=== PATIENT | male | born 1955 | race Caucasian/White ===

== ENCOUNTER → 2022-05-11 11:25 | Outpatient (CLI) | payer MEDICARE, SELFPAY | PROVIDERS: PCP Nurse Practitioner Family; Visit Provider Nurse Practitioner Family | DX: M54.9 Dorsalgia, unspecified (principal) | CPT/HCPCS: 87086 ==

== ENCOUNTER → 2022-06-27 14:23 | Outpatient (CLI) | payer MEDICARE, SELFPAY ==
[2022-06-27 14:19] LABS: Basophils # 0.1 K/mm3 (0-0.2); Basophils % 0.8 % (0.1-2.0); Eosinophils # 0.2 K/mm3 (0.0-0.4); Eosinophils % 2.1 % (0.1-12.0); Hemoglobin 16.2 g/dL (14.1-18.0); Lymphocytes # 1.5 K/mm3 (0.7-4.5); Lymphocytes % 21.2 % (10-50); Mean Corpuscular HGB Conc 33.1 g/dL (31.8-35.4); Mean Corpuscular Hemoglobin 32.7 pg (27.0-31.2); Mean Corpuscular Volume 98.9 fl (80-94); Mean Platelet Volume 8.5 fl (7.4-10.4); Monocytes # 0.7 K/mm3 (0.1-1.0); Monocytes % 9.1 % (1.7-9.3); Neutrophils # 4.8 K/mm3 (1.8-7.8); Neutrophils % 66.8 % (37.0-80.0); Platelet Count 262 K/mm3 (142-424); Red Blood Count 4.96 M/mm3 (4.60-6.20); Red Cell Distribution Width 13.8 % (11.5-17.5); White Blood Count 7.2 K/mm3 (4.8-10.8)
[2022-06-27 15:17] LABS: Alanine Aminotransferase 59 U/L (12-78); Albumin Level 4.6 g/dl (3.5-5.0); Albumin/Globulin Ratio 1.6 (1.1-1.8); Alkaline Phosphatase 55 U/L (38-126); Anion Gap 12.8 mEq/L (5-15); Aspartate Amino Transferase 46 U/L (17-59); Blood Urea Nitrogen 14 mg/dl (9-20); Calcium 9.4 mg/dl (8.4-10.2); Carbon Dioxide 30 mmol/L (22.0-30.0); Chloride 100 mmol/L (98-107); Chol/HDL Ratio 4.1 (1-3.5); Cholesterol 155 mg/dl (140-200); Estimated Glomerular Filt Rate 84 ml/min (>60); GFR (African American) 102 ML/MIN (>60); Globulin 2.8 g/dL (1.3-3.2); Glucose 112 mg/dl (74-100); HDL Cholesterol 38 mg/dl (40-60); Potassium 4.8 mmoL/L (3.5-5.1); Sodium 138 mmol/L (136-145); Total Protein,Serum 7.4 g/dl (6.3-8.2); Triglycerides 196 mg/dl (30-150); VLDL Cholesterol 39 mg/dL (0-40)
[2022-06-27 15:35] LABS: Direct LDL Cholesterol 88.46 mg/dL (100-129)
[2022-06-27 15:54] LABS: Hemoglobin A1C 6.5 % (4.0-6.0)
== END ==
PROVIDERS: PCP Family Medicine; Visit Provider Family Medicine
DX: E11.9 Type 2 diabetes mellitus without complications (principal); R07.89 Other chest pain
CPT/HCPCS: 80053; 80061; 83036; 85025

== ENCOUNTER → 2023-01-02 08:12 | Outpatient (CLI) | payer MEDICARE, SELFPAY ==
[2023-01-02 21:15] LABS: Alanine Aminotransferase 49 U/L (12-78); Albumin Level 4.6 g/dl (3.5-5.0); Albumin/Globulin Ratio 1.6 (1.1-1.8); Alkaline Phosphatase 66 U/L (38-126); Anion Gap 13.3 mEq/L (5-15); Aspartate Amino Transferase 57 U/L (17-59); Bilirubin,Total 1.1 mg/dl (0.2-1.3); Blood Urea Nitrogen 20 mg/dl (9-20); Calcium 9.8 mg/dl (8.4-10.2); Carbon Dioxide 26 mmol/L (22.0-30.0); Chloride 103 mmol/L (98-107); Chol/HDL Ratio 4.5 (1-3.5); Cholesterol 184 mg/dl (140-200); Estimated Glomerular Filt Rate 84 ml/min (>60); GFR (African American) 102 ML/MIN (>60); Globulin 2.9 g/dL (1.3-3.2); Glucose 119 mg/dl (74-100); HDL Cholesterol 41 mg/dl (40-60); Potassium 4.3 mmoL/L (3.5-5.1); Sodium 138 mmol/L (136-145); Total Protein,Serum 7.5 g/dl (6.3-8.2); Triglycerides 272 mg/dl (30-150); VLDL Cholesterol 54 mg/dL (0-40)
[2023-01-02 21:26] LABS: Direct LDL Cholesterol 102.59 mg/dL (100-129)
[2023-01-02 21:38] LABS: Basophils # 0.1 K/mm3 (0-0.2); Basophils % 0.6 % (0.1-2.0); Eosinophils # 0.3 K/mm3 (0.0-0.4); Eosinophils % 4.1 % (0.1-12.0); Hematocrit 47.5 % (42.0-52.0); Hemoglobin 16.6 g/dL (14.1-18.0); Lymphocytes # 1.3 K/mm3 (0.7-4.5); Lymphocytes % 18.3 % (10-50); Mean Corpuscular HGB Conc 34.9 g/dL (31.8-35.4); Mean Corpuscular Hemoglobin 34.9 pg (27.0-31.2); Mean Corpuscular Volume 99.8 fl (80-94); Mean Platelet Volume 8.6 fl (7.4-10.4); Monocytes # 0.5 K/mm3 (0.1-1.0); Monocytes % 7.4 % (1.7-9.3); Neutrophils % 69.6 % (37.0-80.0); Platelet Count 219 K/mm3 (142-424); Red Blood Count 4.76 M/mm3 (4.60-6.20); White Blood Count 7.2 K/mm3 (4.8-10.8)
[2023-01-02 21:44] LABS: Prostate Specific Ag Screen 0.9 ng/ml (0.0-4.0)
[2023-01-02 22:06] LABS: Hemoglobin A1C 6.2 % (4.0-6.0)
== END ==
PROVIDERS: PCP Family Medicine; Visit Provider Family Medicine
DX: Z00.00 Encounter for general adult medical examination without abnormal findings (principal); Z12.5 Encounter for screening for malignant neoplasm of prostate; E11.9 Type 2 diabetes mellitus without complications; R07.89 Other chest pain; Z79.899 Other long term (current) drug therapy
CPT/HCPCS: 80053; 80061; 83036; 85025; G0103

== ENCOUNTER 2023-12-29 09:20 | Outpatient (CLI) | payer MEDICARE, SELFPAY | END 2023-12-29 23:59 | disposition home or self-care (01) | LOC: LAB.DROPOF 01-01 09:20 | PROVIDERS: PCP Nurse Practitioner Family; Visit Provider Nurse Practitioner Family | DX: R31.9 Hematuria, unspecified (principal) | CPT/HCPCS: 87086 ==

== ENCOUNTER 2024-10-14 16:30 | Outpatient (CLI) | payer MEDICARE, SELFPAY ==
--- OUTSIDE RECORDS SUMMARY | 2024-09-12 10:15 | XMS_ITS | Encounter Summary ---
Author Organization 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 Name Role Phone Jorge Hagen MD Primary Care Provider [phone] Reason for Referral * Echo (Routine) - Authorized Specialty Diagnoses / Procedures Referred By Contac t Referred To Contact Radiology Diagnoses Hx of CABG Ischemic cardiomyopathy Procedures EC ECHOCARDIOGRAM COMPLETE W DOPPLER AND COLOR FLOW MAPPING Anand Victor MD [address] [place] [address] Phone: tel: fax: Referral ID Status Reason Start Date Expiration Date V isits Requested Visits Authorized [id number] Authorized 09/12/2024 09/12/2026 1 1 Reason for Visit * Reason Comments Follow-up 6 mo ck Encounter Details Date Type Department Care Team (Latest Contact Info) Description 09/12/2024 10:15 AM EDT Office Visit SEP H&V NPTFTT [address] [place] [phone] Anand Victor MD [address] [place] [address] Coronary artery disease involving [place] coronary artery of [place] heart without angina pectoris (Primary Dx); Hx of CABG; Ischemic cardiomyopathy; Essential hypertension; Paroxysmal atrial fibrillation (HCC); Pure hypercholesterolemia Social History Tobacco Use Types Packs/Day Years Used Date Smoking Tobacco: Former Cigarettes 3 27.8 0 03/06/1970 - 12/29/1997 Smokeless Tobacco: Former Quit: 12/29/1997 Tobacco Cessation:Counseling Given: Not Answered Alcohol Use Standard Drinks/Week Comments Yes 4 (1 standard drink = 0.6 oz pur e alcohol) 4-6 /day. BEER Hunger Vital Sign Answer Date Recorded Within the past 12 months, y ou worried that your food would run out before you got the money to buy more. Never true 03/29/19 23 Within the past 12 months, t he food you bought just didn't last and you didn't have money to get more. Never true 03/29/2022 PRAPARE - Transportation Answer Date Re corded In the past 12 months, has l ack of transportation kept you from medical appointments or from getting medications? No 03/07 In the past 12 months, has l ack of transportation kept you from meetings, work, or from getting things needed for daily living? No 03/29/2022 Sex and Gender Information Value Date Recorded Sex Assigned at Not on file Legal Sex Male 7:07 PM EDT Gender Identity Not on file Sexual Orientation Not on file documented as of this encounter Last Filed Vital Signs Vital Sign Reading Time Taken Comments Blood Pressure 124/60 09/12/2024 10:12 AM EDT Pulse 64 09/12/2024 10:12 AM EDT Temperature - - Respiratory Rate - - Oxygen Saturation 98% 09/12/2024 10: 12 AM EDT Inhaled Oxygen Concentration - - Weight 107.7 kg (237 lb 6.4 oz) 025 10:12 AM EDT Height 182.9 cm (6') 09/12/2024 10:12 AM EDT Body Mass Index 32.2 09/12/2024 10:12 AM EDT documented in this encounter Ordered Prescriptions Prescription Sig Dispense Quantity Refills Last Filled Start Date End Date apixaban (ELIQUIS) 5 mg Oral Tablet Take 1 Tablet by mouth 2 times daily. 60 Tablet 5 09/12/2024 09/12/2024 documented in this encounter Progress Notes * Anand Victor MD - 09/12/2024 10:15 AM EDT Cardiology Follow Up Visit Name: Brayan Garciasmitt : 1955 Referring Physician Jorge Hagen MD Reason for Follow-up CAD, ICM, A.Fib HPI 68 y.o. male is seen for follow up regarding CAD, ICM and persistent atrial fibrillation. He feels fairly well. Remains very active without anginal symptoms. There is some confusion regarding his medications. Apparently he is not taking Eliquis but remains on asa and Plavix. ROS Positive: arthritic pain Denies: Change in vision, headache, fever, chills, nausea, vomiting, anorexia, diarrhea, change in bowel or bladder habits, weight loss or gain. No palpitations, lightheadedness, dizziness, syncope, or near syncope. No extreme fatigue, daytime solomence or change in energy level. No significant depression or anhedonia. Current Outpatient Medications Medication Sig Dispense Refill albuterol (PROVENTIL HFA;VENTOLIN HFA) 90 mcg/actuation Inhl HFA Aerosol Inhaler Inhale 2 Puffs into the lungs every 6 hours as needed for Shortness of Breath. apixaban (ELIQUIS) 5 mg Oral Tablet Take 1 Tablet by mouth 2 times daily. 60 Tablet 5 aspirin 81 mg Oral Tablet, Chewable Take 1 Tablet by mouth daily. 30 Tablet 11 calcium carbonate (TUMS) 200 mg calcium (500 mg) chewable tablet Take 1 Tab by mouth as needed for Heartburn. clopidogreL (PLAVIX) 75 mg Oral Tablet Take 75 mg by mouth once. fluconazole (DIFLUCAN) 200 mg Oral Tablet Take 200 mg by mouth once a week. fUROsemide (LASIX) 80 mg Oral Tablet Take 1 Tab by mouth 2 times daily. isosorbide mononitrate (IMDUR) 30 mg Oral Tablet Sustained Release 24 hr Take 30 mg by mouth every morning. losartan (COZAAR) 25 mg tablet Take 25 mg by mouth daily. metoprolol succinate ER (TOPROL-XL) 100 mg Oral Tablet Sustained Release 24 hr Take 1 Tablet by mouth daily. 30 Tablet 11 nitroGLYCERIN (NITROSTAT) 0.[address] 1 Tab under the tongue every 5 minutes as needed. 25 Tab 4 potassium chloride (K-DUR) 10 mEq Oral Tablet Sustained Release Take 1 Tab by mouth 2 times daily. rosuvastatin (CRESTOR) 40 mg Oral Tablet Take 40 mg by mouth daily. traMADoL (ULTRAM) 50 mg Oral Tablet Take 50 mg by mouth 3 times daily as needed for Pain. triamcinolone (KENALOG) 0.1 % Top Cream Apply topically daily as needed. vitamin E 400 unit Oral Capsule Take 800 Units by mouth daily. No current facility-administered medications for this visit. Allergies Allergen Reactions Atropine Hives, Other (See Comments) and Rash Red Dye Rash and Other (See Comments) Amlodipine Rash Objective Vitals: 09/12/24 1012 BP: 124/60 Pulse: 64 SpO2: 98% Exam: GENERAL APPEARANCE: In no acute distress HEENT: Normocephalic, Atraumatic, Sclera anicteric, Pupils equal, round, and reactive. NECK: No JVD, No Bruit. Carotid upstrokes are full. RESPIRATORY: diminished at bases. No rales or wheezing HEART: IIR No Murmur VASCULAR: Normal pulses, equal bilaterally. ABDOMEN: Soft, nontender, no organomegaly, no distension. EXTREMITIES: No edema No cyanosis. Good capillary refill. No results found for this visit on 09/12/24. Labs Lab Results Component Value Date CHOLESTEROL 161 08/17/2018 CHOLESTEROL 257 (H) 04/06/2016 HDL 32 (L) 08/17/2018 HDL 35 (L) 04/06/2016 HDL 39 07/19/2014 LDLCALC 92 08/17/2018 LDLCALC 182 (H) 04/06/2016 LDLCALC 99 07/19/2014 TRIG 187 (H) 08/17/2018 TRIG 199 (H) 04/06/2016 Lab Results Component Value Date INR 1.22 (H) 03/31/2022 INR 1.29 (H) 03/28/2022 INR 1.22 (H) 04/06/2016 Lab Results Component Value Date WBC 6.7 03/29/2022 WBC 7.4 03/28/2022 WBC 6.4 03/17/2022 HGB 17.3 03/29/2022 HGB 17.1 03/28/2022 HGB 17.6 (H) 03/17/2022 HCT 48.5 03/29/2022 HCT 48.6 03/28/2022 HCT 49.0 03/17/2022 MCV 94.2 03/29/2022 MCV 94.7 03/28/2022 MCV 94.6 03/17/2022 PLT 167 03/29/2022 PLT 157 03/28/2022 PLT 178 03/17/2022 No results found for: HGBA1C Lab Results Component Value Date NA 133 (L) 03/29/2022 NA 136 03/28/2022 NA 132 (L) 03/17/2022 K 4.3 03/31/2022 K 4.4 03/29/2022 K 4.0 03/28/2022 BUN 13 03/29/2022 BUN 12 03/28/2022 BUN 22 03/17/2022 CALCIUM 9.9 03/29/2022 CALCIUM 9.6 03/28/2022 CALCIUM 10.1 03/17/2022 CL 98 03/29/2022 CL 99 03/28/2022 CL 95 (L) 03/17/2022 CO2 25 03/29/2022 CO2 25 03/28/2022 CO2 25 03/17/2022 CREATININE 0.98 03/29/2022 CREATININE 0.97 03/28/2022 CREATININE 1.08 03/17/2022 GLU 93 03/29/2022 GLU 95 03/28/2022 GLU 102 (H) 03/17/2022 Lab Results Component Value Date ALT 53 (H) 03/28/2022 ALT 42 (H) 03/17/2022 ALT 68 (H) 04/23/2019 AST 43 (H) 03/28/2022 AST 36 03/17/2022 AST 47 (H) 04/23/2019 ALKPHOS 54 03/28/2022 ALKPHOS 67 03/17/2022 ALKPHOS 55 04/23/2019 Cardiac Testing: Echo 03/19: EF 40%, bas-septal and inf AK, mild MR Charanjit-SPECT 03/19: small apical lateral rev defect (refuses any further eval) Cardiac Cath 04/22: graft dependent dz with patent: SVG to PDA, SVG to OM2, LOCKHART to LAD. EF 50-55% GXT - Myoview 08/22: 5.4 METs. Normal ekgf and nuclear perfusion. EF 50% Echo 09/24: EF 40-45%. Mild global HK. Severe HK of basilar inferior. Mild RVD. Echo 04/29: EF 40%. The basal inferoseptal is akinetic. The apical inferior wall, mid inferior wall,basal anterior wall, mid anterior wall, mid inferoseptal, basal anterolateral wall, mid anterolateral wall, basal anteroseptal, mid anteroseptal, basal inferolateral wall, and mid inferolateral wall are hypokinetic.Ascending aorta 4.5 cm. 48 Hour Holter 04/29: Underlying atrial fibrillation with average heart rate of 84 bpm and range of 61-137. Occasional PVC Assessment: Persistent Atrial Flutter / Fibrillation - rate controlled - previously taken off coumadin due to noncompliance - he declined EP eval - he is not on Eliquis as previously reported CAD h/o CABG 2007 - no anginal complaints - recently PCI in setting of AK in [place] - incomplete database SOLARES - improved with weight loss Chronic chest pain - improved Ischemic Cardiomyopathy -prior inferior AK - EF in 40-45% range Chronic Diastolic HF - compensated Hypertension - controlled Hyperlipidemia - on statin Obstructive Sleep Apnea - has declined work up in past H/o Noncompliance - now compliant with insurance coverage H/o Elevated LFT's Reported CVA 07/27 - reports CVA at time of AK 07/27 - no residual effects Plan: Will start Eliquis 5 bid and stop Plavix If cost prohibitive continue DAPT Continue Metoprolol, Losartan, Crestor Labs today Echo Consider SGLT2i on f/u RTC 5 months P. Arie Victor MD documented in this encounter Plan of Treatment Upcoming Encounters Date Type Department Care Team (Late st Contact Info) Description 10/31/2024 9:45 AM EDT Appointment FTT ECHO [address] [place] [phone] Anand Victor MD [address] [place] [address] 03/19/2025 9:30 AM EST Office Visit SEP H&V NPTFTT [address] [place] [phone] Batsheva Quiroz APRN [address] [place] [address] Scheduled Orders Name Type Priority Associated Diagnoses Orde r Schedule EC ECHOCARDIOGRAM COMPLETE W DOPPLER AND COLOR FLOW MAPPING Imaging Cardiology Routine Hx of CABG Ischemic cardiomyopathy 1 Occurrences starting 09/12/2024 until 09/12/2026 documented as of this encounter Results * TSH REFLEX TO FT4 (09/12/2024 11:10 AM EDT) TSH Reflex 1.630 0.270 - 4.200 mcIU/mL 09/12/2024 3:55 PM EDT [facility] Blood VENOUS BLOOD / Unknown Venipuncture / Unknown 09/12/2024 11:10 AM EDT 09/12/2024 11:10 AM EDT Narrative PREFERRED [employer] [facility] - 09/12/2024 3:55 PM EDT Ingestion of crista doses of biotin (>5 mg/day) taken within 8 hours of drawing blood sample can interfere with this immunoassay test. Anand Victor MD CHEMISTRY ORDERABLES Fi nal Result PREFERRED [facility] [address] [facility] , [place] [address] * (ABNORMAL) LIPID SCREEN (09/12/2024 11:10 AM EDT) Cholesterol 138 <200 mg/dL 09/12/2024 3:55 PM EDT [employer] Comment: < 200 Desirable 200 - 239 Borderline High >= 240 High Triglyceride 228(H) <150 mg/dL 09/12/2024 3:55 PM EDT [employer] Comment: < 150 Normal 150 - 199 Borderline High 200 - 499 High >= 500 Very High HDL 27(L) >=40 mg/dL 09/12/2024 3:55 PM EDT [employer] Comment: > 60 Optimal 40 - 60 Acceptable < 40 Low LDL Calculated 73 <100 mg/dL 09/12/2024 3:55 PM EDT [employer] Comment: < 100 Optimal 100 - 129 Near or above optimal 130 - 159 Borderline High 160 - 189 High >= 190 Very High The National Institutes of Health (NIH) equation is used for all lipid panels that report calculated LDL (LDL-C). Non-HDL-C Calculated 111 <=129 mg/dL 09/12/2024 3:55 PM EDT [employer] Comment: <130 Desirable 130-159 Above Desirable 160-189 Borderline High 190-219 High >= 220 Very High Fasting Specimen? Yes None 025 3:55 PM EDT [facility] Blood VENOUS BLOOD / Unknown Venipuncture / Unknown 09/12/2024 11:10 AM EDT 09/12/2024 11:10 AM EDT Anand Victor MD CHEMISTRY ORDERABLES Fi nal Result [facility] [address] [facility] , [place] [address] * (ABNORMAL) CBC WITH DIFF (09/12/2024 11:10 AM EDT) WBC 4.8 3.7 - 10.3 x10(3)/mcL 09/12/2024 3:49 PM EDT [facility] RBC 4.67 4.60 - 6.10 x10(6)/mcL 09/12/2024 3:49 PM EDT [facility] Hgb 14.9 13.7 - 17.5 g/dL 09/12/2024 3:49 PM EDT [facility] Hct 42.8 40.0 - 51.0 % 09/12/2024 3:49 PM EDT [facility] MCV 91.6 80.0 - 100.0 fL 09/12/2024 3:49 PM EDT [facility] MCH 31.9 26.0 - 34.0 pg 09/12/2024 3:49 PM EDT [facility] MCHC 34.8 30.7 - 35.5 g/dL 09/12/2024 3:49 PM EDT [facility] RDW 13.2 <=14.9 % 09/12/2024 3:49 PM EDT [facility] Platelet 169 155 - 369 x10(3)/mcL 09/12/2024 3:49 PM EDT [facility] MPV 10.0 8.8 - 12.5 fL 09/12/2024 3:49 PM EDT [facility] Neut Percent 63.2 % 09/12/2024 3:49 PM EDT [facility], [facility] Comment:Neutrophils equals s egs plus bands Imm Gran% 0.8 % 09/12/2024 3:49 PM EDT [facility] Comment:Automated count of m etamyelocytes, myelocytes and promyelocytes. Lymph Percent 21.0 % 09/12/2024 3:49 PM EDT [facility] Delta Percent 11.7 % 09/12/2024 3:49 PM EDT [facility] Eos Percent 2.5 % 09/12/2024 3:49 PM EDT [facility] Baso Percent 0.8 % 09/12/2024 3:49 PM EDT [facility] Neut # 3.0 1.6 - 6.1 x10(3)/mcL 09/12/2024 3:49 PM EDT [facility], [facility] Comment:Neutrophils equals s egs plus bands IMMGRAN# 0.0 0.0 - 0.1 x10(3)/mcL 09/12/2024 3:49 PM EDT [facility] Comment:Automated count of m etamyelocytes, myelocytes and promyelocytes. An absolute IG <0.1 is reported as 0.0. Lymph # 1.0(L) 1.2 - 3.9 x10(3)/mcL 09/12/2024 3:49 PM EDT [facility] Delta # 0.6 0.3 - 0.9 x10(3)/mcL 09/12/2024 3:49 PM EDT [facility] Eos# 0.1 0.0 - 0.5 x10(3)/mcL 09/12/2024 3:49 PM EDT [facility], [facility] Baso # 0.0 0.0 - 0.1 x10(3)/[facility] 09/12/2024 3:49 PM EDT [facility] [employer], [facility] Blood VENOUS BLOOD / Unknown Venipuncture / Unknown 09/12/2024 11:10 AM EDT 09/12/2024 11:10 AM EDT Anand Victor MD HEMATOLOGY ORDERABLES F inal Result [facility] [address] [facility] , [address] [place] [id number] * (ABNORMAL) COMPREHENSIVE METABOLIC PANEL (09/12/2024 11:10 AM EDT) Sodium 133(L) 136 - 145 mmol/L 09/12/2024 3:55 PM EDT [facility] Potassium 4.2 3.5 - 5.0 mmol/L 09/12/2024 3:55 PM EDT [facility] Chloride 96(L) 98 - 107 mmol/L 09/12/2024 3:55 PM EDT [facility] Total CO2 26 22 - 29 mmol/L 09/12/2024 3:55 PM EDT [facility] Anion Gap 11 7 - 16 mmol/L 09/12/2024 3:55 PM EDT [facility] Calcium 9.3 8.8 - 10.4 mg/dL 09/12/2024 3:55 PM EDT [facility] Glucose Lvl 335(H) 70 - 99 mg/dL 09/12/2024 3:55 PM EDT [facility] BUN 10 8 - 23 mg/dL 09/12/2024 3:55 PM EDT [facility] Creatinine 0.86 0.67 - 1.30 mg/dL 09/12/2024 3:55 PM EDT [facility] Albumin 4.4 3.2 - 4.6 gm/dL 09/12/2024 3:55 PM EDT [facility] Total Protein 7.2 6.4 - 8.3 gm/dL 09/12/2024 3:55 PM EDT [facility] Bili Total 1.0 0.2 - 1.4 mg/dL 09/12/2024 3:55 PM EDT [facility] ALT 29 <=41 U/L 09/12/2024 3:55 PM EDT [facility] AST 30 <=40 U/L 09/12/2024 3:55 PM EDT [facility] Alk Phos 86 40 - 129 U/L 09/12/2024 3:55 PM EDT [facility] eGFR (CKD-EPIcr 2020) 94 >=60 mL/min/1.7 3 m2 09/12/2024 3:55 PM EDT [employer] Comment:Estimated GFR was ca lculated using the CKD-EPIcr (2020) equation refit without race. The equation is recommended by the National Kidney [employer] - [place] [employer] of Nephrology Task Force. Blood VENOUS BLOOD / Unknown Venipuncture / Unknown 09/12/2024 11:10 AM EDT 09/12/2024 11:10 AM EDT us Anand Victor MD CHEMISTRY ORDERABLES Fi nal Result [employer] [address] [facility] , [place] [address] documented in this encounter Visit Diagnoses Diagnosis Coronary artery disease involving [place] coronary artery of [place] heart without angina pectoris- Primary Hx of CABG Postsurgical aortocoronary bypass status Ischemic cardiomyopathy Other specified forms of chronic ischemic heart disease Essential hypertension Unspecified essential hypertension Paroxysmal atrial fibrillation (HCC) Atrial fibrillation Pure hypercholesterolemia documented in this encounter 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
--- OUTSIDE RECORDS SUMMARY | 2024-09-12 11:05 | XMS_ITS | Encounter Summary ---
Author Organization [place] [address] Care Team Providers Care Property Field Adjuster Name Role Phone Jorge Hagen MD Primary Care Provider [phone] Encounter Details Date Type Department Care Team (Latest Contact Info) Description 09/12/2024 11:05 AM EDT - 09/12/2024 11:59 PM EDT Hospital Encounter [facility] SITE [address] [place] [address] Coronary artery disease involving yankton coronary artery of yankton heart without angina pectoris; Paroxysmal atrial fibrillation (HCC); Pure hypercholesterolemia Discharge Disposition: Home or Self Care Social History Tobacco Use Types Packs/Day Years Used Date Smoking Tobacco: Former Cigarettes 3 27.8 0 03/06/1970 - 12/29/1997 Smokeless Tobacco: Former Quit: 12/29/1997 Alcohol Use Standard Drinks/Week Comments Yes 4 [...] on file documented as of this encounter Medications at Time of Discharge albuterol (PROVENTIL HFA;VENTOLIN HFA) 90 mcg/actuation Inhl HFA Aerosol Inhaler Inhale 2 Puffs into the lungs every 6 hours as needed for Shortness of Breath. apixaban (ELIQUIS) 5 mg Oral TabletIndications: Paroxysmal atrial fibrillation (HCC) Take 1 Tablet by mouth 2 times daily. 60 Tablet 5 03/17/2022 aspirin 81 mg Oral Tablet, Chewable Take 1 Tablet by mouth daily. 30 Tablet 11 04/01/2022 calcium carbonate (TUMS) 200 mg calcium (500 mg) chewable tablet Take 1 Tab by mouth as needed for Heartburn. fluconazole (DIFLUCAN) 200 mg Oral Tablet Take 200 mg by mouth once a week. fUROsemide (LASIX) 80 mg Oral Tablet Take 1 Tab by mouth 2 times daily. 09/12/2018 isosorbide mononitrate (IMDUR) 30 mg Oral Tablet Sustained Release 24 hr Take 30 mg by mouth every morning. losartan (COZAAR) 25 mg tablet Take 25 mg by mouth daily. metoprolol succinate ER (TOPROL-XL) 100 mg Oral Tablet Sustained Release 24 hr Take 1 Tablet by mouth daily. 30 Tablet 11 04/01/2022 nitroGLYCERIN (NITROSTAT) 0.4 mg SL Tablet, SublingualIndicati ons:Medication refill Place 1 Tablet under the tongue every 5 minutes as needed. 25 Tablet 4 09/12/2024 potassium chloride (K-DUR) 10 mEq Oral Tablet Sustained Release Take 1 Tab by mouth 2 times daily. 09/12/2018 rosuvastatin (CRESTOR) 40 mg Oral Tablet Take 40 mg by mouth daily. traMADoL (ULTRAM) 50 mg Oral Tablet Take 50 mg by mouth 3 times daily as needed for Pain. triamcinolone (KENALOG) 0.1 % Top Cream Apply topically daily as needed. 06/17/2020 vitamin E 400 unit Oral Capsule Take 800 Units by mouth daily. documented as of this encounter Discharge Disposition Disposition Code Departure Means Destination Home or Self Care documented in this encounter Plan of Treatment Upcoming Encounters Date Type Department Care Team (Late st Contact Info) Description 10/31/2024 9:45 AM EDT Appointment [facility] E[facility] [address] [place] [address] Anand Victor MD [address] [facility] [place] [address] 03/19/2025 9:30 AM EST Office Visit [facility] [address] [place] [address] Batsheva Quiroz, PLUMBER APPRENTICE [address] [place] [address] documented as of this encounter Procedures Procedure Name Priority Date/Time Associated Diagnosis Comments TSH REFLEX TO FT4 Routine 09/12/2024 11:10 AM EDT Coronary artery disease involving y[place] coronary artery of [place] heart without angina pectoris Paroxysmal atrial fibrillation (HCC) Pure hypercholesterolemia CBC WITH DIFF Routine 09/12/2024 11:10 AM EDT Coronary artery disease involving [place] coronary artery of yankton heart without angina pectoris Paroxysmal atrial fibrillation (HCC) Pure hypercholesterolemia LIPID SCREEN Routine 09/12/2024 11:10 AM EDT Coronary artery disease involving y[place] coronary artery of yankton heart without angina pectoris Paroxysmal atrial fibrillation (HCC) Pure hypercholesterolemia COMPREHENSIVE METABOLIC PANEL Routine 09/12/2024 11:10 AM EDT Coronary artery disease involving yankton coronary artery of yankton heart without angina pectoris Paroxysmal atrial fibrillation (HCC) Pure hypercholesterolemia documented in this encounter Results * TSH REFLEX TO FT4 (09/12/2024 11:10 AM EDT) TSH Reflex 1.630 0.270 - 4.200 mcIU/mL 09/12/2024 3:55 PM EDT [employer] [facility] Blood VENOUS BLOOD / Unknown Venipuncture / Unknown 09/12/2024 11:10 AM EDT 09/12/2024 11:10 AM EDT Narrative PREF[facility] [employer] [facility] - 09/12/2024 3:55 PM EDT Ingestion of crista doses of biotin (>5 mg/day) taken within 8 hours of drawing blood sample can interfere with this immunoassay test. Anand Victor MD CHEMISTRY ORDERABLES Fi nal Result Performing Organization Address City/[facility]/ZIP Co de Phone Number PREFERRED [employer] [address] , [address] [place] [address] * (ABNORMAL) LIPID SCREEN (09/12/2024 11:10 AM EDT) [facility] Cholesterol 138 <200 mg/dL 09/12/2024 3:55 PM EDT [facility] [employer] Comment: < 200 Desirable 200 - 239 Borderline High >= 240 High Triglyceride 228(H) <150 mg/dL 09/12/2024 3:55 PM EDT [facility] [employer] Comment: < 150 Normal 150 - 199 Borderline High 200 - 499 High >= 500 Very High HDL 27(L) >=40 mg/dL 09/12/2024 3:55 PM EDT [employer] Comment: > 60 Optimal 40 - 60 Acceptable < 40 Low LDL Calculated 73 <100 mg/dL 09/12/2024 3:55 PM EDT [facility] Comment: < 100 Optimal 100 - 129 Near or above optimal 130 - 159 Borderline High 160 - 189 High >= 190 Very High The National Institutes of Health (NIH) equation is used for all lipid panels that report calculated LDL (LDL-C). Non-HDL-C Calculated 111 <=129 mg/dL 09/12/2024 3:55 PM EDT [employer] Comment: <130 Desirable 130-159 Above Desirable 160-189 Borderline High 190-219 High >= 220 Very High Fasting Specimen? Yes None 025 3:55 PM EDT [facility] [employer] Blood VENOUS BLOOD / Unknown Venipuncture / Unknown 09/12/2024 11:10 AM EDT 09/12/2024 11:10 AM EDT Anand Victor MD CHEMISTRY ORDERABLES Fi nal Result Performing Organization Address City/[facility]/ZIP Co de Phone Number [facility] [employer] [employer] [address] , [place] [place] [address] * (ABNORMAL) CBC WITH DIFF (09/12/2024 11:10 AM EDT) [facility] WBC 4.8 3.7 - 10.3 x10(3)/mcL 09/12/2024 [...] 3:49 PM EDT [facility] Comment:Neutrophils equals s egs plus bands Imm Gran% 0.8 % 09/12/2024 3:49 PM EDT [facility] Comment:Automated count of m etamyelocytes, myelocytes and promyelocytes. Lymph Percent 21.0 % 09/12/2024 3:49 PM EDT [facility] Prairie Percent 11.7 % 09/12/2024 3:49 PM EDT [facility] Eos Percent 2.5 % 09/12/2024 3:49 PM EDT [facility] Baso Percent 0.8 % 09/12/2024 3:49 PM EDT [facility] Neut # 3.0 1.6 - 6.1 x10(3)/[facility] 09/12/2024 3:49 PM EDT [facility] Comment:Neutrophils equals s egs plus bands IMMGRAN# 0.0 0.0 - 0.1 x10(3)/mcL 09/12/2024 3:49 PM EDT [facility] Comment:Automated count of m etamyelocytes, myelocytes and promyelocytes. An absolute IG <0.1 is reported as 0.0. Lymph # 1.0(L) 1.2 - 3.9 x10(3)/[facility] 09/12/2024 3:49 PM EDT [facility] [place] # 0.6 0.3 - 0.9 x10(3)/[facility] 09/12/2024 3:49 PM EDT [facility] Eos# 0.1 0.0 - 0.5 x10(3)/[facility] 09/12/2024 3:49 PM EDT [facility] Baso # 0.0 0.0 - 0.1 x10(3)/[facility] 09/12/2024 3:49 PM EDT [facility] Blood VENOUS BLOOD / Unknown Venipuncture / Unknown 09/12/2024 11:10 AM EDT 09/12/2024 11:10 AM EDT Anand Victor MD HEMATOLOGY ORDERABLES F inal Result [facility] [address] , [address] [place] [id number] * (ABNORMAL) COMPREHENSIVE METABOLIC PANEL (09/12/2024 11:10 AM EDT) Sodium 133(L) 136 - 145 mmol/L 09/12/2024 3:55 PM EDT [facility] Potassium 4.2 3.5 - 5.0 mmol/L 09/12/2024 3:55 PM EDT [facility] Chloride 96(L) 98 - 107 mmol/L 09/12/2024 3:55 PM EDT [facility] Total CO2 26 22 - 29 mmol/L 09/12/2024 3:55 PM EDT [facility] Anion Gap 11 7 - 16 mmol/L 09/12/2024 3:55 PM EDT [facility] Calcium 9.3 8.8 - 10.4 mg/dL 09/12/2024 3:55 PM EDT [facility] Glucose Lvl 335(H) 70 - 99 mg/dL 09/12/2024 3:55 PM EDT [facility] BUN 10 8 - 23 mg/dL 09/12/2024 3:55 PM EDT [facility] Creatinine 0.86 0.67 - 1.30 mg/dL 09/12/2024 3:55 PM EDT [facility] Albumin 4.4 3.2 - 4.6 gm/dL 09/12/2024 3:55 PM EDT [facility] Total Protein 7.2 6.4 - 8.3 gm/dL 09/12/2024 3:55 PM EDT [facility] Bili Total 1.0 0.2 - 1.4 mg/dL 09/12/2024 3:55 PM EDT [facility] ALT 29 <=41 U/L 09/12/2024 3:55 PM EDT [facility] AST 30 <=40 U/L 09/12/2024 3:55 PM EDT [facility] Alk Phos 86 40 - 129 U/L 09/12/2024 3:55 PM EDT [facility] eGFR (CKD-EPIcr 2020) 94 >=60 mL/min/1.7 3 m2 09/12/2024 3:55 PM EDT [facility] Comment:Estimated GFR was ca lculated using the CKD-EPIcr (2020) equation refit without race. The equation is recommended by the National Kidney Foundation - [place] Society of Nephrology Task Force. Blood VENOUS BLOOD / Unknown Venipuncture / Unknown 09/12/2024 11:10 AM EDT 09/12/2024 11:10 AM EDT Anand Victor MD CHEMISTRY ORDERABLES Fi nal Result [facility] [employer] [address] , [place] [address] documented in this encounter Visit Diagnoses Diagnosis Coronary artery disease involving yankton coronary artery of yankton heart without angina pectoris Paroxysmal atrial fibrillation (HCC) Atrial fibrillation Pure hypercholesterolemia documented in this encounter Care Teams Property Field Adjuster Relationship Specialty Start Date End Date Jorge Hagen MD PCP - General Family Medicine 04/22/12 documented as of this encounter
[2024-10-14 19:33] LABS: Hematocrit 44.6 % (42.0-52.0); Hemoglobin 15.7 g/dL (14.1-18.0); Immature Granulocytes % 0.4 %; Mean Corpuscular HGB Conc 35.2 g/dL (31.8-35.4); Mean Corpuscular Hemoglobin 31.5 pg (27.0-31.2); Mean Corpuscular Volume 89.4 fl (80-94); Nucleated Red Blood Cells % 0 %; Platelet Count 215 K/mm3 (142-424); Red Blood Count 4.99 M/mm3 (4.60-6.20); Red Cell Distribution Width-SD 40.8 fL; White Blood Count 7.2 K/mm3 (4.8-10.8)
[2024-10-14 20:22] LABS: Alanine Aminotransferase 46 U/L (12-78); Albumin Level 4.6 g/dl (3.5-5.0); Albumin/Globulin Ratio 1.8 (1.1-1.8); Alkaline Phosphatase 156 U/L (38-126); Anion Gap 15.4 mEq/L (5-15); Aspartate Amino Transferase 41 U/L (17-59); Bilirubin,Total 1.0 mg/dl (0.2-1.3); Blood Urea Nitrogen 11 mg/dl (9-20); Calcium 10.0 mg/dl (8.4-10.2); Carbon Dioxide 24 mmol/L (22.0-30.0); Chloride 97 mmol/L (98-107); Cholesterol 160 mg/dl (140-200); Creatinine,Serum 0.70 mg/dl (0.66-1.25); Estimated Glomerular Filt Rate 112 ml/min (>60); GFR (African American) 136 ML/MIN (>60); Globulin 2.6 g/dL (1.3-3.2); Glucose 388 mg/dl (74-100); HDL Cholesterol 35 mg/dl (40-60); Potassium 4.4 mmoL/L (3.5-5.1); Sodium 132 mmol/L (136-145); Total Protein,Serum 7.2 g/dl (6.3-8.2); Triglycerides 393 mg/dl (30-150)
[2024-10-14 21:12] LABS: Hepatitis C Ab Qual. W/ RFX NEGATIVE (Negative)
--- OUTSIDE RECORDS SUMMARY | 2024-10-15 11:25 | XMS_ITS | Encounter Summary ---
Author Organization [place] [address] Care Team Providers Care Dental Hygiene Professor Name Role Phone Jorge Hagen MD Primary Care Provider [phone] Encounter Details Date Type Department Care Team (Late Contact Info) Description 08/07/2019 Lab Requisition [facility] [place] [address] Amaya Ball, [facility] [address] [address] Allergic contact dermatitis, unspecified cause Social History Tobacco Use Types Packs/Day Years Used Date Smoking Tobacco: Former Cigarettes 3 27.8 0 03/06/1970 - 12/29/1997 Smokeless Tobacco: Former Quit: 12/29/1997 Alcohol Use Standard Drinks/Week Comments Yes 4 (1 standard drink = 0.6 oz pur e alcohol) 4-6 /day. BEER Sex and Gender Information Value Date Recorded Sex Assigned at Not on file Legal Sex Male 7:07 PM EDT Gender Identity Not on file Sexual Orientation Not on file documented as of this encounter Plan of Treatment Upcoming Encounters Date Type Department Care Team (Late st Contact Info) Description 10/31/2024 9:45 AM EDT Appointment [facility] ECHO [address] [place] [address] Anand Victor MD [address] [place] [address] 03/19/2025 9:30 AM EST Office Visit [facility] [address] [place] [address] Batsheva QuirozFREDDIE 1 [place], [place] [id number] documented as of this encounter Procedures Procedure Name Priority Date/Time Associated Diagnosis Comments WOUND CULTURE (STAIN INCLUDED) Routine 08/07/2019 12:00 PM EDT Allergic contact dermatitis, unspecified cause documented in this encounter Results * (ABNORMAL) WOUND CULTURE (STAIN INCLUDED) (08/07/2019 12:00 PM EDT) Culture Positive Growth(A) 08/10/2019 2:40 PM EDT [facility] [employer] Culture Very sparse growth of Mixed Skin china 08/10/2019 2:40 PM EDT [facility] Comment:No further workup. Stain Few RBCs 08/10/2019 2:40 PM EDT [facility] [employer] Stain Few WBCs 08/10/2019 2:40 PM EDT [facility] [employer] Stain No organisms seen 08/10/2019 2:40 PM EDT [facility] Swab OTHER SPECIMEN TYPE / Unknown 08/07/2019 12:00 PM EDT 08/07/2019 1:35 PM EDT Amaya LAIRD MICROBIOLOGY - GENERA L ORDERABLES Final Result [facility] [employer] [address] [place] [address] documented in this encounter Visit Diagnoses Diagnosis Allergic contact dermatitis, unspecified cause documented in this encounter Care Teams Dental Hygiene Professor Relationship Specialty Start Date End Date Jorge Hagen MD PCP - General Family Medicine 04/22/12 documented as of this encounter
--- OUTSIDE RECORDS SUMMARY | 2024-10-15 11:25 | XMS_ITS | Encounter Summary ---
Author Organization [place] [address] Care Team Providers Care Spud Grader Name Role Phone Jorge Hagen MD Primary Care Provider [phone] Reason for Visit * Reason Onset Date Comments Medication Question 09/12/2024 Pt is ruddy cam taking clopidigrel from Dr Hagen, received prescriptions for eliquis, asking if patient is to be taking both? Encounter Details Date Type Department Care Team (Late Contact Info) Description 09/12/2024 Telephone [facility] [place] [address] [place] [address] Anand Victor MD [address] [place] [address] Medication Question (Pt is currently taking clopidigrel from Dr Hagen, received prescriptions for eliquis, asking if patient is to be taking both?) Social History Tobacco Use Types Packs/Day Years [...] on file documented as of this encounter Ordered Prescriptions Prescription Sig Dispense Quantity Refills Last Filled Start Date End Date nitroGLYCERIN (NITROSTAT) 0.4 mg SL Tablet, SublingualIndicati ons:Medication refill Place 1 Tablet under the tongue every 5 minutes as needed. 25 Tablet 4 09/12/2024 documented in this encounter Miscellaneous Notes * Telephone Encounter - Radha Lu RMA - 09/12/2024 12:27 PM EDT Spoke with pharmacist pt is to stop plavix and start on eliquis 5 mg bid * Telephone Encounter - Jeanette Chowdary - 09/12/2024 11:30 AM EDT Pt is currently taking clopidigrel from Dr Hagen primary care, and they received prescription for eliquis, asking if patient is to be taking both medications documented in this encounter Plan of Treatment Upcoming Encounters Date Type Department Care Team (Late st Contact Info) Description 10/31/2024 9:45 AM EDT Appointment [facility] E[facility] [address] [place] [address] Anand Victor MD [address] [facility] [place] [address] 03/19/2025 9:30 AM EST Office Visit [facility] [address] [place] [address] Batsheva Quiroz APRN [address] [place] [address] documented as of this encounter Visit Diagnoses Diagnosis Medication refill Issue of repeat prescriptions documented in this encounter Discontinued Medications Medication Sig Discontinue Reason Start Date End Da te apixaban (ELIQUIS) 5 mg Oral Tablet Take 1 Tablet by mouth 2 times daily. DELETE-Duplicate 09/12/2024 09/12/2024 clopidogreL (PLAVIX) 75 mg Oral Tablet Take 75 mg by mouth once. Alternate therapy 07/26/2023 09/12/2024 nitroGLYCERIN (NITROSTAT) 0.4 mg SL tabletIndications:Medica tion refill Place 1 Tab under the tongue every 5 minutes as needed. Reorder 02/07/2012 09/12/2024 documented as of this encounter Care Teams Spud Grader Relationship Specialty Start Date End Date Jorge Hagen MD PCP - General Family Medicine 04/22/12 documented as of this encounter
--- OUTSIDE RECORDS SUMMARY | 2024-10-15 11:25 | XMS_ITS | Encounter Summary ---
Author Organization [place] [address] Care Team Providers Care Wedding Coordinator Name Role Phone Jorge Hagen MD Primary Care Provider Reason for Visit * Reason Comments Medication Refill Encounter Details Date Type Department Care Team (Late st Contact Info) Description 09/14/2024 Refill [facility] [address] [place] [address] Anand Victor MD [address] [place], [place] [id number] Medication Refill Social History Tobacco Use Types Packs/Day Years [...] Refills Last Filled Start Date End Date metoprolol succinate (TOPROL-XL) 200 mg Oral Tablet Sustained Release 24 hr TAKE 1 TABLET BY MOUTH EVERY DAY DIRECTED FOR 90 DAYS. 90 Tablet 09/16/2024 documented in this encounter Miscellaneous Notes * Telephone Encounter - Pari Stokes CPhT - 09/16/2024 12:57 PM EDT Metoprolol 200 Refill request deferred to the office: Medication refill request directions do not match medication directions in medical record. Please review and correct, if needed, to ensure pt is taking medication correctly. The patient is requesting the 200 mg and the 100 mg is listed as active. documented in this encounter Plan of Treatment Upcoming Encounters Date Type Department Care Team (Late st Contact Info) Description 10/31/2024 9:45 AM EDT Appointment [facility] ECHO [address] [facility] [place] [address] Anand Victor MD [address] [place] [address] 03/19/2025 9:30 AM EST Office Visit [facility] [address] [place] [address] Batsheva Quiroz APRN [address] [place] [address] documented as of this encounter Visit Diagnoses Not on filedocumented in this encounter Care Teams Wedding Coordinator Relationship Specialty Start Date End Date Jorge Hagen MD PCP - General Family Medicine 04/22/12 documented as of this encounter
--- OUTSIDE RECORDS SUMMARY | 2024-10-15 11:25 | XMS_ITS | Encounter Summary ---
Author Organization [place] [address] Care Team Providers Care Director Of Accounts Receivable Name Role Phone Jorge Hagen MD Primary Care Provider Encounter Details Date Type Department Care Team (Latest Contact Info) Description 09/12/2024 Results Follow-Up [facility] [address] [place] [address] Batsheva Quiroz APRN [address] [place] [phone] COMPREHENSIVE METABOLIC PANEL, CBC WITH DIFF, LIPID SCREEN, TSH REFLEX TO FT4 Social History Tobacco Use Types Packs/Day Years [...] Appointment [facility] E[facility] [address] [place] [address] Anand Victor MD [address] [place] [address] 03/19/2025 9:30 AM EST Office Visit [facility] [address] [place] [address] Batsheva Quiroz APRN [address] [place] [address] documented as of this encounter Visit Diagnoses Not on filedocumented in this encounter Care Teams Director Of Accounts Receivable Relationship Specialty Start Date End Date Jorge Hagen MD PCP - General Family Medicine 04/22/12 documented as of this encounter
--- OUTSIDE RECORDS SUMMARY | 2024-10-15 11:25 | XMS_ITS | Continuity of Care Document ---
Author Organization [facility] [address] Address [address] [place] [address] Care Team Providers Care Sternman Name Role Phone Jorge Hagen MD Primary Care Provider [phone] Encounters Date Type Department Care Team Description 09/14/2024 Refill [facility] [address] [place] [address] Anand Victor MD Medication Refill 09/12/2024 Results Follow-Up [facility] [address] [place] [address] Batsheva Quiroz APRN COMPREHENSIVE METABOLIC PANEL, CBC WITH DIFF, LIPID SCREEN, TSH REFLEX TO FT4 09/12/2024 Telephone [facility] [address] [address] Anand Victor MD Medication Question (Pt is currently taking clopidigrel from Dr Hagen, received prescriptions for eliquis, asking if patient is to be taking both?) 09/12/2024 11:05 AM EDT - 09/12/2024 11:59 PM EDT Hospital Encounter FTT MOB DRAW SITE [address] [place] [address] Coronary artery disease involving poarch coronary artery of poarch heart without angina pectoris; Paroxysmal atrial fibrillation (HCC); Pure hypercholesterolemia Discharge Disposition: Home or Self Care 09/12/2024 10:15 AM EDT Office Visit [facility] [address] [place] [address] Anand Victor MD Coronary artery disease involving poarch coronary artery of poarch heart without angina pectoris (Primary Dx); Hx of CABG; Ischemic cardiomyopathy; Essential hypertension; Paroxysmal atrial fibrillation (HCC); Pure hypercholesterolemia 02/23/2024 Telephone [facility] [address] [address] Anand Victor MD Medication Question 02/22/2024 11:00 AM EST Office Visit [facility] [address] [address] Judy Charlton APRN Coronary artery disease involving poarch coronary artery of poarch heart without angina pectoris (Primary Dx); Hx of CABG; Heart failure with mildly reduced ejection fraction (HFmrEF) (HCC); Ischemic cardiomyopathy; Essential hypertension; Dyslipidemia 10/05/2023 2:15 PM EDT Office Visit [facility] H&V [address] [address] Anand Victor MD Paroxysmal atrial fibrillation (HCC) (Primary Dx); Ischemic cardiomyopathy; Essential hypertension; Hx of CABG 04/07/2023 8:26 AM EST - 04/07/2023 11:59 PM EST Hospital Encounter FTT HOLTER MONITOR [address] [place] [address] Anand Victor MD Hx of CABG; Paroxysmal atrial fibrillation (HCC); SOB (shortness of breath) Discharge Disposition: Home or Self Care 04/07/2023 8:26 AM EST - 04/07/2023 11:59 PM EST Hospital Encounter FTT ECHO [address] [place] [address] Anand Victor MD Hx of CABG; Paroxysmal atrial fibrillation (HCC); SOB (shortness of breath) Discharge Disposition: Home or Self Care 03/16/2023 3:00 PM EST Ancillary Procedure [address] [address] Brittney Saleem PA Acute left ankle pain 03/16/2023 2:30 PM EST Ancillary Procedure [address] [address] Brittney Saleem PA Acute left ankle pain 03/16/2023 2:45 PM EST Office Visit [facility] [address] [phone] Brittney Saleem PA Acute left ankle pain (Primary Dx); Localized osteoarthritis of left ankle 03/09/2023 2:00 PM EST Office Visit [facility] [address] [place] [address] Anand Vcitor MD Essential hypertension (Primary Dx); Hx of CABG; Paroxysmal atrial fibrillation (HCC); Ischemic cardiomyopathy; SOB (shortness of breath); Impaired fasting blood sugar; Acute left ankle pain 09/22/2022 2:15 PM EDT Office Visit [facility] [address] [place] [address] Anand Victor MD Paroxysmal atrial fibrillation (HCC) (Primary Dx); Hyperchylomicronemia; Essential hypertension; Hx of CABG 06/15/2022 Telephone [facility] [address] [place] [address] [place] [address] Jens Sagastume MD Other 05/23/2022 Telephone [facility] [address] [place] [address] [place] [address] Jens Sagastume MD Other (/) 05/12/2022 Telephone [facility] [address] [place] [address] Anand Victor MD Appointment Needed (Pt stating would like to get off Eliquis due to bloody stool. Please call) 04/12/2022 Telephone [facility] [place] [address] [place] [id number] Anand Victor MD Reschedule 03/28/2022 2:36 PM EST - 03/31/2022 12:43 PM EST Hospital Encounter EDG 2A ADMISSION UNIT ONE [facility] [place] [address] Yaron Chaidez MD Curi, Kristo, MD Atrial fibrillation with RVR (HCC) (Primary Dx); Chest pain, unspecified type Discharge Disposition: Home or Self Care 03/28/2022 Travel 03/17/2022 Travel 03/17/2022 11:23 AM EST - 03/17/2022 11:59 PM EST Hospital Encounter FTT MOB DRAW SITE [address] [place] [address] Essential hypertension; Paroxysmal atrial fibrillation (HCC) Discharge Disposition: Home or Self Care 03/17/2022 10:00 AM EST Office Visit [facility] [address] [place] [address] Anand Victor MD Paroxysmal atrial fibrillation (HCC) (Primary Dx); Essential hypertension; Hyperchylomicronemia; Hx of CABG 2007; Coronary artery disease involving poarch coronary artery of poarch heart without angina pectoris 09/17/2021 Telephone [facility] [place] [address] [facility] [address] [place] [address] Anand Victor MD Results (Pt returning a call for echo results call [phone]) 09/16/2021 Travel 09/16/2021 9:58 AM EDT - 09/16/2021 11:59 PM EDT Hospital Encounter [facility] ECHO [address] [facility] [address] [place] [address] Anand Victor MD Ischemic chest pain; SOB (shortness of breath) Discharge Disposition: Home or Self Care 07/16/2021 9:00 AM EDT Office Visit [facility] [place] [address] [place] [address] Anand Victor MD Ischemic chest pain (Primary Dx); Coronary artery disease involving poarch coronary artery of poarch heart without angina pectoris; Hyperchylomicronemia; Paroxysmal atrial fibrillation (HCC); SOB (shortness of breath) 12/08/2020 Travel 12/08/2020 2:00 PM EDT Office Visit [facility] [address] [place] [address] Georgie Ramires APRN Coronary artery disease involving poarch coronary artery of poarch heart without angina pectoris (Primary Dx); Ischemic chest pain; Hyperchylomicronemia; Essential hypertension 07/06/2020 Travel 07/06/2020 2:00 PM EDT Office Visit [facility] [place] [address] [place] [address] Anand Victor MD Ischemic chest pain (Primary Dx); Hx of CABG 2007; Essential hypertension 01/20/2020 Travel 01/20/2020 [facility] [address] [place] [address] Anand Victor MD Appointment Needed 11/13/2019 Travel 11/13/2019 10:30 AM EDT [facility] [address] [place] [address] Anand Victor MD Coronary artery disease involving poarch coronary artery of poarch heart without angina pectoris (Primary Dx); Essential hypertension; Paroxysmal atrial fibrillation (HCC); Ischemic chest pain; Pure hypercholesterolemia 08/07/2019 Lab Requisition [facility] LABORATORY [facility] [place] [address] Amaya Ball ARNP Allergic contact dermatitis, unspecified cause 08/03/2019 Travel 08/03/2019 3:32 PM EDT - 08/03/2019 5:46 PM EDT Emergency [facility] [facility] [place] [address] Khadar Strauss MD Brunner, Daniel G, MD Folliculitis (Primary Dx) Discharge Disposition: Home or Self Care 05/23/2019 Telephone [facility] [address] [place] [address] Georgie Thomason APRN Advice Only 05/03/2019 Travel 05/03/2019 10:30 AM EST [facility] [address] [place] [address] Georgie Thomason APRN Paroxysmal atrial fibrillation (HCC) (Primary Dx); Ischemic chest pain; Coronary artery disease involving poarch coronary artery of poarch heart without angina pectoris 04/24/2019 Telephone [facility] [address] [place] [address] Georgie Thomason APRN Other 04/23/2019 5:29 PM EST - 04/23/2019 9:09 PM EST Emergency [facility] [facility] [place] [address] Yu Pan MD Chest pain, unspecified type (Primary Dx) Discharge Disposition: Home or Self Care 03/07/2019 Telephone [facility] [address] [address] Anand Victor MD Reschedule 09/12/2018 9:00 AM EDT [address] [facility] [address] Georgie Thomason APRN Paroxysmal atrial fibrillation (HCC) (Primary Dx); Essential hypertension; Hyperchylomicronemia; Coronary artery disease involving poarch coronary artery of poarch heart without angina pectoris 08/20/2018 [place] [address] Georgie Thomason APRN Hospital Follow Up 08/16/2018 6:09 PM EDT - 08/17/2018 6:24 PM EDT Hospital Encounter EDG 6D TCU [facility] [address] [place], [facility] Khadar Lui MD Watson, James Brandon, Chest pain in adult (Primary Dx) Discharge Disposition: Home or Self Care 08/16/2018 Travel 05/17/2018 2:00 PM EDT Office Visit [facility] H&[address] [address] Anand Victor MD Chest pain due to myocardial ischemia, unspecified ischemic chest pain type (Primary Dx); Paroxysmal atrial fibrillation (HCC); Hx of CABG 2007; Essential hypertension; Dyspnea, unspecified type; Noncompliance; Pure hypercholesterolemia; Acute diastolic heart failure (HCC); Ischemic cardiomyopathy 10/06/2016 Telephone [facility] [address] [address] Anand Victor MD Other 10/04/2016 2:33 PM EDT - 10/05/2016 9:19 AM EDT Hospital Encounter EDG CLIN DEC UNIT [facility] [address] 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 [place] [address] Mandeep Beltran MD LEFT VENTRICULOGRAM 02/20/2015 11:00 AM EST Office Visit [facility] [place] [address] [place] [address] Anand Victor MD Cardiomyopathy (HCC) (Primary Dx); Chronic chest pain; Essential hypertension; Hyperlipidemia; Hx of CABG 2007; Obstructive sleep apnea 08/27/2014 Abstract [facility] [address] [place] [address] Anand Victor MD 08/26/2014 11:00 AM EDT Office Visit [facility] [place] [address] [place] [address] Leah Juan APRN Chronic chest pain (Primary Dx); Cardiomyopathy (HCC); Essential hypertension; Hyperlipidemia; ASHD (arteriosclerotic heart disease) 04/15/2014 Refill [facility] [address] [address] [place] [address] Anand Victor MD Medication Refill 01/10/2014 10:45 AM EST Office Visit [facility] H[facility] [phone] Anand Victor MD Hx of CABG 2008 (Primary Dx); Atherosclerotic heart disease; Dyspnea; Cardiomyopathy (HCC); Hypertension; Hyperlipidemia; Chronic chest pain; Obstructive sleep apnea 09/05/[address] [address] Leah Juan APRN Visit Follow Up 08/28/2013 2:30 PM EDT Office Visit [address] [address] Leah Juan APRN Chronic chest pain (Primary Dx); Dyspnea; Atherosclerotic heart disease; Cardiomyopathy (HCC); Hypertension; Hyperlipidemia 04/19/2013 2:00 PM EST Office Visit [address] [address] Leah Juan APRN Atherosclerotic heart disease (Primary Dx); Hypertension; Dyspnea; Hyperlipidemia 04/05/2013 11:26 AM EST - 04/05/2013 11:59 PM EST Hospital Encounter [facility] STRESS [address] [place] [address] Kofi Azevedo MD Atherosclerotic heart disease; Hypertension; Dyspnea Discharge Disposition: Home or Self Care 04/05/2013 11:26 AM EST - 04/05/2013 11:59 PM EST Hospital Encounter [facility] N[facility] [address] [place] [address] Kofi Azevedo MD Atherosclerotic heart disease; Hypertension; Dyspnea Discharge Disposition: Home or Self Care 04/01/[address] [facility]&[address] [address] Kofi Azevedo MD Appointment Needed 04/01/2013 Orders Only [address] [address] Kofi Azevedo MD Atherosclerotic heart disease (Primary Dx); Hypertension; Dyspnea 03/29/2013 3:40 PM EST - 03/30/2013 4:40 PM EST Hospital Encounter EDG 6D TCU [facility] [place] [address] Christian Franco MD Courtade, Daniel J, MD SOB (shortness of breath) (Primary Dx); CHF (congestive heart failure) (HCC); Atherosclerotic heart disease; Dyspnea; Hyperlipidemia; Hypertension; Obstructive sleep apnea; Congestive heart failure, unspecified (HCC); Shortness of breath Discharge Disposition: Home or Self Care 04/25/2012 Abstract [facility] [address] [address] Anand Victor MD 04/24/[address] [facility]V [address] [address] Anand Victor MD Anticoagulation 04/24/2012 Telephone [facility] [address] [address] Anand Victor MD Anticoagulation 04/24/2012 7:41 AM EST - 04/24/2012 11:59 PM EST Hospital Encounter Madeleine EKG [facility] [place] [address] Anand Victor MD Chest pain, unspecified Discharge Disposition: Home or Self Care 04/23/2012 7:25 AM EST - 04/23/2012 8:25 AM EST Surgery Anand Victor MD CANCELED PROCEDURE 04/22/2012 9:02 PM EST - 04/23/2012 1:57 PM EST Hospital Encounter EDG 6D TCU [facility] [place] [address] Darrell Boss MD Houlihan, Paul Gregory, MD Chest pain (Primary Dx); Medication refill; CAD (coronary artery disease); Dyslipidemia; Atrial fibrillation (HCC); HTN (hypertension); Obesity Discharge Disposition: Home or Self Care 02/07/2012 Orders Only [facility] [address] [address] Sophie Mcneil MA Medication refill (Primary Dx) 02/07/2012 1:40 PM EST Office Visit [address] [address] Anand Victor MD Atherosclerotic heart disease; Hypertension; Hyperlipidemia; Obstructive sleep apnea; SOB (shortness of breath) 10/07/2011 Orders Only [address] [address] Sophie Mcneil MA Medication refill (Primary Dx) 10/07/[address] [address] Anand Victor MD Medication Refill 08/19/2011 8:45 AM EDT Office Visit [address] [address] Anand Victor MD Atherosclerotic heart disease; Hypertension; Hyperlipidemia; Obstructive sleep apnea 06/13/[address] [address] Anand Victor MD Medication Reaction 04/15/2011 10:30 AM EST Office Visit [address] [address] Anand Victor MD Atherosclerotic heart disease; Hypertension; Hyperlipidemia; Dyspnea; Hx of CABG 04/12/[address] [address] Sophie Mcneil MA Atherosclerotic heart disease; Hypertension; Hyperlipidemia 09/25/2007 10:54 AM EDT - 09/25/2007 11:59 PM EDT Hospital Encounter [facility] RADIOLOGY EDG Anand Victor MD 08/15/2007 12:53 AM EDT - 08/20/2007 12:14 PM EDT Hospital Encounter HST 5D Lee Bustos MD 08/05/2007 10:15 PM EDT - 08/09/2007 8:14 PM EDT Hospital Encounter HST 5D Anand Victor MD Courtade, Daniel J, MD 12/04/2001 1:40 AM EDT - 12/05/2001 7:45 PM EDT Hospital Encounter HST TCB Kofi Azevedo MD Allergies Active Allergy Reactions Criticality Noted Date Comments Amlodipine Rash Low 08/28/2013 Red Dye Rash,Other (See Comments) High 08/03/2019 Atropine Hives,Other (See Comments),Rash High 04/06 Medications losartan (COZAAR) 25 mg tablet Take 25 mg by mouth daily. Active calcium carbonate (TUMS) 200 mg calcium (500 mg) chewable tablet Take 1 Tab by mouth as needed for Heartburn. Active vitamin E 400 unit Oral Capsule Take 800 Units by mouth daily. Active rosuvastatin (CRESTOR) 40 mg Oral Tablet Take 40 mg by mouth daily. Active isosorbide mononitrate (IMDUR) 30 mg Oral Tablet Sustained Release 24 hr Take 30 mg by mouth every morning. Active fUROsemide (LASIX) 80 mg Oral Tablet Take 1 Tab by mouth 2 times daily. 9 Active potassium chloride (K-DUR) 10 mEq Oral Tablet Sustained Release Take 1 Tab by mouth 2 times daily. 9 Active fluconazole (DIFLUCAN) 200 mg Oral Tablet Take 200 mg by mouth once a week. Active triamcinolone (KENALOG) 0.1 % Top Cream Apply topically daily as needed. 1 Active apixaban (ELIQUIS) 5 mg Oral TabletIndications :Paroxysmal atrial fibrillation (HCC) Take 1 Tablet by mouth 2 times daily. 60 Tablet 5 3 Active traMADoL (ULTRAM) 50 mg Oral Tablet Take 50 mg by mouth 3 times daily as needed for Pain. Active aspirin 81 mg Oral Tablet, Chewable Take 1 Tablet by mouth daily. 30 Tablet 3 Active metoprolol succinate ER (TOPROL-XL) 100 mg Oral Tablet Sustained Release 24 hr Take 1 Tablet by mouth daily. 30 Tablet 11 3 Active albuterol (PROVENTIL HFA;VENTOLIN HFA) 90 mcg/actuation Inhl HFA Aerosol Inhaler Inhale 2 Puffs into the lungs every 6 hours as needed for Shortness of Breath. Active nitroGLYCERIN (NITROSTAT) 0.4 mg SL Tablet, SublingualIndicat ions:Medication refill Place 1 Tablet under the tongue every 5 minutes as needed. 25 Tablet 4 5 Active metoprolol succinate (TOPROL-XL) 200 mg Oral Tablet Sustained Release 24 hr TAKE 1 TABLET BY MOUTH EVERY DAY DIRECTED FOR 90 DAYS. 90 Tablet 5 Active Active Problems Problem Noted Date Diagnosed Date Acute left ankle pain 03/16/2023 Localized osteoarthritis of left ankle 4 Atrial fibrillation with RVR 03/30/2022 Atrial flutter with rapid ventricular response 0 03/28/2022 Chronic chest pain 08/16/2018 Acute chest pain 10/05/2016 Noncompliance 10/05/2016 Ischemic chest pain 04/06/2016 Paroxysmal atrial fibrillation 04/06/2016 Dyspnea 03/30/2013 Obstructive sleep apnea 08/17/2011 Overview (08/17/2011): He has not been tolerant of CPAP Coronary artery disease invo lving poarch coronary artery of poarch heart without angina pectoris 04/12/2011 Overview (04/15/2011): Status post bypass surgery in 2007. He has had preserved LV systolic function on a 2-D Echo. LOCKHART to LAD, SVG to SVG to OM/Dx. Essential hypertension 04/12/2011 Overview (04/12/2011): Well controlled Hyperlipidemia 04/12/2011 Hx of CABG 2007 Overview (01/10/2014): CABG 2007 (x4): LOCKHART to LAD, SVG to OM, SVG to Dg Immunizations Immunization Administration Dates Next Due Influenza Patient Reported 04/04/2016,01/04/2013 Family History Medical History Relation Name Comments Heart Attack Father High Blood Pressure Father High Cholesterol Father Heart Attack Maternal Grandfather Heart Attack Maternal Grandmother Heart Attack Mother Heart Attack Paternal Grandmother Relation Name Status Comments Father Maternal Grandfather Maternal Grandmother Mother Paternal Grandmother Social History Smoking Status as of 10/15/2024 Tobacco Use Types Packs/Day Years Used Date Smoking Tobacco: Never Assessed Hunger Vital Sign Answer Date Recorded Within [...] on file Sexual Orientation Not on file Last Filed Vital Signs Vital Sign Reading Time Taken Comments Blood Pressure 124/60 09/12/2024 10:12 AM EDT Pulse 64 09/12/2024 10:12 AM EDT Temperature 37.2 C (99 F) 03/31/2022 9:00 AM EST Respiratory Rate 20 03/31/2022 9:00 AM EST Oxygen Saturation 98% 09/12/2024 10: 12 AM EDT Inhaled Oxygen Concentration - - Weight 107.7 kg (237 lb 6.4 oz) 025 10:12 AM EDT Height 182.9 cm (6') 09/12/2024 10:12 AM EDT Body Mass Index 32.2 09/12/2024 10:12 AM EDT Plan of Treatment Upcoming Encounters Date Type Department Care Team (Late st Contact Info) Description 10/31/2024 9:45 AM EDT Appointment [facility]TT ECHO [address] [place] [address] Anand Victor MD [address] [place] [address] 03/19/2025 9:30 AM EST Office Visit [facility] NPTFTT [address] [place] [address] Batsheva Quiroz APRN [address] [place] [address] Procedures Procedure Name Priority Date/Time Associated Diagnosis Comments TSH REFLEX TO FT4 Routine 09/12/2024 11:10 AM EDT Coronary artery disease involving poarch coronary artery of poarch heart without angina pectoris Paroxysmal atrial fibrillation (HCC) Pure hypercholesterolemia LIPID SCREEN Routine 09/12/2024 11:10 AM EDT Coronary artery disease involving poarch coronary artery of poarch heart without angina pectoris Paroxysmal atrial fibrillation (HCC) Pure hypercholesterolemia CBC WITH DIFF Routine 09/12/2024 11:10 AM EDT Coronary artery disease involving poarch coronary artery of poarch heart without angina pectoris Paroxysmal atrial fibrillation (HCC) Pure hypercholesterolemia COMPREHENSIVE METABOLIC PANEL Routine 09/12/2024 11:10 AM EDT Coronary artery disease involving poarch coronary artery of poarch heart without angina pectoris Paroxysmal atrial fibrillation (HCC) Pure hypercholesterolemia HM HOLTER MONITOR RECORDING AND ANALYSIS Routine 04/07/2023 9:23 AM EST Hx of CABG Paroxysmal atrial fibrillation (HCC) SOB (shortness of breath) EC ECHOCARDIOGRAM COMPLETE W DOPPLER AND COLOR FLOW MAPPING Routine 04/07/2023 9:15 AM EST Hx of CABG Paroxysmal atrial fibrillation (HCC) SOB (shortness of breath) OH ARTHROCENTESIS ASPIR&/INJ INTERM JT/BURS W/O US Routine 03/16/2023 2:45 PM EST Localized osteoarthritis of left ankle XR FOOT LEFT AP AND LATERAL STANDING Routine 03/16/2023 2:40 PM EST Acute left ankle pain XR ANKLE LEFT AP LATERAL AND OBLIQUE INCLUDING STANDING Routine 03/16/2023 2:40 PM EST Acute left ankle pain POCT EKG Routine 09/22/2022 2:55 PM EDT Paroxysmal atrial fibrillation (HCC) Hyperchylomicronemia SCANNED EKG 04/01/2022 12:05 PM EST ECG AND WAVEFORMS - TELEMETRY Routine 03/31/2022 7:00 AM EST PT / INR Routine 03/31/2022 5:54 AM EST POTASSIUM LEVEL Routine 03/31/2022 5:54 AM EST MAGNESIUM LEVEL Routine 03/31/2022 5:54 AM EST DIGOXIN LEVEL Routine 03/31/2022 5:54 AM EST ECG AND WAVEFORMS - TELEMETRY Routine 03/30/2022 7:02 PM EST ECG AND WAVEFORMS - TELEMETRY Routine 03/30/2022 9:30 AM EST ADMIT Routine 03/30/2022 8:31 AM EST ECG AND WAVEFORMS - TELEMETRY Routine 03/30/2022 6:50 AM EST CBC WITH DIFF Routine 03/29/2022 12:46 PM EST BASIC METABOLIC PANEL Routine 03/29/2022 12:46 PM EST PHOSPHORUS LEVEL Routine 03/29/2022 12:46 PM EST MAGNESIUM LEVEL Routine 03/29/2022 12:46 PM EST THYROID STIMULATING HORMONE Routine 03/29/2022 12:46 PM EST IP CONSULT TO CARDIOLOGY Routine 03/29/2022 12:34 PM EST Procedure Note - Fred Garza MD - 03/30/2022 9:21 AM ESTThis note is in progress. Images from the original note were not included. PATIENT: Alice John, :1955, , CSN:[id number] PCP: Jorge Hagen MD Date:03/30/2022 at 10:37 PM I would like to thank Jose Francisco Christiansen MD for requesting me to see your Rosemarie John in consultation. Chief Complaint Patient presents with Atrial Fibrillation Pt states he has been in and out of afib for a week, recent medicationchange HPI: Patient is a 66 y.o. male with a history of coronary artery diseasestatus post CABG, paroxysmal atrial fibrillation/atrial flutter, COPD,chronic alcohol use, ischemic cardiomyopathy, hypertension, suspectedsleep apnea presents with complaints of irregular heart rate. Patient wasrecently in the office for routine follow-up. The patient was noted to bein atrial flutter. Heart rates were in the low 110s. Patient was startedon metoprolol and anticoagulated with Eliquis. The patient had previouslybeen on Coumadin but has been noncompliant with therapy. Patient reportsthat since that time he has had increasing palpitations shortness ofbreath and feeling like his head was going to explode. [facility] and was found to be in atrial flutter with rapid ventricularresponse. The patient was quickly rate controlled. It is not clear howsymptomatic the patient was before knowing his diagnosis. The patient cantell me his heart rate variability but not necessarily his symptomaticvariability. Patient states that he was not going to be able to wait foroffice follow-up. Social history:*Former smoker. Daily alcohol retired Family history: Both parents had heart disease* CARD.SURG: Prior CABG ROS Review of Systems Constitutional: Positive for activity change and fatigue. Negative forchills, diaphoresis and fever. HENT: Negative for dental problem, trouble swallowing and voice change. Eyes: Negative for visual disturbance. Respiratory: Positive for cough and shortness of breath. Negative forchest tightness and wheezing. Cardiovascular: Negative for chest pain, palpitations and leg swelling. Gastrointestinal: Negative for abdominal pain, blood in stool and nausea. Endocrine: Negative for polydipsia and polyuria. Genitourinary: Negative for difficulty urinating. Musculoskeletal: Negative for arthralgias and myalgias. Skin: Negative for color change and pallor. Neurological: Positive for weakness and headaches. Negative for dizziness,syncope, light-headedness and numbness. Hematological: Does not bruise/bleed easily. Psychiatric/Behavioral: Negative for behavioral problems and sleepdisturbance. The patient is not nervous/anxious. All other review of systems was negative or noncontributory Physical Exam Vital Blood Pressure: 133/92 Temp: 97.5 F (36.4 C) Signs Pulse: 65 Resp: (!) 24 Vitals: 03/30/22 0811 03/30/22 1243 03/30/22 1541 03/30/22 1930 BP: 148/78 107/79 119/81 133/92 BP Location: Right arm Right arm Right arm Left arm Patient Position: Semi Fowlers Semi Fowlers Semi Fowlers Semi Fowlers Pulse: 98 65 63 65 Resp: 16 16 16 (!) 24 Temp: 98.1 F (36.7 C) 98 F (36.7 C) 98.1 F (36.7 C) 97.5 F (36.4 C) TempSrc: Oral Oral Oral Oral SpO2: 93% 96% 95% 96% Weight: Height: Physical Exam Constitutional: General: He is not in acute distress. Appearance: Normal appearance. He is obese. He is not ill-appearing. HENT: Head: Normocephalic and atraumatic. Eyes: General: No scleral icterus. Extraocular Movements: Extraocular movements intact. Pupils: Pupils are equal, round, and reactive to light. Cardiovascular: Rate and Rhythm: Normal rate. Rhythm irregularly irregular. Pulses: Normal pulses. Radial pulses are 2+ on the right side. Heart sounds: Heart sounds are distant. No murmur heard. Pulmonary: Effort: Pulmonary effort is normal. Prolonged expiration present. Norespiratory distress. Breath sounds: No wheezing, rhonchi or rales. Abdominal: General: Abdomen is flat. There is no distension. Palpations: Abdomen is soft. Musculoskeletal: General: No swelling, deformity or signs of injury. Cervical back: Normal range of motion and neck supple. Right lower leg: No edema. Left lower leg: No edema. Skin: General: Skin is warm and dry. Coloration: Skin is not jaundiced. Nails: There is clubbing. Neurological: General: No focal deficit present. Mental Status: He is alert and oriented to person, place, and time. Psychiatric: Attention and Perception: Attention normal. Mood and Affect: Mood normal. Behavior: Behavior normal. Thought Content: Thought content normal. Judgment: Judgment normal. Vitals: Vitals: 03/30/22 0811 03/30/22 1243 03/30/22 1541 03/30/22 1930 BP: 148/78 107/79 119/81 133/92 BP Location: Right arm Right arm Right arm Left arm Patient Position: Semi Fowlers Semi Fowlers Semi Fowlers Semi Fowlers Pulse: 98 65 63 65 Resp: 16 16 16 (!) 24 Temp: 98.1 F (36.7 C) 98 F (36.7 C) 98.1 F (36.7 C) 97.5 F (36.4 C) TempSrc: Oral Oral Oral Oral SpO2: 93% 96% 95% 96% Weight: Height: 24HR INTAKE/OUTPUT: Intake/Output Summary (Last 24 hours) at 03/30/20222236 Last data filed at 03/30/20221945 Gross per 24 hour Intake 240 ml Output -- Net 240 ml Lab Results Component Value Date WBC 6.7 03/29/2022 HGB 17.3 03/29/2022 HCT 48.5 03/29/2022 MCV 94.2 03/29/2022 PLT 167 03/29/2022 Lab Results Component Value Date CREATININE 0.98 03/29/2022 BUN 13 03/29/2022 NA 133 (L) 03/29/2022 K 4.4 03/29/2022 CL 98 03/29/2022 CO2 25 03/29/2022 @LASTCHEM@ Lab Results Component Value Date CHOLESTEROL 161 08/17/2018 CHOLESTEROL 257 (H) 04/06/2016 Lab Results Component Value Date HDL 32 (L) 08/17/2018 HDL 35 (L) 04/06/2016 HDL 39 07/19/2014 Lab Results Component Value Date LDLCALC 92 08/17/2018 LDLCALC 182 (H) 04/06/2016 LDLCALC 99 07/19/2014 Lab Results Component Value Date TRIG 187 (H) 08/17/2018 TRIG 199 (H) 04/06/2016 No results found for: CHOLHDL Scheduled Meds: apixaban 5 mg Oral BID aspirin 162 mg Oral Daily multivitamin with folic acid 1 Tablet Oral Daily And folic acid 1 mg Oral Daily And thiamine 100 mg Oral Daily isosorbide mononitrate 30 mg Oral QAM [START ON 03/31/2022] losartan 25 mg Oral Daily metoprolol succinate 100 mg Oral Daily rosuvastatin 40 mg Oral Daily Continuous Infusions: Past Medical History: Diagnosis Date A-fib ([facility]) Angina pectoris ([facility]) Atherosclerotic heart disease 04/12/2011 NUC 03/2013- EF41% abnormal LV perfusion, mildly dil LV with moddiminished systolic function CAD (coronary artery disease) Cataracts, bilateral CHF (congestive heart failure) ([facility]) DDD (degenerative disc disease), lumbar Headache Hyperlipidemia 04/12/2011 Hypertension 04/12/2011 ECHO 03/2013- EF 40%, LV mild conc hypertrophy, RV mild dil, MV mildmitral annular calc, mild thick calc, mild mitral regurg, RVSP normal, PVmild regurg [place] (myocardial infarction) ([facility]) Obstructive sleep apnea 08/17/2011 Sleep apnea Past Surgical History: Procedure Laterality Date CARDIAC CATHETERIZATION 08/2007 severe calcific 3 vessel coronary artery disease, mildly impaired LVsystolic function with EF of 45% mild hypokinesis distal anterior wall andmoderate hypokinesis of the distal inferior wall CARDIAC SURGERY TONSILLECTOMY Family History Problem Relation Age of Onset Heart Attack Mother 54 Heart Attack Father 67 High Blood Pressure Father High Cholesterol Father Heart Attack Maternal Grandmother Heart Attack Maternal Grandfather Heart Attack Paternal Grandmother Social History Tobacco Use Smoking status: Former Packs/day: 3.00 Years: 27.00 Pack years: 81.00 Types: Cigarettes Start date: 03/06/1970 Quit date: 12/29/1997 Years since quittin.2 Smokeless tobacco: Former Quit date: 12/29/1997 Substance Use Topics Alcohol use: Yes Alcohol/week: 2.4 - 3.6 oz Types: 4 - 6 Cans of beer per week Comment: 4-6 /day. BEER No current facility-administered medications on file prior to encounter. Current Outpatient Medications on File Prior to Encounter Medication Sig Dispense Refill apixaban (ELIQUIS) 5 mg Oral Tablet Take 1 Tablet by mouth 2 timesdaily. 60 Tablet 5 aspirin 81 mg tablet Take 162 mg by mouth daily. calcium carbonate (TUMS) 200 mg calcium (500 mg) chewable tablet Take 1Tab by mouth as needed for Heartburn. fluconazole (DIFLUCAN) 200 mg Oral Tablet Take 200 mg by mouth once aweek. ibuprofen (ADVIL;MOTRIN) 200 mg Oral Tablet Take 600 mg by mouth every 6hours as needed for Pain. isosorbide mononitrate (IMDUR) 30 mg Oral Tablet Sustained Release 24 hrTake 30 mg by mouth every morning. losartan (COZAAR) 25 mg tablet Take 25 mg by mouth daily. metoprolol succinate (TOPROL-XL) 50 mg Oral Tablet Sustained Release 24hr Take 1 Tablet by mouth daily. 30 Tablet 11 nitroGLYCERIN (NITROSTAT) 0.[address] 1 Tab under the tongueevery 5 minutes as needed. 25 Tab 4 rosuvastatin (CRESTOR) 40 mg Oral Tablet Take 40 mg by mouth daily. traMADoL (ULTRAM) 50 mg Oral Tablet Take 50 mg by mouth 3 times daily asneeded for Pain. triamcinolone (KENALOG) 0.1 % Top Cream Apply topically daily asneeded. vitamin E 400 unit Oral Capsule Take 800 Units by mouth daily. fUROsemide (LASIX) 80 mg Oral Tablet Take 1 Tab by mouth 2 times daily.(Patient not taking: Reported on 03/29/2022) potassium chloride (K-DUR) 10 mEq Oral Tablet Sustained Release Take 1Tab by mouth 2 times daily. (Patient not taking: Reported on 03/29/2022) Current Facility-Administered Medications Medication Dose Route Frequency Provider Last Rate Last Admin acetaminophen (TYLENOL) tablet 650 mg 650 mg Oral Q4H PRN Jose Francisco Christiansen MD aluminum & magnesium hydroxide-simethicone 200-200-20 mg/5 mL [id number] mL 30 mL Oral Q2H PRN Marian Ramos NP apixaban (ELIQUIS) tablet 5 mg 5 mg Oral BID Marian Ramos NP 5mg at 03/30/222008 aspirin tablet 162 mg 162 mg Oral Daily Jose Francisco Christiansen MD 162 mg at03/30/22 1026 multivitamin with folic acid (THERAGRAN) 400 mcg tablet 1 Tablet 1Tablet Oral Daily Marian Ramos NP 1 Tablet at 03/30/22 1026 And folic acid (FOLVITE) tablet 1 mg 1 mg Oral Daily Marian Ramos NP1 mg at 03/30/22 1026 And thiamine tablet 100 mg 100 mg Oral Daily Marian Ramos NP 100 mgat 03/30/22 1026 hydrOXYzine (VISTARIL) capsule 25 mg 25 mg Oral Q6H PRN Ana Rosa Ramos NP isosorbide mononitrate (IMDUR) CR tablet 30 mg 30 mg Oral QAM Jose Francisco Christiansen MD 30 mg at 03/30/22 1027 LORazepam (ATIVAN) tablet 1 mg 1 mg Oral Q1H PRN Marian Ramos NP Or LORazepam (ATIVAN) 1 mg in sodium chloride 0.9% injection 1 mgIntravenous Q1H PRN Marian Ramos NP Or LORazepam (ATIVAN) injection 1 mg 1 mg Intramuscular Q1H PRN Marian Ramos NP LORazepam (ATIVAN) tablet 2 mg 2 mg Oral Q1H PRN Marian Ramos NP Or LORazepam (ATIVAN) 2 mg in sodium chloride 0.9% injection 2 mgIntravenous Q1H PRN Marian Ramos NP Or LORazepam (ATIVAN) injection 2 mg 2 mg Intramuscular Q1H PRN Marian Ramos NP LORazepam (ATIVAN) tablet 4 mg 4 mg Oral Q1H PRN Marian Ramos NP Or LORazepam (ATIVAN) 4 mg in sodium chloride 0.9% injection 4 mgIntravenous Q1H PRN Marian Ramos NP Or LORazepam (ATIVAN) injection 4 mg 4 mg Intramuscular Q1H PRN Marian Ramos NP [START ON 03/31/2022] losartan (COZAAR) tablet 25 mg 25 mg Oral DailyDoug Kenney APRN metoprolol succinate ER (TOPROL-XL) XL tablet 100 mg 100 mg Oral DailySaul Lee MD 100 mg at 03/30/22 1146 polyethylene glycol (GLYCOLAX, MIRALAX) packet 17 g 17 g Oral BID Jose Francisco Mccray MD rosuvastatin (CRESTOR) tablet 40 mg 40 mg Oral Daily Marian Ramos NP 40 mg at 03/30/22 1027 traMADoL (ULTRAM) tablet 50 mg 50 mg Oral TID PRN Jose Francisco Christiansen MD traZODone (DESYREL) tablet 50 mg 50 mg Oral Nightly PRN Ana Rosa Ramos NP Allergies Allergen Reactions Amlodipine Rash Red Dye Rash Assessment and Plan Paroxysmal atrial flutter with rapid ventricular response - Admitted to the hospital with symptomatic tachycardia heart rate stillvariable - CHADS2 score at least 3 for hypertension, vascular disease, age - On metoprolol 100 mg XL daily - Eliquis 5 mg twice daily for anticoagulation - Will attempt to perform BRI guided cardioversion tomorrow iflogistically possible otherwise may see how he does with rate control Coronary artery disease in poarch vessel without angina - Prior bypass - No anginal complaints - Continue Imdur and metoprolol for antianginals - Continue aspirin - Continue statin - Consider reducing aspirin down to 81 mg Alcohol abuse - Probably plays some role in his atrial arrhythmias Thank you for the cardiology consult and allowing me to participate withthe care of Alice John. Signed: Fred Garza MD 03/30/2022 10:37 PM This chart was completed using voice recognition technology and [employer] unintended errors Heart & Vascular Consult Note PATIENT: Alice John PCP: Jorge Hagen MD Primary Sewing Demonstrator: Dr. Victor Reason for consult: a-fib w RVR History provided by: pt, EMR History limited by: nothing HPI: 66 yo past smoker male hx: CAD s/p CABG 1997 Angio 2017 w Patent LOCKHART>LAD, SVG> PDA, SVG OM HTN HLD Recent a-fib- started Eliquis 03-17-22 ICM w EF 45% ROSANGELA ETOH- 3-4 beers / day No drugs Adm for palpit, fatigue, SOB. Was d/x's w a-fib on 03-17-22 and toprol and Eliquis started In ED found to have elev HR and dilt IV x1 w improvement. This AM w elev HR. Still symptomatic. Trop negx2 BNP 540 EKG a-flut w RVR CXR neg Past Medical History Past Medical History: Diagnosis Date A-fib ([facility]) Angina pectoris ([facility]) Atherosclerotic heart disease 04/12/2011 NUC 03/2013- EF41% abnormal LV perfusion, mildly dil LV with moddiminished systolic function CAD (coronary artery disease) Cataracts, bilateral CHF (congestive heart failure) ([facility]) DDD (degenerative disc disease), lumbar Headache Hyperlipidemia 04/12/2011 Hypertension 04/12/2011 ECHO 03/2013- EF 40%, LV mild conc hypertrophy, RV mild dil, MV mildmitral annular calc, mild thick calc, mild mitral regurg, RVSP normal, PVmild regurg [place] (myocardial infarction) ([facility]) Obstructive sleep apnea 08/17/2011 Sleep apnea Medication apixaban 5 mg Oral BID aspirin 162 mg Oral Daily multivitamin with folic acid 1 Tablet Oral Daily And folic acid 1 mg Oral Daily And thiamine 100 mg Oral Daily isosorbide mononitrate 30 mg Oral QAM [START ON 03/31/2022] losartan 25 mg Oral Daily [START ON 03/31/2022] metoprolol succinate 100 mg Oral Daily rosuvastatin 40 mg Oral Daily acetaminophen, aluminum & magnesium hydroxide-simethicone, hydrOXYzine,LORazepam OR LORazepam OR LORazepam, LORazepam OR LORazepamOR LORazepam, LORazepam OR LORazepam OR LORazepam,polyethylene glycol, sodium chloride 0.9%, sodium chloride 0.9%, traMADoL,traZODone Past Surgical History Past Surgical History: Procedure Laterality Date CARDIAC CATHETERIZATION 08/2007 severe calcific 3 vessel coronary artery disease, mildly impaired LVsystolic function with EF of 45% mild hypokinesis distal anterior wall andmoderate hypokinesis of the distal inferior wall CARDIAC SURGERY TONSILLECTOMY Allergy Allergies Allergen Reactions Amlodipine Rash Red Dye Rash Family History Family History Problem Relation Age of Onset Heart Attack Mother 54 Heart Attack Father 67 High Blood Pressure Father High Cholesterol Father Heart Attack Maternal Grandmother Heart Attack Maternal Grandfather Heart Attack Paternal Grandmother Social History Social History Tobacco Use Smoking status: Former Packs/day: 3.00 Years: 27.00 Pack years: 81.00 Types: Cigarettes Start date: 03/06/1970 Quit date: 12/29/1997 Years since quittin.2 Smokeless tobacco: Former Quit date: 12/29/1997 Substance Use Topics Alcohol use: Yes Alcohol/week: 2.4 - 3.6 oz Types: 4 - 6 Cans of beer per week Comment: 4-6 /day. BEER Review of Systems No headache, no LOC, no fever, no chills, no cough, no nausea, novomiting, no diarrhea, no burning micturation, no seizures, all othersymptoms negative and reviewed by me. Objective: Telemetry: a-flut 03/30/2022 Last BP: BP: 148/78 Last pulse: Pulse: 98 Last resp: Resp: 16 Last temp: Temp: 98.1 F (36.7 C) Last SpO2: SpO2: 93 % Exam: Pt in no distress. Lymph/Neck supple, no enlarged nodes or masses CVS - S1, S2 IrRRR, no edema RS - No rales, no rhonchi GI/Abd - soft, NT, +BS Neuro- Alert and oriented Psych- Mood and affect appropriate Skin warm, dry, no rashes Diagnostic tests Pertinent laboratory test have been reviewed The most recent cardiovascular imaging studies availabe in [facility] EMR werereviewed at time of consultation Assessment & Plan Active Hospital Problems Diagnosis *Atrial flutter with rapid ventricular response (HCC) Atrial fibrillation with RVR (HCC) Hx of CABG 2007 Obstructive sleep apnea Coronary artery disease involving poarch coronary artery of poarch heartwithout angina pectoris Essential hypertension Hyperlipidemia 1. A-flut w RVR -Dx'd 03-17-22 and toprol and Eliquis started -HR elev on arrival -CHADSVASC 3 2. CAD S/p CABG 2017 -ASA, BB, Imdur, ARB 3. ICM w EF 40% -BB, ARB 4. ETOH use -advised to stop 5. Hx ROSANGELA- not Tx -advised to get Tx 6. HTN -BB, ARB Plan: Increase BB for better Hr control Cont Eliquis. Was started on Eliquis 13 days ago. Avoid cardioversionfor at least another week recheck echo Further input from Dr. Damari Garza Thank you for the consult. We will follow with you. Doug Kenney APRN CHEMICAL DEP COUNSELOR CONSULT Routine 03/28/2022 7:54 PM EST TROPONIN-T HIGH SENSITIVITY 2HR Timed 03/28/2022 7:05 PM EST ADMIT STAT 03/28/2022 6:48 PM EST XR CHEST AP PORTABLE SAMSON 03/28/2022 3:16 PM EST NT PROBNP STAT 03/28/2022 3:11 PM EST PT / INR STAT 03/28/2022 3:11 PM EST TROPONIN-T HIGH SENSITIVITY BASELINE W/ REFLEX STAT 03/28/2022 3:11 PM EST COMPREHENSIVE METABOLIC PANEL STAT 03/28/2022 3:11 PM EST CBC WITH DIFF STAT 03/28/2022 3:11 PM EST SALINE LOCK IV STAT 03/28/2022 2:49 PM EST EK EKG 12 LEAD STAT 03/28/2022 2:05 PM EST MAGNESIUM LEVEL Routine 03/17/2022 11:23 AM EST Paroxysmal atrial fibrillation (HCC) TSH REFLEX TO FT4 Routine 03/17/2022 11:23 AM EST Essential hypertension CBC Routine 03/17/2022 11:23 AM EST Essential hypertension COMPREHENSIVE METABOLIC PANEL Routine 03/17/2022 11:23 AM EST Essential hypertension POCT EKG Routine 03/17/2022 10:15 AM EST Paroxysmal atrial fibrillation (HCC) EC ECHOCARDIOGRAM COMPLETE W DOPPLER AND COLOR FLOW MAPPING Routine 09/16/2021 1:05 PM EDT Ischemic chest pain SOB (shortness of breath) WOUND CULTURE (STAIN INCLUDED) Routine 08/07/2019 12:00 PM EDT Allergic contact dermatitis, unspecified cause SCANNED EKG 04/24/2019 3:33 PM EST TROPONIN-T HIGH SENSITIVITY BASELINE W/ REFLEX Timed 04/23/2019 7:53 PM EST NT PROBNP STAT 04/23/2019 5:49 PM EST HEPATIC FUNCTION PANEL STAT 04/23/2019 5:49 PM EST XR CHEST PA AND LATERAL SAMSON 04/23/2019 5:42 PM EST TROPONIN-T HIGH SENSITIVITY BASELINE W/ REFLEX STAT 04/23/2019 5:38 PM EST BASIC METABOLIC PANEL STAT 04/23/2019 5:38 PM EST CBC STAT 04/23/2019 5:38 PM EST EK EKG 12 LEAD STAT 04/23/2019 4:34 PM EST SALINE LOCK IV STAT 04/23/2019 4:34 PM EST SCANNED RADIOLOGY REPORT 08/21/2018 2:38 PM EDT SCANNED EKG 08/20/2018 10:06 PM EDT NM MYOCARDIAL PERFUSION SPECT STRESS AND REST SAMSON 08/17/2018 11:[address] STRESS TEST EXERCISE Routine 08/17/2018 10:21 AM EDT ECG AND WAVEFORMS - TELEMETRY Routine 08/17/2018 7:28 AM EDT LIPID SCREEN Routine 08/17/2018 6:12 AM EDT CBC WITH DIFF Routine 08/17/2018 6:12 AM EDT BASIC METABOLIC PANEL Routine 08/17/2018 6:12 AM EDT TROPONIN-T HIGH SENSITIVITY BASELINE W/ REFLEX Timed 08/17/2018 12:32 AM EDT EK EKG 12 LEAD Routine 08/17/2018 12:05 AM EDT ECG AND WAVEFORMS - TELEMETRY Routine 08/16/2018 10:28 PM EDT IP CONSULT TO CARDIOLOGY Routine 08/16/2018 9:21 PM EDT Procedure Note - Mandeep Beltran MD - 08/17/2018 8:08 AM EDTThis note is in progress. Cardiology Consultation Admission: 08/17/2018 Patient: Alice John [id number] PCP:Jorge Hagen MD Sewing Demonstrator: Ananth Victor MD Presents with Chest pain PMH includes CAD, PAF, ICM, HTN, HLD Reports yesterday while shaving began having severe left sided chest painbelow left breast area. States pain was not similar to previous angina orchronic chest pain. Pain lasted for one hour, radiating into left arm,took 2 NTG, tylenol and tried to lay down with minimal relief of pain.States chronic SOB slightly worse. No presyncope, syncope, diaphoresis orpalpitations. Cardiac cath '17: Severe poarch 3 vessel disease with patent 3/3 grafts Past Medical History Past Medical History: Diagnosis Date A-fib ([facility]) Angina pectoris ([facility]) Atherosclerotic heart disease 04/12/2011 NUC 03/2013- EF41% abnormal LV perfusion, mildly dil LV with moddiminished systolic function CAD (coronary artery disease) Cataracts, bilateral CHF (congestive heart failure) ([facility]) DDD (degenerative disc disease), lumbar Headache Hyperlipidemia 04/12/2011 Hypertension 04/12/2011 ECHO 03/2013- EF 40%, LV mild conc hypertrophy, RV mild dil, MV mildmitral annular calc, mild thick calc, mild mitral regurg, RVSP normal, PVmild regurg [place] (myocardial infarction) ([facility]) Obstructive sleep apnea 08/17/2011 Sleep apnea Medication No current facility-administered medications on file prior to encounter. Current Outpatient Medications on File Prior to Encounter Medication Sig Dispense Refill acetaminophen (TYLENOL) 500 mg tablet Take 500 mg by mouth every 4 hoursas needed for Pain. aspirin 81 mg tablet Take 81 mg by mouth daily. calcium carbonate (TUMS) 200 mg calcium (500 mg) chewable tablet Take 1Tab by mouth as needed for Heartburn. carvedilol (COREG) 6.25 mg Oral Tablet Take 1 Tab by mouth 2 timesdaily. (Patient taking differently: Take 12.5 mg by mouth 2 times daily.Pt states he takes 2 tabs BID) 60 Tab 5 fUROsemide (LASIX) 80 mg Oral Tablet Take by mouth 2 times daily. Ptstates he takes QD isosorbide mononitrate (IMDUR) 60 mg Oral Tablet Sustained Release 24 hrTake 1 Tab by mouth daily. 30 Tab 6 losartan (COZAAR) 25 mg tablet Take 25 mg by mouth daily. nitroGLYCERIN (NITROSTAT) 0.[address] 1 Tab under the tongueevery 5 minutes as needed. 25 Tab 4 potassium chloride (K-DUR) 10 mEq tablet Take 10 mEq by mouth 2 timesdaily. Pt takes QD Scheduled Meds: aspirin 325 mg Oral Daily carvedilol 12.5 mg Oral BID fUROsemide 80 mg Oral Daily losartan 25 mg Oral Daily nitroGLYCERIN 1 Inch Topical 4 times per day potassium chloride 10 mEq Oral Daily WM Continuous Infusions: Past Surgical History Past Surgical History: Procedure Laterality Date CARDIAC CATHETERIZATION 08/2007 severe calcific 3 vessel coronary artery disease, mildly impaired LVsystolic function with EF of 45% mild hypokinesis distal anterior wall andmoderate hypokinesis of the distal inferior wall CARDIAC SURGERY TONSILLECTOMY Allergy Allergies Allergen Reactions Amlodipine Rash Family History Family History Problem Relation Age of Onset Heart Attack Mother 54 Heart Attack Father 67 High Blood Pressure Father High Cholesterol Father Heart Attack Maternal Grandmother Heart Attack Maternal Grandfather Heart Attack Paternal Grandmother Social History Social History Tobacco Use Smoking status: Former Smoker Packs/day: 3.00 Years: 27.00 Pack years: 81.00 Start date: 03/06/1970 Last attempt to quit: 12/29/1997 Years since quittin.6 Smokeless tobacco: Former User Quit date: 12/29/1997 Substance Use Topics Alcohol use: Yes Alcohol/week: 2.4 - 3.6 oz Types: 4 - 6 Cans of beer per week Comment: 4-6 /day. Review of Systems Denies or negative for the following: Constitutional: fever, chills, weight loss, weight gain, falls ENT: headaches, visual changes Cardiovascular: see HPI Pulmonary: cough, sputum production, wheezing, hemoptysis Gastrointestinal: abdominal pain, nausea, vomiting, constipation,diarrhea, hematochezia, melena Genitourinary: change in bladder habits, hematuria Musculoskeletal: weakness, joint complaints Integumentary: rash Endocrine: fatigue Hematologic/Lymphatic: abnormal bruising or excessive bleeding Allergic/Immunologic: hives Objective: BP 118/80 (BP Location: Left arm, Patient Position: Semi Fowlers) Pulse58 Temp 97.7 F (36.5 C) (Oral) Resp 16 Ht 6' (1.829 m) Wt264 lb 12.8 oz (120.1 kg) SpO2 96% BMI 35.91 kg/m General: alert, appears stated age, cooperative and no distress Oropharynx: normal Neck: nontender, no carotid bruit, no JVD, thyroid nonenlarged Lung: clear to auscultation bilaterally Heart: regular rate and rhythm and S1, S2 normal Abdomen: soft, non-tender. Bowel sounds normal. Extremities: extremities normal, atraumatic, no cyanosis or edema Pulses: 2+ and symmetric bilaterally,brachial, radial, posterior tibialand dorsalis pedis Skin: Warm and dry Neuro: No obvious focal deficits Diagnostic tests Lab Results Component Value Date WBC 5.6 08/17/2018 HGB 16.4 08/17/2018 HCT 47.6 08/17/2018 PLT 161 08/17/2018 Lab Results Component Value Date CREATININE 1.32 (H) 08/17/2018 BUN 19 08/17/2018 NA 136 08/17/2018 K 4.2 08/17/2018 CL 98 08/17/2018 CO2 27 08/17/2018 Lab Results Component Value Date CHOLESTEROL 161 08/17/2018 TRIG 187 (H) 08/17/2018 HDL 32 (L) 08/17/2018 LDLCALC 92 08/17/2018 Lab Results Component Value Date ALT 67 (H) 08/16/2018 AST 66 (H) 08/16/2018 Lab Results Component Value Date TSH 1.980 07/19/2014 Lab Results Component Value Date INR 1.22 (H) 04/06/2016 Lab Results Component Value Date HSCTNT 08/17/2018 HSCTNT 11 08/16/2018 HSCTNT 11 08/16/2018 Xr Chest Ap Portable Result Date: 08/16/2018 XR CHEST AP PORTABLE, 08/16/2018 6:38 PM CLINICAL HISTORY: -CHEST PAINCOMPARISON: October 04, 2016 PROCEDURE COMMENTS: AP portable technique.FINDINGS: Cardiomegaly and CABG changes are stable. Left lung granulomasare stable. No pneumonia, effusion, or pneumothorax. No acute finding. - - Ct Angiogram Chest Abdomen Pelvis W Contrast Result Date: 08/16/2018 CT ANGIOGRAM CHEST ABDOMEN PELVIS W CONTRAST 08/16/2018 7:08 PM CLINICALHISTORY: -sudden cp into left arm COMPARISON: Chest x-ray from todayPROCEDURE COMMENTS: Multidetector CT angiography of the chest, abdomen,and pelvis, dissection protocol. 100 ml [id number] given. Interactive 3-Dpostprocessing done by the reviewing physician on a [email or web address] workstation,with one or more of the following: Maximum intensity projections (MIPS),Shaded surface rendering, and/or Volume rendering. Singer images archived IPLocks. Automated exposure control for dose reduction was used. CTDIvol: .6- 11.4 mGy. DLP: 812 mGy-cm. FINDINGS: CTA: Borderline aneurysmal midascending thoracic aorta, measuring 4.0 cm in maximal transversedimension. This tapers to 3.0 cm by the transverse arch. The proximaldescending thoracic aorta measures 3.2 cm in transverse dimension. Slightfocal ectasia of the infrarenal abdominal aorta measuring up to 2.5 cm.There is no dissection. Aortic valve is tricuspid. The aortic arch branchvessels, celiac artery, SMA, dual right and left renal arteries, TALISHA arewidely patent. The common, internal, and external iliac arteries arewidely patent and normal caliber. There is moderate atheroscleroticcalcification of the thoracic or abdominal aorta. CHEST: There arepostsurgical changes of median sternotomy and CABG. Cardiac chambers arenormal size. There is no mediastinal mass lesion or adenopathy within thechest. There is mild bibasilar atelectasis. No pleural effusion orpneumothorax. Calcified granulomas are noted in the left upper lobe.ABDOMEN AND PELVIS: Liver, gallbladder, spleen, pancreas, and adrenalglands are normal. There are bilateral renal cysts present. Nohydronephrosis. There are no dilated loops of bowel. No free air. Appendixis normal. Small fat-containing bilateral inguinal hernias are present. Nomass, fluid collection, or adenopathy. SKELETON: No acute osseousabnormality. 1. No aortic dissection or acute vascular abnormality. 2. Borderlineaneurysmal ascending thoracic aorta measuring up to 4.0 cm, tapering tonormal caliber by the mid transverse arch. 3. Borderline ectaticinfrarenal abdominal aorta without aneurysm. 4. No acute process in thechest, abdomen, or pelvis. - - Ek Ekg 12 Lead Result Date: 08/17/2018 NOTICE: Preliminary tracing available for review; Final Interpretation byphysician to follow. [facility] Pat Name: ALICE JOHN Department: DEPIDPatient ID: [id number] Room: 6402 Gender:Male Seasonal Recruiter: Irwin : [id number] By: ARIEL ELISE Order Number: [id number] MD: Measurements IntervalsAxis Rate: 58P: 28 [place]: 247 QRS:QRSD: 139 T: QT: 433QTc: 426Interpretive Statements SINUSBRADYCARDIA WITH FIRST DEGREE AV BLOCK WITH OCCASIONAL VENTRICULARPREMATURE COMPLEXES INTRAVENTRICULAR CONDUCTION DELAY MINIMAL VOLTAGECRITERIA FOR LVH, CONSIDER NORMAL VARIANT INFERIOR MYOCARDIAL INFARCTION,OF INDETERMINATE AGE Ek Ekg 12 Lead Result Date: 08/16/2018 NOTICE: Preliminary tracing available for review; Final Interpretation byphysician to follow. [facility] Date:2018-08-16 Pat Name: ALICE JOHN Department: DEPIDPatient ID: [id number] Room: 08 Gender: MaleTechnician: : [id number] By: [facility] Order Number: [id number] MD: MeasurementsIntervals [place] Rate: 77P: 27 OH: 233QRS: QRSD: 116 T: QT:366 QTc: 416Interpretive StatementsSINUS RHYTHM WITH FIRST DEGREE AV BLOCK WITH OCCASIONAL VENTRICULARPREMATURE COMPLEXES BORDERLINE LEFT AXIS DEVIATION MODERATEINTRAVENTRICULAR CONDUCTION DELAY MODERATE VOLTAGE CRITERIA FOR LVH,CONSIDER NORMAL VARIANT Telemetry: sinus, rate 60's The most recent cardiovascular imaging studies availabe in [employer] EMR werereviewed at time of consultation Assessment: 1. Chest pain Trop 11, 11, [address] changes Some atypical features 2. CAD CABG '08 Hx multiple stenting LHC '17 - patent grafts 3/3 with severe poarch disease 3. HTN Controlled 4. HLD Near goal No myalgia 5. Remote PAF - per records '13 Sinus CHADs Vasc 2 Deemed not ideal candidate for AC with extensive hx of medicalnoncompliance 6. Extensive hx of medical non compliance Reports compliance for past several months 3. Alcohol abuse 3-5 beers daily Per attending Plan: Plan stress test The patient was seen in collaboration with Georgie Ramires APRN DIRECTOR CLIENT SERVICES, Ihave reviewed the HPI, Problem List, ROS, H & P, Assessment/Plan of Care. I have taken a history and performed a physical examination of thispatient. I agree with the history, physical, assessment and plan asoutlined above. 62-year-old admitted with chest pain symptoms Coronary disease Post bypass surgery 2007 Last left heart catheterization 2017 with patent stents and grafts Hypertension hyperlipidemia Sinus rhythm currently a history of paroxysmal A. fib Alcohol use Negative enzymes 118/80 respirations 18 heart rate 58 JVD 5 cm S1-S2 heard no S3 Abdominal distention Trace pedal edema Sinus rhythm nonspecific ST-T wave changes Negative enzymes Lexiscan Myoview study done today no reversible ischemia Possible discharge later today outpatient follow-up with Dr. Sweetie MD HEPATIC FUNCTION PANEL Add-On 08/16/2018 7:42 PM EDT TROPONIN-T HIGH SENSITIVITY BASELINE W/ REFLEX Timed 08/16/2018 7:[address] ANGIOGRAM CHEST ABDOMEN PELVIS W CONTRAST STAT 08/16/2018 7:08 PM EDT XR CHEST AP PORTABLE SAMSON 08/16/2018 6:38 PM EDT TROPONIN-T HIGH SENSITIVITY BASELINE W/ REFLEX STAT 08/16/2018 6:32 PM EDT BASIC METABOLIC PANEL STAT 08/16/2018 6:32 PM EDT CBC WITH DIFF STAT 08/16/2018 6:32 PM EDT EK EKG 12 LEAD STAT 08/16/2018 6:10 PM EDT POCT EKG Routine 05/17/2018 2:43 PM EDT Paroxysmal atrial fibrillation (HCC) SCANNED EKG 10/06/2016 3:38 PM EDT SCANNED RHYTHM STRIPS 10/06/2016 3:38 PM EDT TROPONIN-T Timed 10/04/2016 8:59 PM EDT TROPONIN-T STAT 10/04/2016 5:04 PM EDT XR CHEST PA AND LATERAL SAMSON 10/04/2016 3:33 PM EDT SMEAR REVIEW STAT 10/04/2016 2:40 PM EDT DIFFERENTIAL STAT 10/04/2016 2:40 PM EDT TROPONIN-T STAT 10/04/2016 2:40 PM EDT BASIC METABOLIC PANEL STAT 10/04/2016 2:40 PM EDT CBC WITH DIFF STAT 10/04/2016 2:40 PM EDT EK EKG 12 LEAD STAT 10/04/2016 2:20 PM EDT SALINE LOCK IV STAT 10/04/2016 2:20 PM EDT SCANNED EKG 04/12/2016 7:51 PM EST SCANNED RHYTHM STRIPS 04/12/2016 8:13 AM EST SCANNED RHYTHM STRIPS 04/07/2016 10:49 AM EST SCANNED RHYTHM STRIPS 04/07/2016 2:50 AM EST EK EKG 12 LEAD Routine 04/07/2016 12:35 AM EST CARDIAC PROCEDURE Routine 04/06/2016 2:34 PM EST LEFT HEART CATH Routine 04/06/2016 2:34 PM EST LEFT VENTRICULOGRAM Routine 04/06/2016 2:34 PM EST PROGRAMMING EQUIPMENT OPERATOR HEMODYNAMIC WAVEFORMS Routine 04/06/2016 2:09 PM EST SCANNED RHYTHM STRIPS 04/06/2016 8:36 AM EST SCANNED RHYTHM STRIPS 04/06/2016 5:49 AM EST LIPID SCREEN Routine 04/06/2016 3:57 AM EST PT / INR Routine 04/06/2016 3:57 AM EST HEPARIN ANTI-XA, UNF Early AM 04/06/2016 3:57 AM EST TROPONIN-T Timed 04/06/2016 3:57 AM EST IP CONSULT TO PHARMACY Routine 04/06/2016 12:03 AM EST IP CONSULT TO CARDIOLOGY Routine 04/06/2016 12:03 AM EST Procedure Note - Mandeep Beltran MD - 04/06/2016 8:17 AM ESTThis note is in progress. CARDIOLOGY CONSULT Alice John Today's Date: 04/06/2016 Date of Admission: 04/05/2016 Primary Care Provider: Jorge Hagen MD Sewing Demonstrator: Valente Chief Complaint: CP Referring MD: Dr Doyle HPI: Alice John is a 60 yo male with ASHD s/p CABG in 2008, HTN,HLD, PAF(on coumadin but of consistent )presents with CP He describes chest pain in center of chest with some jaw radiation andassoc SOB similar to previous bypass pain while working in yard yesterday The pain was consistent with previous cardiac pain He describes intermittent CP related to exertion and occurring for thelast few weeks but worsened yesterday and ROS: Denies: Constitutional: fever, chills ENT: headaches, vertigo Cardiovascular: chest pain, dyspnea, palpitations, edema, orthopnea,lightheaded, syncope Pulmonary: cough, sputum production Gastrointestinal: abdominal pain, nausea, vomiting Genitourinary: change in bladder habits Musculoskeletal: weakness, joint complaints Integumentary: rash Endocrine: fatigue Hematologic/Lymphatic: abnormal bruising Allergic/Immunologic: hives Complains of: Allergies Allergen Reactions Amlodipine Rash Prior to Admission Medications Prescriptions Prior to Admission Medication Sig Dispense Refill Last Dose aspirin 81 mg tablet Take 81 mg by mouth daily. 04/05/2016 at Unknowntime atorvastatin (LIPITOR) 20 mg tablet Take 1 Tab by mouth daily. 90 Tab at Unknown time carvedilol (COREG) 6.25 mg Oral Tablet Take 1 Tab by mouth 2 timesdaily. 60 Tab 5 04/05/2016 at Unknown time fUROsemide (LASIX) 80 mg Oral Tablet Take by mouth 2 times daily.04/05/2016 at Unknown time isosorbide mononitrate (IMDUR) 60 mg Oral Tablet Sustained Release 24 hrTake 1 Tab by mouth daily. (Patient taking differently: Take 30 mg bymouth daily.) 30 Tab 6 04/05/2016 at Unknown time losartan (COZAAR) 25 mg tablet Take 25 mg by mouth daily. 04/05/2016at Unknown time naproxen (NAPROSYN) 500 mg Oral Tablet Take 500 mg by mouth 2 timesdaily. 04/05/2016 at Unknown time nitroGLYCERIN (NITROSTAT) 0.[address] 1 Tab under the tongueevery 5 minutes as needed. 25 Tab 4 04/05/2016 at Unknown time potassium chloride (K-DUR) 10 mEq tablet Take 10 mEq by mouth 2 timesdaily. 04/05/2016 at Unknown time PSYLLIUM SEED, WITH DEXTROSE, (FIBER ORAL) Take by mouth 2 times daily(with meals). 04/05/2016 at Unknown time spironolactone (ALDACTONE) 25 mg Oral Tablet Take 25 mg by mouth 2 timesdaily. 04/05/2016 at Unknown time vitamin E 400 unit capsule Take 400 Units by mouth 2 times daily.04/05/2016 at Unknown time WARFARIN SODIUM (COUMADIN ORAL) Take by mouth. 7.5 mg Mon, Wed,, Fri 5 mg Sat Sun 04/05/2016 at Unknown time acetaminophen (TYLENOL) 500 mg tablet Take 500 mg by mouth every 4 hoursas needed for Pain. Not Taking at Unknown time calcium carbonate (TUMS) 200 mg calcium (500 mg) chewable tablet Take 1Tab by mouth as needed for Heartburn. Not Taking at Unknown time Past Medical History: Past Medical History Diagnosis Date A-fib ([facility]) Atherosclerotic heart disease 04/12/2011 NUC 03/2013- EF41% abnormal LV perfusion, mildly dil LV with moddiminished systolic function CAD (coronary artery disease) Cataracts, bilateral DDD (degenerative disc disease), lumbar Hyperlipidemia 04/12/2011 Hypertension 04/12/2011 ECHO 03/2013- EF 40%, LV mild conc hypertrophy, RV mild dil, MV mildmitral annular calc, mild thick calc, mild mitral regurg, RVSP normal, PVmild regurg [place] (myocardial infarction) ([facility]) Obstructive sleep apnea 08/17/2011 Sleep apnea Surgical History: Past Surgical History Procedure Laterality Date Cardiac surgery Cardiac catheterization 08/2007 severe calcific 3 vessel coronary artery disease, mildly impaired LVsystolic function with EF of 45% mild hypokinesis distal anterior wall andmoderate hypokinesis of the distal inferior wall Family History: No family history on file. Social History: reports that he quit smoking about 18 years ago. He quit smokelesstobacco use about 18 years ago. He reports that he does not drink alcoholor use illicit drugs. Labs: No results found for: TROPONINT Lab Results Component Value Date HGB 16.7 04/05/2016 HCT 47.3 04/05/2016 PLT 243 04/05/2016 NA 138 04/05/2016 K 3.6 04/05/2016 CREATININE 1.18 04/05/2016 BUN 18 04/05/2016 TSH 1.980 07/19/2014 INR 1.24 (H) 04/05/2016 Vitals: Vitals: 04/05/16 2300 04/06/16 0005 04/06/16 0513 04/06/16 0812 BP: 109/86 120/61 120/78 118/66 BP Location: Left arm Left arm Left arm Patient Position: Semi Fowlers Semi Fowlers Semi Fowlers Pulse: 65 68 54 73 Resp: 14 18 18 18 Temp: 97.8 F (36.6 C) 98.3 F (36.8 C) TempSrc: Oral Oral SpO2: 93% 94% 93% 94% Weight: 253 lb 3.2 oz (114.9 kg) Height: 6' (1.829 m) Body mass index is 34.34 kg/(m^2). TELEMETRY: SR HR 60's Physical Exam: GEN: Alert, pleasant and oriented x3. In no acute distress. HEENT: Sclerae anicteric. No xanthelasmas. EOM's intact. NECK: Supple. Carotids without bruits. No JVD LUNGS: clear to auscultation. Chest wall nontender. HEART: RRR, no murmur, gallop, or rub. ABD: soft, nontender, positive bowel sounds EXT: no edema, +2 radial, +2 PT pulses NEURO: no obvious focal abnormalities EKG: SR with NSST Assessment: [place]/CP -trop neg x 3 -EKG Non specific anterior t wave changes ASHD s/p CABG -no LHC since bypass -lexiscan with MPI in 2013 no reversible ischemia HTN -controlled HLD -on statin -check LDL PAF -tele SR -per records in 2012 -CHADS-vasc=3 -on coumadin at home (not compliant) -INR 1.24 yesterday Plan: -check Echo -check lipids -CP concerning for USA and no LHC since 2007 bypass --trop neg x 3 howeverhas been experiencing exertional CP for several weeks and declined LHC inpast due to financial constraints He agrees to proceed today and understands the risks involved -check INR -cont BB,asa,statin,arb,NTP and prn morphine The patient was seen in collaboration with Kris Magana I have reviewedthe HPI, Problem List, ROS, H & P, Assessment/Plan of Care. I have taken a history and performed a physical examination of thispatient. I agree with the history, physical, assessment and plan asoutlined above. Chest pain CAD Post cabg Cath Today Risk benefits s1s2 TROPONIN-T STAT 04/05/2016 11:50 PM EST IP CONSULT TO PHARMACY STAT 04/05/2016 10:24 PM EST XR CHEST PA AND LATERAL SAMSON 04/05/2016 9:56 PM EST LACTIC ACID STAT 04/05/2016 9:50 PM EST DIFFERENTIAL STAT 04/05/2016 9:50 PM EST PT / INR STAT 04/05/2016 9:50 PM EST COMPREHENSIVE METABOLIC PANEL STAT 04/05/2016 9:50 PM EST TROPONIN-T STAT 04/05/2016 9:50 PM EST CBC WITH DIFF STAT 04/05/2016 9:50 PM EST SALINE LOCK IV STAT 04/05/2016 9:47 PM EST EK EKG 12 LEAD STAT 04/05/2016 9:27 PM EST COMPREHENSIVE METABOLIC PANEL Routine 07/19/2014 SCANNED LABS 08/29/2013 8:48 AM EDT SCANNED RADIOLOGY REPORT 04/05/2013 3:44 PM EST NM MYOCARDIAL PERFUSION SPECT STRESS AND REST Routine 04/05/2013 3:17 PM EST Atherosclerotic heart disease Hypertension Dyspnea ST STRESS TEST LEXISCAN Routine 04/05/2013 1:45 PM EST Atherosclerotic heart disease Hypertension Dyspnea SCANNED RHYTHM STRIPS 04/01/2013 10:02 PM EST EC ECHOCARDIOGRAM COMPLETE W DOPPLER AND COLOR FLOW MAPPING Routine 03/30/2013 10:00 AM EST XR CHEST PA AND LATERAL Routine 03/30/2013 8:47 AM EST EK EKG 12 LEAD STAT 03/30/2013 6:18 AM EST DIFFERENTIAL STAT 03/29/2013 4:33 PM EST PT / INR STAT 03/29/2013 4:33 PM EST NT PROBNP Routine 03/29/2013 4:33 PM EST TROPONIN-I STAT 03/29/2013 4:33 PM EST BASIC METABOLIC PANEL STAT 03/29/2013 4:33 PM EST CBC WITH DIFF STAT 03/29/2013 4:33 PM EST EK EKG 12 LEAD Routine 03/29/2013 3:31 PM EST SOB (shortness of breath) SCANNED RHYTHM STRIPS 04/26/2012 8:35 AM EST EK EKG 12 LEAD Routine 04/23/2012 8:33 AM EST IP CONSULT TO SOCIAL WORK Routine 04/23/2012 8:12 AM EST SCANNED RHYTHM STRIPS 04/23/2012 7:56 AM EST EK EKG 12 LEAD Routine 04/23/2012 7:42 AM EST Chest pain, unspecified CANCELED PROCEDURE 04/23/2012 7:25 AM EST CP HEPARIN ANTI-XA, UNF Early AM 04/23/2012 5:08 AM EST TROPONIN-I Timed 04/23/2012 2:59 AM EST IP CONSULT TO PHARMACY STAT 04/22/2012 9:57 PM EST EK EKG 12 LEAD STAT 04/22/2012 9:39 PM EST XR CHEST AP PORTABLE SAMSON 04/22/2012 9:27 PM EST NT PROBNP Routine 04/22/2012 9:09 PM EST DIFFERENTIAL STAT 04/22/2012 9:09 PM EST TROPONIN-I STAT 04/22/2012 9:09 PM EST BASIC METABOLIC PANEL STAT 04/22/2012 9:09 PM EST CBC WITH DIFF STAT 04/22/2012 9:09 PM EST EK EKG 12 LEAD STAT 04/22/2012 8:51 PM EST SCANNED EKG 08/23/2011 12:00 AM EDT SCANNED EKG 08/23/2011 12:00 AM EDT SCANNED LABS 08/23/2011 12:00 AM EDT SCANNED LABS 04/28/2011 12:00 AM EST SCANNED OR REPORT 10/13/2009 12:00 AM EDT XX CHEST PA & LATERAL Routine 09/25/2007 10:52 AM EDT XX CHEST PA & LATERAL Routine 08/18/2007 7:30 AM EDT EK EKG REG Routine 08/18/2007 7:13 AM EDT XX CHEST PORTABLE Routine 08/16/2007 12:12 PM EDT EK EKG REG Routine 08/16/2007 7:49 AM EDT XX CHEST PORTABLE Routine 08/16/2007 6:32 AM EDT XX CHEST PORTABLE Routine 08/15/2007 12:32 PM EDT VA CAROTID W/DUPLEX COMPLETE Routine 08/09/2007 4:05 PM EDT CC CARDIAC PROCEDURE Routine 08/09/2007 12:41 PM EDT EK EKG REG Routine 08/08/2007 7:48 AM EDT US RENAL AND BLADDER Routine 08/07/2007 6:02 PM EDT EK EKG REG Routine 08/07/2007 9:16 AM EDT EC ECHO COMPLETE PANEL Routine 08/06/2007 3:21 PM EDT EK EKG REG Routine 08/06/2007 7:22 AM EDT XX CHEST PORTABLE Routine 08/05/2007 9:10 PM EDT EK EKG REG Routine 08/05/2007 8:45 PM EDT Results * TSH REFLEX TO FT4 (09/12/2024 11:10 AM EDT) Only the most recent of2 resultswithin the time period is included. TSH Reflex 1.630 0.270 - 4.200 mcIU/mL 09/12/2024 3:55 PM EDT [facility] Blood VENOUS BLOOD / Unknown Venipuncture / Unknown 09/12/2024 11:10 AM EDT 09/12/2024 11:10 AM EDT Narrative [facility] - 09/12/2024 3:55 PM EDT Ingestion of crista doses of biotin (>5 mg/day) taken within 8 hours of drawing blood sample can interfere with this immunoassay test. Anand Victor MD CHEMISTRY ORDERABLES nal Result [facility] [address] [facility] , [place] [address] * (ABNORMAL) CBC WITH DIFF (09/12/2024 11:10 AM EDT) Only the most recent of9 resultswithin the time period is included. WBC 4.8 3.7 - 10.3 x10(3)/mcL 09/12/2024 3:49 PM EDT PREFERR[facility], [employer] RBC 4.67 4.60 - 6.10 x10(6)/mcL 09/12/2024 [...] 3:49 PM EDT [facility] [place] Percent 11.7 % 09/12/2024 3:49 PM EDT [facility] Eos Percent 2.5 % 09/12/2024 3:49 PM EDT [facility] Baso Percent 0.8 % 09/12/2024 3:49 PM EDT [facility] Neut # 3.0 1.6 - 6.1 x10(3)/mcL 09/12/2024 3:49 PM EDT [facility] Comment:Neutrophils equals s egs plus bands IMMGRAN# 0.0 0.0 - 0.1 x10(3)/mcL 09/12/2024 3:49 PM EDT [facility] Comment:Automated count of m etamyelocytes, myelocytes and promyelocytes. An absolute IG <0.1 is reported as 0.0. Lymph # 1.0(L) 1.2 - 3.9 x10(3)/mcL 09/12/2024 3:49 PM EDT [facility], [facility] [place] # 0.6 0.3 - 0.9 x10(3)/mcL 09/12/2024 3:49 PM EDT [facility], [facility] Eos# 0.1 0.0 - 0.5 x10(3)/mcL 09/12/2024 3:49 PM EDT [facility], [facility] Baso # 0.0 0.0 - 0.1 x10(3)/mcL 09/12/2024 3:49 [address] [facility], [facility] Blood VENOUS BLOOD / Unknown Venipuncture / Unknown 09/12/2024 11:10 AM EDT 09/12/2024 11:10 AM EDT Anand Victor MD HEMATOLOGY ORDERABLES F inal Result [facility], [facility] [address] [facility] , [place] [address] * (ABNORMAL) LIPID SCREEN (09/12/2024 11:10 AM EDT) Only the most recent of3 resultswithin the time period is included. Cholesterol 138 <200 mg/dL 09/12/2024 3:55 PM EDT [facility], [facility] Comment: < 200 Desirable 200 - 239 Borderline High >= 240 High Triglyceride 228(H) <150 mg/dL 09/12/2024 3:55 PM EDT [facility], [facility] Comment: < 150 Normal 150 - 199 Borderline High 200 - 499 High >= 500 Very High HDL 27(L) >=40 mg/dL 09/12/2024 3:55 PM EDT [facility], [facility] Comment: > 60 Optimal 40 - 60 Acceptable < 40 Low LDL Calculated 73 <100 mg/dL 09/12/2024 3:55 PM EDT [facility], [facility] Comment: < 100 Optimal 100 - 129 Near or above optimal 130 - 159 Borderline High 160 - 189 High >= 190 Very High The National Institutes of Health (NIH) equation is used for all lipid panels that report calculated LDL (LDL-C). Non-HDL-C Calculated 111 <=129 mg/dL 09/12/2024 3:55 PM EDT [facility] Comment: <130 Desirable 130-159 Above Desirable 160-189 Borderline High 190-219 High >= 220 Very High Fasting Specimen? Yes None 025 3:55 PM EDT [facility], [facility] Blood VENOUS BLOOD / Unknown Venipuncture / Unknown 09/12/2024 11:10 AM EDT 09/12/2024 11:10 AM EDT Anand Victor MD CHEMISTRY ORDERABLES Fi nal Result [facility], [facility] [address] [facility] , [address] [place] [id number] * (ABNORMAL) COMPREHENSIVE METABOLIC PANEL (09/12/2024 11:10 AM EDT) Only the most recent of5 resultswithin the time period is included. Sodium 133(L) 136 - 145 mmol/L 09/12/2024 3:55 PM EDT [facility] Potassium 4.2 3.5 - 5.0 mmol/L 09/12/2024 3:55 PM EDT [facility] Chloride 96(L) 98 - 107 mmol/L 09/12/2024 3:55 PM EDT [facility] Total CO2 26 22 - 29 mmol/L 09/12/2024 3:55 PM EDT [facility] Anion Gap 11 7 - 16 mmol/L [...] 09/12/2024 3:55 PM EDT [facility] eGFR (CKD-EPIcr 2020) 94 >=60 mL/min/1.7 3 m2 09/12/2024 3:55 PM EDT [facility] Comment:Estimated GFR was ca lculated using the CKD-EPIcr (2020) equation refit without race. The equation is recommended by the National Kidney Foundation - [place] [employer] Nephrology Task Force. Blood VENOUS BLOOD / Unknown Venipuncture / Unknown 09/12/2024 11:10 AM EDT 09/12/2024 11:10 AM EDT us Anand Victor MD CHEMISTRY ORDERABLES Fi nal Result [facility], [address] , [place] [address] * HOLTER MONITOR RECORDING AND ANALYSIS (04/07/2023 9:23 AM EST) Anatomical Region Laterality Modality Holter/Event Mon itoring 04/11/2023 6:38 AM EST Impressions 04/11/2023 3:[address] [facility] Test Date: 2023-04-11 Pat Name: ALICE JOHN Department: DEPID Room: Gender: Male Seasonal Recruiter: : 1955 Requested By: ANAND DRUMMOND Order Number: [id number] Philip MD: Ananth Victor MD Interpretive Statements [employer] Internship Date: 04/07/2023 Referring Provider: Dr. Anand Victor MD Patient was monitored for 48 hours. INDICATIONS: Paroxysmal atrial fibrillation CONCLUSION: Patient monitored for 2d, analyzable time was 1d 21h starting on 04/07/2023 09:18 am. Primary rhythm was Atrial Fibrillation / Flutter. Average heart rate was 84 bpm, Minimum heart rate was 61 bpm on Day :07:29 pm, Max heart rate was 137 bpm on Day :57:53 am Atrial Fibrillation or Flutter: [place] was 100 %, longest event 2d on Day :18:53 am, fastest event 137 bpm on :18:53 am Pause: 1 events, longest pause 2185 ms on :54:37 am PVC(s): [place] was 1.87 %, 4343 total PVC(s), 3 disparate morphologies Underlying atrial fibrillation with average heart rate of 84 bpm and range of 61-137 Occasional PVC Electronically Signed On 04-11-2023 15:03:47 EST by Ananth Victor MD Narrative Procedure Note Anand Victor MD - 04/11/2023 IMPRESSION [facility] Test Date: 2023-04-11 Pat Name: ALICE JOHN Department: DEPID Room: Gender: Male Seasonal Recruiter: : 1955 Requested By: ANAND CAI Order Number: [id number] Philip MD: Ananth Victor MD Interpretive Statements Sport Internship Date: 04/07/2023 Referring Provider: Dr. Anand Victor MD Patient was monitored for 48 hours. INDICATIONS: Paroxysmal atrial fibrillation CONCLUSION: Patient monitored for 2d, analyzable time was 1d 21h starting on04/07/2023 09:18 am. Primary rhythm was Atrial Fibrillation / Flutter. Average heart rate was84 bpm, Minimum heart rate was 61 bpm on Day :07:29 pm, Max heart ratewas 137 bpm on Day :57:53 am Atrial Fibrillation or Flutter: [place] was 100 %, longest event 2d on 09:18:53 am, fastest event 137 bpm on Day :18:53 am Pause: 1 events, longest pause 2185 ms on :54:37 am PVC(s): [place] was 1.87 %, 4343 total PVC(s), 3 disparate morphologies Underlying atrial fibrillation with average heart rate of 84 bpm and rangeof 61-137 Occasional PVC Electronically Signed On 04-11-2023 15:03:47 EST by Ananth Victor MD Anand Victor MD IMG HOLTER MONITOR LENNY SANTOS Final Result * EC ECHOCARDIOGRAM COMPLETE W DOPPLER AND COLOR FLOW MAPPING (04/07/2023 9:15 AM EST) Only the most recent of3 resultswithin the time period is included. LV DIASTOLIC PLAX 5.65 cm PYRAMIS Ejection Fraction 40% PYRAMIS MITRAL REGURGITATION trace PYRAMIS AORTIC STENOSIS no PYRAMIS Anatomical Region Laterality Modality Electrocardiogra phy 04/07/2023 8:32 AM EST Impressions 04/07/2023 2:07 PM EST Conclusions * Left ventricular chamber dimension is normal. * Left ventricular function is moderately reduced with an estimated ejection fraction of 40%. * The basal inferoseptal is akinetic. * The apical inferior wall, mid inferior wall, basal anterior wall, mid anterior wall, mid inferoseptal, basal anterolateral wall, mid anterolateral wall, basal anteroseptal, mid anteroseptal, basal inferolateral wall, and mid inferolateral wall are hypokinetic. * There is mildly increased left ventricular wall thickness. * Right atrial chamber dimension is mildly enlarged. * Right ventricular systolic function is normal. * The proximal ascending aorta is moderately dilated, measuring 4.5 cm. Narrative Procedure Note Anand Victor MD - 04/07/2023 IMPRESSION Conclusions * Left ventricular chamber dimension is normal. * Left ventricular function is moderately reduced with an estimatedejection fraction of 40%. * The basal inferoseptal is akinetic. * The apical inferior wall, mid inferior wall, basal anterior wall,mid anterior wall, mid inferoseptal, basal anterolateral wall, midanterolateral wall, basal anteroseptal, mid anteroseptal, basal inferolateral wall, andmid inferolateral wall are hypokinetic. * There is mildly increased left ventricular wall thickness. * Right atrial chamber dimension is mildly enlarged. * Right ventricular systolic function is normal. * The proximal ascending aorta is moderately dilated, measuring 4.5cm. us Anand Victor MD IMG ECHO ORDERABLES Fin al Result * OH ARTHROCENTESIS ASPIR&/INJ INTERM JT/BURS W/O US (03/16/2023 2:45 PM EST) Narrative ORTHOCINCY - 03/16/2023 2:45 PM EST Cecilia Ríos, ATC 03/16/2023 3:05 PM Medium Joint Injection/Arthrocentesis on 03/16/2023 2:45 PM Indications: pain Details: 22 G needle, anterior approach Medications: 1 mL BUPivacaine HCl 0.5 % (5 mg/mL); 1 mg triamcinolone acetonide 40 mg/mL Immediately prior to procedure a time out was called to verify the correct patient, procedure, equipment, net application support specialist and site/side marked as required. Patient was prepped and draped in the usual sterile fashion. us Brittney MORLEY PROCEDURE/MINOR SURGICAL ORDERA BLES Final Result [facility] * XR FOOT LEFT AP AND LATERAL STANDING (03/16/2023 2:40 PM EST) Narrative Araseli Audit - 03/16/2023 2:40 PM EST Please see physician's note from office encounter for x-ray imaging result us Brittney MORLEY IMG DIAGNOSTIC IMAGING ORDERABL ES Final Result * XR ANKLE LEFT AP LATERAL AND OBLIQUE INCLUDING STANDING (03/16/2023 2:40 PM EST) Narrative Araseli, Audit - 03/16/2023 2:40 PM EST Please see physician's note from office encounter for x-ray imaging result us Stag Harper PA IMG DIAGNOSTIC IMAGING ORDERABL ES Final Result * (ABNORMAL) POCT EKG (09/22/2022 2:55 PM EDT) Only the most recent of3 resultswithin the time period is included. 09/22/2022 2:55 PM EDT Impressions SEP OFFICE - 09/22/2022 2:58 PM EDT Atrial flutter-fibrillation Poor R-wave progression -nonspecific -consider old anterior infarct. Nonspecific T-abnormality. us Anand Victor MD POINT OF CARE CARDIOLOG Y Final Result Performing Organization Address City/[facility]/ZIP Co de Phone Number SEP OFFICE * SCANNED EKG (04/01/2022 12:05 PM EST) Only the most recent of7 resultswithin the time period is included. Anatomical Region Laterality Modality Other 04/01/2022 12:0 5 PM EST us Unknown Provider IMG ECG ORDERABLES Final Result * (ABNORMAL) PT / INR (03/31/2022 5:54 AM EST) Only the most recent of5 resultswithin the time period is included. PT 14.4(H) 10.0 - 13.1 second(s) 03/31/2022 6:29 AM EST [employer] INR 1.22(H) 0.86 - 1.12 (ratio) 03/31/2022 6:29 AM EST [employer] Comment: Level of Therapy Indications Target INR Range Standard Dose Treatment and prophylaxis of venous 2.0 - 3.0 thrombosis, pulmonary embolism High Dose High risk patients with mechanical 2.5 - 3.5 heart valves Blood VENOUS BLOOD / Unknown Venipuncture / Unknown 03/31/2022 5:54 AM EST 03/31/2022 6:09 AM EST us Fred Garza MD HEMATOLOGY ORDERABLES Fin al Result Performing Organization Address City/[facility]/ZIP Co de Phone Number [facility] [employer] [address] [facility] , [place] [address] * POTASSIUM LEVEL (03/31/2022 5:54 AM EST) Potassium 4.3 3.5 - 5.0 mmol/L 03/31/2022 6:40 AM EST [facility] [employer] Blood VENOUS BLOOD / Unknown Venipuncture / Unknown 03/31/2022 5:54 AM EST 03/31/2022 6:09 AM EST Fred Garza MD CHEMISTRY ORDERABLES Vernell l Result Performing Organization Address City/[facility]/ZIP Co de Phone Number [facility] [facility] [address] [place] [address] , [place] [address] * MAGNESIUM LEVEL (03/31/2022 5:54 AM EST) Only the most recent of3 resultswithin the time period is included. Pathologist [facility] Magnesium 1.9 1.6 - 2.4 mg/dL 03/31/2022 6:40 AM EST [facility] [employer] Blood VENOUS BLOOD / Unknown Venipuncture / Unknown 03/31/2022 5:54 AM EST 03/31/2022 6:09 AM EST Fred Garza MD CHEMISTRY ORDERABLES Vernell l Result Performing Organization Address City/[facility]/ZIP Co de Phone Number [facility] [facility] [address] [place] [address] , [address] [place] [phone] * (ABNORMAL) DIGOXIN LEVEL (03/31/2022 5:54 AM EST) Digoxin Lvl <0.3(L) 0.8 - 2.0 ng/mL 03/31/2022 6:44 AM EST [employer] [facility] Blood VENOUS BLOOD / Unknown Venipuncture / Unknown 03/31/2022 5:54 AM EST 03/31/2022 6:09 AM EST us Fred Garza MD CHEMISTRY ORDERABLES Vernell l Result [facility] [address] [place] [address] , [address] [place] [id number] * ECG AND WAVEFORMS - TELEMETRY (03/30/2022 7:02 PM EST) Only the most recent of5 resultswithin the time period is included. [facility] ECG INTERPRET Atrial Flutter [facility] 03/30/2022 7:02 PM EST Narrative [facility] - 03/30/2022 8:30 PM EST /PhormQL/trueAnthem ROUTINE QRS 0.10 QT 0.41 See Clinical Report link for waveform capture us Unknown Provider POINT OF CARE CARDIOLOGY Final Result Performing Organization Address City/[facility]/ZIP Co de Phone Number [place] [phone] * THYROID STIMULATING HORMONE (03/29/2022 12:46 PM EST) [facility] TSH 1.520 0.270 - 4.200 mcIU/mL 03/29/2022 2:08 PM EST [employer] Blood VENOUS BLOOD / Unknown Venipuncture / Unknown 03/29/2022 12:46 PM EST 03/29/2022 12:47 PM EST Narrative [employer] [facility] - 03/29/2022 2:08 PM EST Ingestion of crista doses of biotin (>5 mg/day) taken within 8 hours of drawing blood sample can interfere with this immunoassay test. us Jose Francisco Christiansen MD CHEMISTRY ORDERABLES Final Resul t [employer] [address] , [place] [address] * PHOSPHORUS LEVEL (03/29/2022 12:46 PM EST) [facility] Phosphorus 3.0 2.5 - 4.5 mg/dL 03/29/2022 1:04 PM EST [facility] Blood VENOUS BLOOD / Unknown Venipuncture / Unknown 03/29/2022 12:46 PM EST 03/29/2022 12:47 PM EST us Jose Francisco Christiansen MD CHEMISTRY ORDERABLES Final Resul t [facility] [address] [place] [address] * (ABNORMAL) BASIC METABOLIC PANEL (03/29/2022 12:46 PM EST) Only the most recent of7 resultswithin the time period is included. Sodium 133(L) 136 - 145 mmol/L 03/29/2022 1:04 PM EST [facility] Potassium 4.4 3.5 - 5.0 mmol/L 03/29/2022 1:04 PM EST [facility] Chloride 98 98 - 107 mmol/L 03/29/2022 1:04 PM EST [facility] Total CO2 25 22 - 29 mmol/L 03/29/2022 1:04 PM EST [facility] Anion Gap 10 7 - 16 mmol/L 03/29/2022 1:04 PM EST [facility] Calcium 9.9 8.8 - 10.4 mg/dL 03/29/2022 1:04 PM EST [facility] Glucose Lvl 93 82 - 100 mg/dL 03/29/2022 1:04 PM EST [facility] BUN 13 8 - 23 mg/dL 03/29/2022 1:04 PM EST [facility] Creatinine 0.98 0.67 - 1.30 mg/dL 03/29/2022 1:04 PM EST [facility] eGFR (CKD-EPIcr 2020) 85 >=60 mL/min/1.7 3 m2 03/29/2022 1:04 PM EST [facility] Comment:Estimated GFR was ca lculated using the CKD-EPIcr (2020) equation refit without race. The equation is recommended by the National Kidney Foundation - [place] [employer] of Nephrology Task Force. Blood VENOUS BLOOD / Unknown Venipuncture / Unknown 03/29/2022 12:46 PM EST 03/29/2022 12:47 PM EST us Jose Francisco Christiansen MD CHEMISTRY ORDERABLES Final Resul t Performing Organization Address City/State/[facility] Co de Phone Number [facility] [address] [place] [address] * TROPONIN-T HIGH SENSITIVITY 2HR (03/28/2022 7:05 PM EST) [id number] 2HR 20 <22 ng/L 03/28/2022 7:27 PM EST [facility] Comment:See the website [facility] for rule out [place] care pathway, conditions other than AMI that can cause elevated hs cTnT, and comparison of values from the 4th and 5th generation Dedrick tests. https://askmayoexpert.[facility].org/topic/clinical-answers/gnt-61115910/cpm-203 86807 hs-cTnT 2Hr Delta from Baseline -1 <4 ng/L 03/28/2022 7:27 PM EST [facility] Blood VENOUS BLOOD / Unknown Venipuncture / Unknown 03/28/2022 7:05 PM EST 03/28/2022 7:09 PM EST Narrative [facility] - 03/28/2022 7:27 PM EST Ingestion of crista doses of biotin (>5 mg/day) taken within 8 hours of drawing blood sample can interfere with this immunoassay test. Yaron Chaidez MD CHEMISTRY ORDERABLES Final Resul t Performing Organization Address [facility] de Phone Number [facility] [address] [place] [address] * XR CHEST AP PORTABLE (03/28/2022 3:16 PM EST) Only the most recent of3 resultswithin the time period is included. Anatomical Region Laterality Modality Chest Radiographic Talisha ging 03/28/2022 3:16 PM EST Impressions 03/28/2022 3:20 PM EST Stable cardiomegaly. No acute disease. - Note: Radiology results need to be interpreted within a comprehensive clinical context. If you have questions about the radiology report, please contact the office of the ordering clinician. Narrative 03/28/2022 3:20 PM EST XR CHEST AP PORTABLE, 03/28/2022 3:16 PM CLINICAL HISTORY: -ATRIAL FIBRILLATION COMPARISON: 04/23/2019 PROCEDURE COMMENTS: AP portable technique. FINDINGS: Support devices: No visible support devices. Heart size is enlarged but stable. Evidence prior cardiac surgery. Left-sided calcified granulomas. Lungs otherwise clear. No pneumothorax or pleural effusion. Procedure Note Manuel Azevedo MD - 03/28/2022 XR CHEST AP PORTABLE, 03/28/2022 3:16 PM CLINICAL HISTORY: -ATRIAL FIBRILLATION COMPARISON: 04/23/2019 PROCEDURE COMMENTS: AP portable technique. FINDINGS: Support devices: No visible support devices. Heart size is enlarged but stable. Evidence prior cardiac surgery. Left-sided calcified granulomas. Lungs otherwise clear. No pneumothoraxor pleural effusion. IMPRESSION: Stable cardiomegaly. No acute disease. - Note: Radiology results need to be interpreted within a comprehensiveclinical context. If you have questions about the radiology report, please contactthe office of the ordering clinician. us Yaron Chaidez MD IMG DIAGNOSTIC IMAGING ORDERABLE S Final Result * TROPONIN-T HIGH SENSITIVITY BASELINE W/ REFLEX (03/28/2022 3:11 PM EST) Only the most recent of6 resultswithin the time period is included. hv-[id number]-X 21 <22 ng/L 03/28/2022 4:00 PM EST [facility] [employer] [facility] Comment:See the website [employer] for rule out [place] care pathway, conditions other than AMI that can cause elevated hs cTnT, and comparison of values from the 4th and 5th generation Dedrick tests. https://askmayoexpert.[facility].org/topic/clinical-answers/gnt-00344917/cpm-203 13464 Blood VENOUS BLOOD / Unknown Venipuncture / Unknown 03/28/2022 3:11 PM EST 03/28/2022 3:38 PM EST Narrative [facility] - 03/28/2022 4:00 PM EST Ingestion of crista doses of biotin (>5 mg/day) taken within 8 hours of drawing blood sample can interfere with this immunoassay test. us Yaron Chaidez MD CHEMISTRY ORDERABLES Final Resul t Performing Organization Address [facility] Co de Phone Number [address] [address] * (ABNORMAL) NT PROBNP (03/28/2022 3:11 PM EST) Only the most recent of4 resultswithin the time period is included. NT Pro-BNP 540(H) <=229 pg/mL 03/28/2022 4:08 PM EST [facility] Blood VENOUS BLOOD / Unknown Venipuncture / Unknown 03/28/2022 3:11 PM EST 03/28/2022 3:38 PM EST Narrative [facility] - 03/28/2022 4:08 PM EST An NT pro-BNP level less than 300 pg/mL in any patient, regardless of age, effectively rules out acute CHF with a 99% negative predictive value. Ingestion of crista doses of biotin (>5 mg/day) taken within 8 hours of drawing blood sample can interfere with this immunoassay test. Yaron Chaidez MD CHEMISTRY ORDERABLES Final Resul t Performing Organization Address [facility] [place] [address] * EK EKG 12 LEAD (03/28/2022 2:05 PM EST) Only the most recent of13 resultswithin the time period is included. Anatomical Region Laterality Modality Electrocardiogra phy 03/28/2022 2:19 PM EST Impressions 03/28/2022 2:[address] [facility] Test Date: 2022-03-28 Pat Name: ALICE JOHN Department: DEPID Room: Gender: Male Seasonal Recruiter: George : 1955 Requested By: [facility] Order Number: [id number] Reading MD: Ananth Victor MD Measurements Intervals [place] Rate: 134 P: [place]: QRS: 1 QRSD: 119 T: -18 QT: 285 QTc: 427 Interpretive Statements Narrow complex tachcyardia - likely sinus tachcyardia with first degree AV block POSSIBLE ANTERIOR MYOCARDIAL INFARCTION, OF INDETERMINATE AGE INFERIOR MYOCARDIAL INFARCTION, OF INDETERMINATE AGE Electronically Signed On 03-28-2022 14:34:56 EST by Ananth Victor MD Narrative Procedure Note Anand Victor MD - 03/28/[address] [facility] Test Date: 2022-03-28 Pat Name: ALICE JOHN Department: DEPID Room: Gender: Male Seasonal Recruiter: Ap : 1955 Requested By: [facility] Order Number: [id number] Reading MD: Ananth Victor MD Measurements Intervals [place] Rate: 134 P: [place]: QRS: 1 QRSD: 119 T: -18 QT: 285 QTc: 427 Interpretive Statements Narrow complex tachcyardia - likely sinus tachcyardia with first degreeAV block POSSIBLE ANTERIOR MYOCARDIAL INFARCTION, OF INDETERMINATE AGE INFERIOR MYOCARDIAL INFARCTION, OF INDETERMINATE AGE Electronically Signed On 03-28-2022 14:34:56 EST by Ananth Victor MD Yaron Chaidez MD IMG ECG ORDERABLES Final Result * (ABNORMAL) CBC (03/17/2022 11:23 AM EST) Only the most recent of2 resultswithin the time period is included. WBC 6.4 3.7 - 10.3 x10(3)/mcL 03/17/2022 2:34 PM EST [facility] RBC 5.18 4.60 - 6.10 x10(6)/mcL 03/17/2022 2:34 PM EST [facility] Hgb 17.6(H) 13.7 - 17.5 g/dL 03/17/2022 2:34 PM EST [facility] Hct 49.0 40.0 - 51.0 % 03/17/2022 2:34 PM EST [facility] MCV 94.6 80.0 - 100.0 fL 03/17/2022 2:34 PM EST [facility] MCH 34.0 26.0 - 34.0 pg 03/17/2022 2:34 PM EST [facility] MCHC 35.9(H) 30.7 - 35.5 g/dL 03/17/2022 2:34 PM EST [facility] RDW 12.2 <=14.9 % 03/17/2022 2:34 PM EST [facility] Platelet 178 155 - 369 x10(3)/mcL 03/17/2022 2:34 PM EST [facility] MPV 9.0 8.8 - 12.5 fL 03/17/2022 2:34 PM EST [facility] Blood VENOUS BLOOD / Unknown Venipuncture / Unknown 03/17/2022 11:23 AM EST 03/17/2022 11:23 AM EST Batsheva Quiroz APRN HEMATOLOGY ORDERABLES Final Result Performing Organization Address [facility] Co de Phone Number [facility] [address] [facility] , [place] [address] * (ABNORMAL) WOUND CULTURE (STAIN INCLUDED) (08/07/2019 12:00 PM EDT) [facility] Culture Positive Growth(A) 08/10/2019 2:40 PM EDT [facility] Culture Very sparse growth of Mixed Skin ch[place] 08/10/2019 2:40 PM EDT [facility] Comment:No further workup. Stain Few RBCs 08/10/2019 2:40 PM EDT [facility] Stain Few WBCs 08/10/2019 2:40 PM EDT [facility] Stain No organisms seen 08/10/2019 2:40 PM EDT [facility] Swab OTHER SPECIMEN TYPE / Unknown 08/07/2019 12:00 PM EDT 08/07/2019 1:35 PM EDT Amaya LAIRD MICROBIOLOGY - GENERA L ORDERABLES Final Result Performing Organization Address [facility] Co de Phone Number [facility] [address] [facility] , [place] [address] * (ABNORMAL) HEPATIC FUNCTION PANEL (04/23/2019 5:49 PM EST) Only the most recent of2 resultswithin the time period is included. [facility] Total Protein 7.6 6.4 - 8.3 gm/dL 04/23/2019 6:08 PM EST [facility] Albumin 4.9(H) 3.2 - 4.6 gm/dL 04/23/2019 6:08 PM EST [facility] Bili Direct 0.3 0.0 - 0.3 mg/dL 04/23/2019 6:08 PM EST [facility] Bili Total 1.1 0.1 - 1.4 mg/dL 04/23/2019 6:08 PM EST [facility] AST 47(H) <=40 IU/L 04/23/2019 6:08 PM EST [facility] ALT 68(H) <=41 IU/L 04/23/2019 6:08 PM EST [facility] Alk Phos 55 40 - 129 IU/L 04/23/2019 6:08 PM EST [facility] Blood VENOUS BLOOD / Unknown Venipuncture / Unknown 04/23/2019 5:49 PM EST 04/23/2019 5:54 PM EST us Rosita Rivera HUMAN RESOURCE ADVISER CHEMISTRY [place] [address] * XR CHEST PA AND LATERAL (04/23/2019 5:42 PM EST) Only the most recent of4 resultswithin the time period is included. Anatomical Region Laterality Modality Chest Radiographic Talisha ging 04/23/2019 5:42 PM EST Impressions 04/23/2019 5:52 PM EST Cardiomegaly. No acute cardiopulmonary disease identified. - Narrative 04/23/2019 5:52 PM EST PA AND LATERAL CHEST X-RAY, 04/23/2019 5:42 PM CLINICAL HISTORY: -CHEST PAIN COMPARISON: 08/16/2018. PROCEDURE COMMENTS: Frontal and lateral views of the chest. FINDINGS: Heart remains enlarged. Prior sternotomy. Calcified left upper lobe granulomas are again noted. Lungs are otherwise clear. Cardiac, mediastinal, and hilar contours are unremarkable. Procedure Note Alice John MD - 04/23/2019 PA AND LATERAL CHEST X-RAY, 04/23/2019 5:42 PM CLINICAL HISTORY: -CHEST PAIN COMPARISON: 08/16/2018. PROCEDURE COMMENTS: Frontal and lateral views of the chest. FINDINGS: Heart remains enlarged. Prior sternotomy. Calcified left upperlobe granulomas are again noted. Lungs are otherwise clear. Cardiac,mediastinal, and hilar contours are unremarkable. IMPRESSION: Cardiomegaly. No acute cardiopulmonary disease identified. - Yu Pan MD IM DIAGNOSTIC IMAGING ORDERA BLES Final Result * SCANNED RADIOLOGY REPORT (08/21/2018 2:38 PM EDT) Only the most recent of2 resultswithin the time period is included. Anatomical Region Laterality Modality Other 08/21/2018 2:38 PM EDT Unknown Unknown IMG DIAGNOSTIC IMAGING ORDERABLE S Final Result * NM MYOCARDIAL PERFUSION SPECT STRESS AND REST (08/17/2018 11:49 AM EDT) Only the most recent of2 resultswithin the time period is included. Anatomical Region Laterality Modality Nuclear Medicine 08/17/2018 9:14 AM EDT Impressions 08/17/2018 3:13 PM EDT IMPRESSIONS No definite reversible perfusion defect. Borderline LV wall motion and function with EF approximately 50%. Narrative Procedure Note Howard Chaudhry MD - 08/17/2018 IMPRESSION IMPRESSIONS No definite reversible perfusion defect. Borderline LV wall motion and function with EF approximately 50%. Georgie Ramires APRN IMG NM CARDIAC ORDERABLES Final Result * ST STRESS TEST EXERCISE (08/17/2018 10:21 AM EDT) Anatomical Region Laterality Modality Cardiac Stress T esting 08/17/2018 9:49 AM EDT Impressions 08/17/2018 11:14 AM EDT [facility] Test Date: 2018-08-17 Pat Name: ALICE JOHN Department: DEPID Room: [facility] Gender: Male Seasonal Recruiter: ,, : 1955 Requested By: GEORGIE RAMIRES Order Number: [id number] Reading MD: Howard Chaudhry MD Interpretive Statements Type of Test: Exercise Reason for Exam: chest pain Ordering Diagnosis: chest pain Resting HR: 70 Peak HR: 134 Resting B/P 150/87 Peak B/P 202/94 1. METS achieved 5.4 2. WALKED 5:15___ MINUTES ON FULL MARK PROTOCOL 3. Target HR achieved __x_ Yes ___ NO____HEART RATE 134 4. Termination of test due to pt unsteady on the treadmill 5. Symptoms: chest pain 5/10 6. Imaging pending ____no __x__ yes Nuclear __x_ Echo ____ 7. Resting EK. Arrhythmias: PACs, PVCs, ventricular couplet Normal EKG response Artifact on tracings. 9. Conclusion: Electronically Signed On 08-17-2018 11:14:30 EDT by Howard Chaudhry MD Narrative Procedure Note Howard Chaudhry MD - 08/17/[address] [facility] Test Date: 2018-08-17 Pat Name: ALICE JOHN Department: DEPID Room: 640 Gender: Male Seasonal Recruiter: ,, : 1955 Requested By: GEORGIE RAMIRES Order Number: [id number] Reading MD: Howard Chaudhry MD Interpretive Statements Type of Test: Exercise Reason for Exam: chest pain Ordering Diagnosis: chest pain Resting HR: 70 Peak HR: 134 Resting B/P 150/87 Peak B/P 202/94 1. METS achieved 5.4 2. WALKED 5:15___ MINUTES ON FULL MARK PROTOCOL 3. Target HR achieved __x_ Yes ___ NO____HEART RATE 134 4. Termination of test due to pt unsteady on the treadmill 5. Symptoms: chest pain 5/10 6. Imaging pending ____no __x__ yes Nuclear __x_ Echo ____ 7. Resting EK. Arrhythmias: PACs, PVCs, ventricular couplet Normal EKG response Artifact on tracings. 9. Conclusion: Electronically Signed On 08-17-2018 11:14:30 EDT by Howard Chaudhry MD us Georgie Ramires HUMAN RESOURCE ADVISER IMG STRESS ORDERABLES Vernell antunez Result * CT ANGIOGRAM CHEST ABDOMEN PELVIS W CONTRAST (08/16/2018 7:08 PM EDT) Anatomical Region Laterality Modality Abdomen, Pelvis, Chest Computed Tomography 08/16/2018 7:08 PM EDT Impressions 08/16/2018 7:38 PM EDT 1. No aortic dissection or acute vascular abnormality. 2. Borderline aneurysmal ascending thoracic aorta measuring up to 4.0 cm, tapering to normal caliber by the mid transverse arch. 3. Borderline ectatic infrarenal abdominal aorta without aneurysm. 4. No acute process in the chest, abdomen, or pelvis. - - Narrative 08/16/2018 7:[address] ANGIOGRAM CHEST ABDOMEN PELVIS W CONTRAST 08/16/2018 7:08 PM CLINICAL HISTORY: -sudden cp into left arm COMPARISON: Chest x-ray from today PROCEDURE COMMENTS: Multidetector CT angiography of the chest, abdomen, and pelvis, dissection protocol. 100 ml [id number] given. Interactive 3-D postprocessing done by the reviewing physician on a [employer] workstation, with one or more of the following: Maximum intensity projections (MIPS), Shaded surface rendering, and/or Volume rendering. Singer images archived to PACS. Automated exposure control for dose reduction was used. CTDIvol: .6 - 11.4 mGy. DLP: 812 mGy-cm. FINDINGS: CTA: Borderline aneurysmal mid ascending thoracic aorta, measuring 4.0 cm in maximal transverse dimension. This tapers to 3.0 cm by the transverse arch. The proximal descending thoracic aorta measures 3.2 cm in transverse dimension. Slight focal ectasia of the infrarenal abdominal aorta measuring up to 2.5 cm. There is no dissection. Aortic valve is tricuspid. The aortic arch branch vessels, celiac artery, SMA, dual right and left renal arteries, TALISHA are widely patent. The common, internal, and external iliac arteries are widely patent and normal caliber. There is moderate atherosclerotic calcification of the thoracic or abdominal aorta. 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 Cardiac chambers are normal size. There is no mediastinal mass lesion or adenopathy within the chest. There is mild bibasilar atelectasis. No pleural effusion or pneumothorax. Calcified granulomas are noted in the left upper lobe. ABDOMEN AND PELVIS: Liver, gallbladder, spleen, pancreas, and adrenal glands are normal. There are bilateral renal cysts present. No hydronephrosis. There are no dilated loops of bowel. No free air. Appendix is normal. Small fat-containing bilateral inguinal hernias are present. No mass, fluid collection, or adenopathy. SKELETON: No acute osseous abnormality. Procedure Note Suhail Reid MD - 08/16/2018 CT ANGIOGRAM CHEST ABDOMEN PELVIS W CONTRAST 08/16/2018 7:08 PM CLINICAL HISTORY: -sudden cp into left arm COMPARISON: Chest x-ray from today PROCEDURE COMMENTS: Multidetector CT angiography of the chest, abdomen,and pelvis, dissection protocol. 100 ml IsoVue-370 given. Interactive 3-D postprocessing done by the reviewing physician on a [employer] workstation,with one or more of the following: Maximum intensity projections (MIPS), Shadedsurface rendering, and/or Volume rendering. Singer images archived to PACS.Automated exposure control for dose reduction was used. CTDIvol: .6 - 11.4 mGy. DLP:812 mGy-cm. FINDINGS: CTA: Borderline aneurysmal mid ascending thoracic aorta, measuring 4.0 cmin maximal transverse dimension. This tapers to 3.0 cm by the transversearch. The proximal descending thoracic aorta measures 3.2 cm in transversedimension. Slight focal ectasia of the infrarenal abdominal aorta measuring up to 2.5cm. There is no dissection. Aortic valve is tricuspid. The aortic archbranch vessels, celiac artery, SMA, dual right and left renal arteries, TALISHA arewidely patent. The common, internal, and external iliac arteries are widelypatent and normal caliber. There is moderate atherosclerotic calcification of thethoracic or abdominal aorta. 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 There is no mediastinal mass lesion oradenopathy within the chest. There is mild bibasilar atelectasis. No pleural effusionor pneumothorax. Calcified granulomas are noted in the left upper lobe. ABDOMEN AND PELVIS: Liver, gallbladder, spleen, pancreas, and adrenalglands are normal. There are bilateral renal cysts present. No hydronephrosis. Thereare no dilated loops of bowel. No free air. Appendix is normal. Smallfat-containing bilateral inguinal hernias are present. No mass, fluid collection, or adenopathy. SKELETON: No acute osseous abnormality. IMPRESSION: 1. No aortic dissection or acute vascular abnormality. 2. Borderline aneurysmal ascending thoracic aorta measuring up to 4.0cm, tapering to normal caliber by the mid transverse arch. 3. Borderline ectatic infrarenal abdominal aorta without aneurysm. 4. No acute process in the chest, abdomen, or pelvis. - - us Khadar Lui MD IMG CT ORDERABLES Final Res ult * SCANNED RHYTHM STRIPS (10/06/2016 3:38 PM EDT) Only the most recent of9 resultswithin the time period is included. Anatomical Region Laterality Modality Other 10/06/2016 3:38 PM EDT us Unknown Unknown IM ECG ORDERABLES Final Result * TROPONIN-T (10/04/2016 8:59 PM EDT) Only the most recent of6 resultswithin the time period is included. [facility] Troponin-T <0.01 <=0.00 ng/mL [facility] Comment: Values > or = 0.01 ng/mL have been shown to have prognostic value. Blood specimen (specimen) 10/04/2016 8:59 PM EDT 10/04/2016 9:03 PM EDT us Arie Yip MD CHEMISTRY ORDERABLES Final Result [facility] [address] [place] [address] * SMEAR REVIEW (10/04/2016 2:40 PM EDT) Pathologist [facility] Bands 3 0 - 10 % [facility] Atyp Lymph 3 0 - 5 % [facility] Aniso Slight [facility] Polychrom Slight [facility] Blood specimen (specimen) 10/04/2016 2:40 PM EDT 10/04/2016 2:57 PM EDT [facility] HEMATOLOGY ORDERABL ES Final Result Performing Organization Address [facility] Co de Phone Number [facility] [address] [place] [address] * DIFFERENTIAL (10/04/2016 2:40 PM EDT) Only the most recent of4 resultswithin the time period is included. Neut Percent 72.8 % [facility] Lymph Percent 14.5 % [facility] [place] Percent 9.4 % [facility] Eos Percent 2.3 % [facility] Baso Percent 1.0 % [facility] Neut# 6.4 1.8 - 7.7 x10(3)/mcL [facility] Lymph# 1.3 0.6 - 4.8 x10(3)/[facility] LABORATORY [place]# 0.8 0.0 - 1.3 x10(3)/[facility] LABORATORY Eos# 0.2 0.0 - 0.5 x10(3)/[facility] LABORATORY Baso# 0.1 0.0 - 0.2 x10(3)/[facility] Blood specimen (specimen) 10/04/2016 2:40 PM EDT 10/04/2016 2:57 PM EDT [facility] HEMATOLOGY ORDERABL ES Final Result Performing Organization Address City/[facility]/ZIP Co de Phone Number [facility] [address] [place] [address] * LEFT VENTRICULOGRAM, LEFT HEART CATH, CORONARY ANGIOGRAM WITH GRAFTS (04/06/2016 2:34 PM EST) Cath EF Estimated 50 % [facility] Narrative [facility] - 04/06/2016 2:49 PM EST Prox RCA lesion 100% stenosed. Mid Cx lesion 100% stenosed. Prox LAD lesion 100% stenosed. Occ Natives Patent LOCKHART to LAD Patent SVG to PDA and OM Preserved LV Coronary Findings Diagnostic Dominance: Right Left Anterior Descending: Prox LAD lesion 100% stenosed. The lesion is discrete, located at the bend and concentric. The lesion was not previously treated. There is no restenosis. The stenosis was measured by a visual reading. Left Circumflex: Mid Cx lesion 100% stenosed. The lesion is discrete, located at the bend and concentric. The lesion was not previously treated. There is no restenosis. The stenosis was measured by a visual reading. Right Coronary Artery: Prox RCA lesion 100% stenosed. The lesion is discrete, located at the bend and concentric. The lesion was not previously treated. There is no restenosis. The stenosis was measured by a visual reading. Vein Graft To RPDA: The graft was visualized by angiography and is large. The graft is angiographically normal. Vein Graft To Ost 2nd Mrg: The graft was visualized by angiography and is large. The graft is angiographically normal. LOCKHART Graft To Mid LAD: The graft was visualized by angiography and is large. The graft is angiographically normal. Intervention No interventions have been documented. Left Ventricle The left ventricle is mildly dilated. The left systolic function is low normal. The patient's LV Systolic pressure is normal. The patient's LV End Diastolic pressure is normal. LVEDP /post-A wave : 14 mmHg The ejection fraction is 50-55% by visual estimate. There are wall motion abnormalities in the left ventricle. Mitral Valve There is trivial (1+) mitral regurgitation. Aortic Valve There is no aortic valve stenosis. Complication There were no immediate complications Wall Motion The mid anterior, basilar anterior, apical anterior and apical inferior segments are normal. The mid inferior and basilar inferior segments are akinetic. us Mandeep Beltran MD CARDIAC CATH ORDERABLES Jamil estrada Result Performing Organization Address City/[facility] Co de Phone Number [facility] * PROGRAMMING EQUIPMENT OPERATOR HEMODYNAMIC WAVEFORMS (04/06/2016 2:09 PM EST) 04/06/2016 2:09 PM EST us Mandeep Beltran MD CARDIAC CATH ORDERABLES Jamil estrada Result Performing Organization Address City/[facility] Co de Phone Number [facility] [address] [place] [address] * (ABNORMAL) HEPARIN ANTI-XA, UNF (04/06/2016 3:57 AM EST) Only the most recent of2 resultswithin the time period is included. Heparin Level UNF 0.26(L) 0.30 - 0.70 IU/mL [facility] Comment:The therapeutic rang e for heparinized patients monitored by the Heparin Lvl UF is 0.30-0.70 IU/mL. Blood specimen (specimen) 04/06/2016 3:57 AM EST 04/06/2016 4:01 AM EST Narrative [facility] - 04/06/2016 4:30 AM EST Heparin anti-Xa unfractionated level every day while on heparin Fred Crane MD HEMATOLOGY ORDERABLES Fin al Result Performing Organization Address [facility] de Phone Number [facility] [address] [place] [address] * LACTIC ACID (04/05/2016 9:50 PM EST) Lactic Acid 0.7 0.5 - 2.2 mmol/L [facility] Blood specimen (specimen) UPPER LIMB STRUCTURE / Unknown 04/05/2016 9:50 PM EST 04/05/2016 10:00 PM EST Fred Crane MD CHEMISTRY ORDERABLES Vernell l Result Performing Organization Address [facility] de Phone Number [facility] [address] [place] [address] * SCANNED LABS (08/29/2013 8:48 AM EDT) Only the most recent of3 resultswithin the time period is included. us Unknown Unknown HEMATOLOGY ORDERABLES Final Resu lt * ST STRESS TEST LEXISCAN (04/05/2013 1:45 PM EST) Anatomical Region Laterality Modality Cardiac Stress T esting 04/05/2013 1:17 PM EST us Kofi Azevedo MD IMG STRESS ORDERABLES Final Re sult * TROPONIN-I (03/29/2013 4:33 PM EST) Only the most recent of3 resultswithin the time period is included. Troponin-I <0.01 <=0.06 ng/mL [facility] Blood specimen (specimen) UPPER LIMB STRUCTURE / Unknown 03/29/2013 4:33 PM EST 03/29/2013 4:33 PM EST us Christian Franco MD CHEMISTRY ORDERABLES Final Resu lt [facility] [address] [place] [address] * SCANNED OR REPORT (10/13/2009 12:00 AM EDT) Narrative 10/13/2009 3:45 PM EDT Ordered by an unspecified provider. Transcriptions Unknown, U - 10/13/2009 3:33 PM EDT us U Unknown PROCEDURE/MINOR SURGICAL ORDERAB LES Final Result * XR CHEST PA & LATERAL (09/25/2007 10:52 AM EDT) Only the most recent of2 resultswithin the time period is included. Anatomical Region Laterality Modality Other 09/25/2007 10:5 2 AM EDT Narrative 09/25/2007 2:23 PM EDT PA and lateral chest, 09/25/07. History- Shortness of breath. Comparison- 08/18/07 Heart is at the upper limits of normal in size. There has been previous median sternotomy and calcified granulomata left lung. The chest is otherwise clear. Minimal blunting of the costophrenic angle noted and unchanged. Impression- Stable exam. Strap Setter- VIRAJ VALDEZ Reading Radiologist- BAO CONTRERAS MD Released Date Time- 09/25/07 1457 Procedure Note Bao Contreras - 05/14/2009 PA and lateral chest, 09/25/07. History- Shortness of breath. Comparison- 08/18/07 Heart is at the upper limits of normal in size. There has been previous median sternotomy and calcified granulomata left lung. The chest is otherwise clear. Minimal blunting of the costophrenic angle noted and unchanged. Impression- Stable exam. Strap Setter- VIRAJ VALDEZ Reading Radiologist- BAO CONTRERAS MD Released Date Time- 09/25/07 1457 Anand Victor MD [facility] Final Result * EK EKG REG (08/18/2007 7:13 AM EDT) Only the most recent of6 resultswithin the time period is included. Anatomical Region Laterality Modality Other 08/18/2007 7:13 AM EDT Narrative 08/18/2007 12:30 PM EDT Sinus rhythm Inferior infarct - age undetermined nonspecific st and t wave abnormalities Abnormal ECG Strap Setter- JOHAN CASTANO M.D. Reading Radiologist- JOHAN CASTANO M.D. Released Date Time- 08/18/07 1230 Procedure Note Johan Castano - 05/14/2009 Sinus rhythm Inferior infarct - age undetermined nonspecific st and t wave abnormalities Abnormal ECG Strap Setter- JOHAN CASTANO M.D. Reading Radiologist- JOHAN CASTANO M.D. Released Date Time- 08/18/07 1230 us Lee Bustos MD [facility] Final Result * XR CHEST PORTABLE (08/16/2007 12:12 PM EDT) Only the most recent of4 resultswithin the time period is included. Anatomical Region Laterality Modality Other 08/16/2007 12:1 2 PM EDT Narrative 08/16/2007 3:03 PM EDT Portable chest, 12-14 p.m., 08/16/2007 History- Evaluate for pneumothorax. Compare 08/16/07. Heart remains enlarged. Prior sternotomy. [place] catheter and left chest tube have been removed^ no pneumothorax. There is hazy opacity at left base, likely a combination of pleural fluid and left basilar infiltrate. There are calcified granulomas in left midlung. There is mild right basilar atelectasis. Impression- No evidence of pneumothorax following chest tube removal. Bibasilar opacity, left greater than right, unchanged from prior. Strap Setter- NAOMI STRONG Reading Radiologist- ALICE JOHN MD Released Date Time- 08/16/072023 Procedure Note Alice John - 05/14/2009 Portable chest, 12-14 p.m., 08/16/2007 History- Evaluate for pneumothorax. Compare 08/16/07. Heart remains enlarged. Prior sternotomy. [place] catheter and left chest tube have been removed^ no pneumothorax. There is hazy opacity at left base, likely a combination of pleural fluid and left basilar infiltrate. There are calcified granulomas in left midlung. There is mild right basilar atelectasis. Impression- No evidence of pneumothorax following chest tube removal. Bibasilar opacity, left greater than right, unchanged from prior. Strap Setter- NAOMI STRONG Reading Radiologist- ALICE JOHN MD Released Date Time- 08/16/072023 Lee Bustos MD [facility] Final Result * [place] CAROTID W/DUPLEX COMPLETE (08/09/2007 4:05 PM EDT) Anatomical Region Laterality Modality Other 08/09/2007 4:05 PM EDT Narrative 08/09/2007 4:39 PM EDT CAROTID DOPPLERS History- PREOP CABG, PREVIOUS SMOKER, HTN, NONDIABETIC ANGIODYNOGRAPH Brachial Pressure- RIGHT-120 mmhg LEFT-120 mmhg Angiodynograph Study- S=Peak Systole,D=End Diastole,Kevin=CM/SEC RIGHT LEFT Kevin-S Kevin-D Kevin-S Kevin-D Proximal Common 42 11 74 26 Distal Common 52 18 88 24 Proximal Internal 52 19 45 23 Distal Internal 57 23 31 13 External 47 10 34 04 Vertebral 32 13 40 12 Angiodynograph Study Impression- MILD INTIMAL THICKENING BILATERALLY. THERE IS FIBROCALCIFIC PLAQUE SEEN IN THE PROXIMAL ROSI AND THE LICA CONSISTENT WITH A 1-39% STENOSIS. THERE IS NO EVIDENCE OF A FLOW SIGNIFICANT LESION IN THE CCAS, ICAS, OR THE ECAS ON EITHER SIDE. VERTEBRAL FLOW IS ANTEGRADE BILATERALLY. Strap Setter- GEORGIE CACERES Reading Radiologist- ALICE MESSER M.D Released Date Time- 08/10/07 0747 Procedure Note Alice Messer - 05/14/2009 CAROTID DOPPLERS History- PREOP CABG, PREVIOUS SMOKER, HTN, NONDIABETIC ANGIODYNOGRAPH Brachial Pressure- RIGHT-120 mmhg LEFT-120 mmhg Angiodynograph Study- S=Peak Systole,D=End Diastole,Kevin=CM/SEC RIGHT LEFT Kevin-S Kevin-D Kevin-S Kevin-D Proximal Common 42 11 74 26 Distal Common 52 18 88 24 Proximal Internal 52 19 45 23 Distal Internal 57 23 31 13 External 47 10 34 04 Vertebral 32 13 40 12 Angiodynograph Study Impression- MILD INTIMAL THICKENING BILATERALLY. THERE IS FIBROCALCIFIC PLAQUE SEEN IN THE PROXIMAL ROSI AND THE LICA CONSISTENT WITH A 1-39% STENOSIS. THERE IS NO EVIDENCE OF A FLOW SIGNIFICANT LESION IN THE CCAS, ICAS, OR THE ECAS ON EITHER SIDE. VERTEBRAL FLOW IS ANTEGRADE BILATERALLY. Strap Setter- GEORGIE Palacios Radiologist- ALICE MESSER M.D Released Date Time- 08/10/07 0747 us Kofi Azevedo MD [facility] F inal Result * CC CARDIAC PROCEDURE (08/09/2007 12:41 PM EDT) Anatomical Region Laterality Modality Other 08/09/2007 12:4 1 PM EDT Narrative 08/09/2007 1:42 PM EDT PROCEDURES PERFORMED- 1. Left heart catheterization. 2. Selective coronary angiography. 3. Left ventriculography. 4. Right femoral angiography. 5. Angio-Seal closure. INDICATIONS- A 51-year-old gentleman with known history of coronary artery disease, noted to have moderate three vessel coronary artery disease six years ago, who presents with symptoms of unstable angina. ROUTINE LEFT HEART CATHETERIZATION (Left Heart Cath, Left Ventriculography, Coronary Arteriography) After obtaining informed consent, the groin was prepped and draped in the usual fashion. Local anesthesia was provided with lidocaine. Using the Seldinger technique, the guide wire was placed in the femoral artery and an arterial sheath was placed, the guide wire removed, and the sheath aspirated and flushed. Using a standard J-tipped guide wire with continuous hemodynamic and electrocardiographic monitoring and appropriate flushing and manipulation of the catheters, left ventriculography, right coronary arteriography, and left coronary arteriography were performed. Following removal of the catheters, the patient was taken to the holding area where the arterial sheath was removed and hemostasis obtained. CATHETERS USED- 5 Niuean JL5, JR4. A pigtail catheter was utilized for left ventriculography. Upon completion of the procedure a right femoral angiography was performed, followed by Angio-Seal closure. FINDINGS- 1. Right coronary artery - Large caliber, dominant vessel. It is diffusely diseased. There are mild irregularities to the proximal and mid segment. At the acute margin, there is 60% focal narrowing with diffuse ectatic disease throughout the remainder of the distal vessel with diffuse 50-60% irregularities. At the crux, there is a 70-80% narrowing with 90% ostial narrowing of a large posterolateral ventricular branch, demonstrating mild diffuse irregularities. The ostium of the PDA appears to be involved with 70% ostial narrowing. There are left to right collaterals from the LAD filling the posterolateral ventricular branch retrograde. Please note that there is heavy calcification of both the proximal left and right coronary systems. 2. Left main - Fairly large caliber vessel, heavily calcified, trifurcating into left anterior descending, left circumflex and ramus intermediate. There appears to be 40-50% distal narrowing. 3. Left anterior descending - Fairly large caliber vessel, wrapping around the apex. It is diffusely diseased. The very ostial proximal segment appears to have 50% narrowing. Beyond the first septal production supv, there is 60-70% narrowing. There is diffuse 40% long segment narrowing involving the takeoff of a moderate caliber diagonal branch, which has only mild irregularities. In the distal portion of the mid vessel there is a focal 60-70% narrowing. 4. Left circumflex - This is a small caliber, nondominant vessel. Its imaging is somewhat difficult, but it appears to have high grade ostial narrowing of at least 80%. There is diffuse 50-60% narrowing in its proximal segment. He gives rise to a large obtuse marginal branch, which has 30% irregularities throughout its course. The left circ continuation appears to have 50-60% narrowing through its segment. The ostial narrowing does appear to be high grade. There is also high grade ramus intermediate, which is moderate in caliber. It appears to have high grade 80% ostial narrowing. Mild irregularities are seen throughout the remainder of the vessel. 5. Left ventriculography - Left ventricular systolic function appears to be mildly impaired. The overall ejection fraction is estimated at 45%. There is mild hypokinesis of the distal anterior wall. The distal inferior wall appears to be at least moderately hypokinetic. No significant mitral regurgitation is noted. Left ventricular pressure is 120/5. Corresponding aortic pressure 120/80. There is no gradient on pullback across the aortic valve. 6. Right femoral angiography - The right femoral artery is large in caliber and appears normal. Angio-Seal closure was performed without difficulty. IMPRESSION- 1. Severe calcific three vessel coronary artery disease as described above, proximal in nature. 2. Mildly impaired LV systolic function with EF of 45%, evidence of mild hypokinesis distal anterior wall and moderate hypokinesis of the distal inferior wall. PLAN- Will ask for CT surgical evaluation for possible bypass surgery. Strap Setter- AFUA Palacios Radiologist- Ra VICTOR MD Released Date Time- 08/10/07 0827 Procedure Note Ra Victor - 05/14/2009 PROCEDURES PERFORMED- 1. Left heart catheterization. 2. Selective coronary angiography. 3. Left ventriculography. 4. Right femoral angiography. 5. Angio-Seal closure. INDICATIONS- A 51-year-old gentleman with known history of coronary artery disease, noted to have moderate three vessel coronary artery disease six years ago, who presents with symptoms of unstable angina. ROUTINE LEFT HEART CATHETERIZATION (Left Heart Cath, Left Ventriculography, Coronary Arteriography) After obtaining informed consent, the groin was prepped and draped in the usual fashion. Local anesthesia was provided with lidocaine. Using the Seldinger technique, the guide wire was placed in the femoral artery and an arterial sheath was placed, the guide wire removed, and the sheath aspirated and flushed. Using a standard J-tipped guide wire with continuous hemodynamic and electrocardiographic monitoring and appropriate flushing and manipulation of the catheters, left ventriculography, right coronary arteriography, and left coronary arteriography were performed. Following removal of the catheters, the patient was taken to the holding area where the arterial sheath was removed and hemostasis obtained. CATHETERS USED- 5 Niuean JL5, JR4. A pigtail catheter was utilized for left ventriculography. Upon completion of the procedure a right femoral angiography was performed, followed by Angio-Seal closure. FINDINGS- 1. Right coronary artery - Large caliber, dominant vessel. It is diffusely diseased. There are mild irregularities to the proximal and mid segment. At the acute margin, there is 60% focal narrowing with diffuse ectatic disease throughout the remainder of the distal vessel with diffuse 50-60% irregularities. At the crux, there is a 70-80% narrowing with 90% ostial narrowing of a large posterolateral ventricular branch, demonstrating mild diffuse irregularities. The ostium of the PDA appears to be involved with 70% ostial narrowing. There are left to right collaterals from the LAD filling the posterolateral ventricular branch retrograde. Please note that there is heavy calcification of both the proximal left and right coronary systems. 2. Left main - Fairly large caliber vessel, heavily calcified, trifurcating into left anterior descending, left circumflex and ramus intermediate. There appears to be 40-50% distal narrowing. 3. Left anterior descending - Fairly large caliber vessel, wrapping around the apex. It is diffusely diseased. The very ostial proximal segment appears to have 50% narrowing. Beyond the first septal production supv, there is 60-70% narrowing. There is diffuse 40% long segment narrowing involving the takeoff of a moderate caliber diagonal branch, which has only mild irregularities. In the distal portion of the mid vessel there is a focal 60-70% narrowing. 4. Left circumflex - This is a small caliber, nondominant vessel. Its imaging is somewhat difficult, but it appears to have high grade ostial narrowing of at least 80%. There is diffuse 50-60% narrowing in its proximal segment. He gives rise to a large obtuse marginal branch, which has 30% irregularities throughout its course. The left circ continuation appears to have 50-60% narrowing through its segment. The ostial narrowing does appear to be high grade. There is also high grade ramus intermediate, which is moderate in caliber. It appears to have high grade 80% ostial narrowing. Mild irregularities are seen throughout the remainder of the vessel. 5. Left ventriculography - Left ventricular systolic function appears to be mildly impaired. The overall ejection fraction is estimated at 45%. There is mild hypokinesis of the distal anterior wall. The distal inferior wall appears to be at least moderately hypokinetic. No significant mitral regurgitation is noted. Left ventricular pressure is 120/5. Corresponding aortic pressure 120/80. There is no gradient on pullback across the aortic valve. 6. Right femoral angiography - The right femoral artery is large in caliber and appears normal. Angio-Seal closure was performed without difficulty. IMPRESSION- 1. Severe calcific three vessel coronary artery disease as described above, proximal in nature. 2. Mildly impaired LV systolic function with EF of 45%, evidence of mild hypokinesis distal anterior wall and moderate hypokinesis of the distal inferior wall. PLAN- Will ask for CT surgical evaluation for possible bypass surgery. Strap Setter- AFUA Palacios Radiologist- Ra VICTOR MD Released Date Time- 08/10/07 0827 Anand Victor MD [facility] Final Result * US RENAL AND BLADDER (08/07/2007 6:02 PM EDT) Anatomical Region Laterality Modality Other 08/07/2007 6:02 PM EDT Narrative 08/07/2007 1:40 PM EDT Bilateral renal ultrasound, 08/07/2007. Indication- Fever, pain. Findings- Bilateral renal ultrasound demonstrates a 12.2 x 7.1 x 6.0 cm right kidney and 12.2 x 6.2 x 5.8 cm left kidney. There is no hydronephrosis or nephrolithiasis. 1.4 cm simple cyst in the upper pole of the right kidney. Two subcentimeter simple cysts in the left kidney. The bladder is grossly normal. Impression- Bilateral renal cysts. Otherwise negative. Strap Setter- JUDITH Spann- ANABEL VIGIL M.D. Released Date Time- 08/07/07 1604 Procedure Note Anabel Vigil - 05/14/2009 Bilateral renal ultrasound, 08/07/2007. Indication- Fever, pain. Findings- Bilateral renal ultrasound demonstrates a 12.2 x 7.1 x 6.0 cm right kidney and 12.2 x 6.2 x 5.8 cm left kidney. There is no hydronephrosis or nephrolithiasis. 1.4 cm simple cyst in the upper pole of the right kidney. Two subcentimeter simple cysts in the left kidney. The bladder is grossly normal. Impression- Bilateral renal cysts. Otherwise negative. Strap SetterRene VIGIL M.D. Released Date Time- 08/07/07 1604 Pako Allen MD [facility] RAD HISTORICAL Fi nal Result * EC ECHO COMPLETE PANEL (08/06/2007 3:21 PM EDT) Anatomical Region Laterality Modality Other 08/06/2007 3:21 PM EDT Narrative 08/07/2007 12:17 PM EDT NO [place] HEART TO READ HISTORY- Chest pain, history of [place] and coronary artery disease. RECORDED MEASUREMENTS (cm) Normal Adult Values Aortic root dimension 3.3 (2.0-3.6) Left atrial dimension 4.1 (1.9-4.0) Left ventricle diastolic dimension 5.6 (3.5-5.6) Left ventricle systolic dimension 3.5 (2.5-4.0) Interventricular septal thickness 1.3 (0.6-1.1) LV posterior wall thickness 1.3 (0.6-1.1) Right ventricular dimension 3.2 (0.7-2.3) COMMENTS- 1. This study is technically adequate. 2. Left ventricle is upper normal limits of size with preserved LV systolic function. The estimated EF is 55%. In some views there appears to be mild hypokinesis of the mid to distal anterior wall. 3. Mild to moderate concentric LVH with evidence of diastolic noncompliance. 4. Right ventricle is mildly dilated with preserved RV systolic function. 5. Mild biatrial enlargement. 6. Aorta is grossly normal in size. 7. Aortic valve is trileaflet and appears grossly normal without aortic stenosis or insufficiency. 8. Mitral valve shows mild mitral annular calcification. There is very mild thickening of the anterior mitral leaflet without evidence of prolapse or stenosis. Trivial mitral insufficiency. 9. Tricuspid valve is normal without significant tricuspid insufficiency. 10. No obvious pericardial effusion. Strap Setter- MAMI LÓPEZ Reading Radiologist- Ra VICTOR MD Released Date Time- 08/07/07 1710 Procedure Note Ra Victor - 05/14/2009 NO [place] HEART TO READ HISTORY- Chest pain, history of [place] and coronary artery disease. RECORDED MEASUREMENTS (cm) Normal Adult Values Aortic root dimension 3.3 (2.0-3.6) Left atrial dimension 4.1 (1.9-4.0) Left ventricle diastolic dimension 5.6 (3.5-5.6) Left ventricle systolic dimension 3.5 (2.5-4.0) Interventricular septal thickness 1.3 (0.6-1.1) LV posterior wall thickness 1.3 (0.6-1.1) Right ventricular dimension 3.2 (0.7-2.3) COMMENTS- 1. This study is technically adequate. 2. Left ventricle is upper normal limits of size with preserved LV systolic function. The estimated EF is 55%. In some views there appears to be mild hypokinesis of the mid to distal anterior wall. 3. Mild to moderate concentric LVH with evidence of diastolic noncompliance. 4. Right ventricle is mildly dilated with preserved RV systolic function. 5. Mild biatrial enlargement. 6. Aorta is grossly normal in size. 7. Aortic valve is trileaflet and appears grossly normal without aortic stenosis or insufficiency. 8. Mitral valve shows mild mitral annular calcification. There is very mild thickening of the anterior mitral leaflet without evidence of prolapse or stenosis. Trivial mitral insufficiency. 9. Tricuspid valve is normal without significant tricuspid insufficiency. 10. No obvious pericardial effusion. Strap Setter- MAMI LÓPEZ Reading Radiologist- Ra VICTOR MD Released Date Time- 08/07/07 1710 Leah Juan HUMAN RESOURCE ADVISER [facility] Final Result Visit Diagnoses Diagnosis Start Date Atherosclerotic heart disease Coronary atherosclerosis of unspecified type of vessel, poarch or graft 04/12/2011 Hypertension Unspecified essential hypertension 04/12/2011 Hyperlipidemia Other and unspecified hyperlipidemia 04/12/2011 Atherosclerotic heart disease Coronary atherosclerosis of unspecified type of vessel, poarch or graft 04/15/2011 Hypertension Unspecified essential hypertension 04/15/2011 Hyperlipidemia Other and unspecified hyperlipidemia 04/15/2011 Dyspnea Other dyspnea and respiratory abnormality 04/15/2011 Hx of CABG Postsurgical aortocoronary bypass status 04/15/2011 Atherosclerotic heart disease Coronary atherosclerosis of unspecified type of vessel, poarch or graft 08/19/2011 Hypertension Unspecified essential hypertension 08/19/2011 Hyperlipidemia Other and unspecified hyperlipidemia 08/19/2011 Obstructive sleep apnea Obstructive sleep apnea (adult) (pediatric) 08/19/2011 Medication refill Issue of repeat prescriptions 10/07/2011 Medication refill Issue of repeat prescriptions 02/07/2012 Atherosclerotic heart disease Coronary atherosclerosis of unspecified type of vessel, poarch or graft 02/07/2012 Hypertension Unspecified essential hypertension 02/07/2012 Hyperlipidemia Other and unspecified hyperlipidemia 02/07/2012 Obstructive sleep apnea Obstructive sleep apnea (adult) (pediatric) 02/07/2012 SOB (shortness of breath) Shortness of breath 02/07/2012 Chest pain Chest pain, unspecified 04/22/2012 Medication refill Issue of repeat prescriptions 04/22/2012 CAD (coronary artery disease) Coronary atherosclerosis of unspecified type of vessel, poarch or graft 04/22/2012 Dyslipidemia Other and unspecified hyperlipidemia 04/22/2012 Atrial fibrillation (HCC) Atrial fibrillation 04/22/2012 HTN (hypertension) Unspecified essential hypertension 04/22/2012 Obesity Obesity, unspecified 04/22/2012 Chest pain, unspecified 04/24/2012 SOB (shortness of breath) Shortness of breath 03/29/2013 CHF (congestive heart failure) (HCC) Congestive heart failure, unspecified 03/29/2013 Atherosclerotic heart disease Coronary atherosclerosis of unspecified type of vessel, poarch or graft 03/29/2013 Dyspnea Other dyspnea and respiratory abnormality 03/29/2013 Hyperlipidemia Other and unspecified hyperlipidemia 03/29/2013 Hypertension Unspecified essential hypertension 03/29/2013 Obstructive sleep apnea Obstructive sleep apnea (adult) (pediatric) 03/29/2013 Congestive heart failure, unspecified 03/29/2013 Shortness of breath 03/29/2013 Atherosclerotic heart disease Coronary atherosclerosis of unspecified type of vessel, poarch or graft 04/01/2013 Hypertension Unspecified essential hypertension 04/01/2013 Dyspnea Other dyspnea and respiratory abnormality 04/01/2013 Atherosclerotic heart disease Coronary atherosclerosis of unspecified type of vessel, poarch or graft 04/05/2013 Hypertension Unspecified essential hypertension 04/05/2013 Dyspnea Other dyspnea and respiratory abnormality 04/05/2013 Atherosclerotic heart disease Coronary atherosclerosis of unspecified type of vessel, poarch or graft 04/05/2013 Hypertension Unspecified essential hypertension 04/05/2013 Dyspnea Other dyspnea and respiratory abnormality 04/05/2013 Atherosclerotic heart disease Coronary atherosclerosis of unspecified type of vessel, poarch or graft 04/19/2013 Hypertension Unspecified essential hypertension 04/19/2013 Dyspnea Other dyspnea and respiratory abnormality 04/19/2013 Hyperlipidemia Other and unspecified hyperlipidemia 04/19/2013 Chronic chest pain Chest pain, unspecified 08/28/2013 Dyspnea Other dyspnea and respiratory abnormality 08/28/2013 Atherosclerotic heart disease Coronary atherosclerosis of unspecified type of vessel, poarch or graft 08/28/2013 Cardiomyopathy (HCC) Other primary cardiomyopathies 08/28/2013 Hypertension Unspecified essential hypertension 08/28/2013 Hyperlipidemia Other and unspecified hyperlipidemia 08/28/2013 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 01/10/2014 Atherosclerotic heart disease Coronary atherosclerosis of unspecified type of vessel, poarch or graft 01/10/2014 Dyspnea Other dyspnea and respiratory abnormality 01/10/2014 Cardiomyopathy (HCC) Other primary cardiomyopathies 01/10/2014 Hypertension Unspecified essential hypertension 01/10/2014 Hyperlipidemia Other and unspecified hyperlipidemia 01/10/2014 Chronic chest pain Chest pain, unspecified 01/10/2014 Obstructive sleep apnea Obstructive sleep apnea (adult) (pediatric) 01/10/2014 Atherosclerotic heart disease Coronary atherosclerosis of unspecified type of vessel, poarch or graft 04/15/2014 Hypertension Unspecified essential hypertension 04/15/2014 Chronic chest pain Chest pain, unspecified 08/26/2014 Cardiomyopathy (HCC) Other primary cardiomyopathies 08/26/2014 Essential hypertension Unspecified essential hypertension 08/26/2014 Hyperlipidemia Other and unspecified hyperlipidemia 08/26/2014 ASHD (arteriosclerotic heart disease) Coronary atherosclerosis of unspecified type of vessel, poarch or graft 08/26/2014 Cardiomyopathy (HCC) Other primary cardiomyopathies 02/20/2015 Chronic chest pain Chest pain, unspecified 02/20/2015 Essential hypertension Unspecified essential hypertension 02/20/2015 Hyperlipidemia Other and unspecified hyperlipidemia 02/20/2015 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 02/20/2015 Obstructive sleep apnea Obstructive sleep apnea (adult) (pediatric) 02/20/2015 Unstable angina (HCC) Intermediate coronary syndrome 04/05/2016 Chronic chest pain Chest pain, unspecified 04/05/2016 ASHD (arteriosclerotic heart disease) Coronary atherosclerosis of unspecified type of vessel, poarch or graft 04/05/2016 Chest pain, unspecified type 10/04/2016 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 10/04/2016 Essential hypertension Unspecified essential hypertension 10/04/2016 Chest pain due to myocardial ischemia, unspecified ischemic chest pain type 05/17/2018 Paroxysmal atrial fibrillation (HCC) Atrial fibrillation 05/17/2018 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 05/17/2018 Essential hypertension Unspecified essential hypertension 05/17/2018 Dyspnea, unspecified type 05/17/2018 Noncompliance Personal history of noncompliance with medical treatment, presenting hazards to health 05/17/2018 Pure hypercholesterolemia 05/17/2018 Acute diastolic heart failure (HCC) Acute diastolic heart failure 05/17/2018 Ischemic cardiomyopathy Other specified forms of chronic ischemic heart disease 05/17/2018 Chest pain in adult 08/16/2018 Paroxysmal atrial fibrillation (HCC) Atrial fibrillation 09/12/2018 Essential hypertension Unspecified essential hypertension 09/12/2018 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 Coronary artery disease involving poarch coronary artery of poarch heart without angina pectoris 09/12/2018 Chest pain, unspecified type 04/23/2019 Paroxysmal atrial fibrillation (HCC) Atrial fibrillation 05/03/2019 Ischemic chest pain 05/03/2019 Coronary artery disease involving poarch coronary artery of poarch heart without angina pectoris 05/03/2019 Folliculitis Other specified disease of hair and hair follicles 08/03/2019 Allergic contact dermatitis, unspecified cause 08/07/2019 Coronary artery disease involving poarch coronary artery of poarch heart without angina pectoris 11/13/2019 Essential hypertension Unspecified essential hypertension 11/13/2019 Paroxysmal atrial fibrillation (HCC) Atrial fibrillation 11/13/2019 Ischemic chest pain 11/13/2019 Pure hypercholesterolemia 11/13/2019 Ischemic chest pain 07/06/2020 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 07/06/2020 Essential hypertension Unspecified essential hypertension 07/06/2020 Coronary artery disease involving poarch coronary artery of poarch heart without angina pectoris 12/08/2020 Ischemic chest pain 12/08/2020 Hyperchylomicronemia 12/08/2020 Essential hypertension Unspecified essential hypertension 12/08/2020 Ischemic chest pain 07/16/2021 Coronary artery disease involving poarch coronary artery of poarch heart without angina pectoris 07/16/2021 Hyperchylomicronemia 07/16/2021 Paroxysmal atrial fibrillation (HCC) Atrial fibrillation 07/16/2021 SOB (shortness of breath) Shortness of breath 07/16/2021 Ischemic chest pain 09/16/2021 SOB (shortness of breath) Shortness of breath 09/16/2021 Essential hypertension Unspecified essential hypertension 03/17/2022 Paroxysmal atrial fibrillation (HCC) Atrial fibrillation 03/17/2022 Paroxysmal atrial fibrillation (HCC) Atrial fibrillation 03/17/2022 Essential hypertension Unspecified essential hypertension 03/17/2022 Hyperchylomicronemia 03/17/2022 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 03/17/2022 Coronary artery disease involving poarch coronary artery of poarch heart without angina pectoris 03/17/2022 Atrial fibrillation with RVR (HCC) Atrial fibrillation 03/28/2022 Chest pain, unspecified type 03/28/2022 Paroxysmal atrial fibrillation (HCC) Atrial fibrillation 05/12/2022 Paroxysmal atrial fibrillation (HCC) Atrial fibrillation 09/22/2022 Hyperchylomicronemia 09/22/2022 Essential hypertension Unspecified essential hypertension 09/22/2022 Hx of CABG Postsurgical aortocoronary bypass status 09/22/2022 Essential hypertension Unspecified essential hypertension 03/09/2023 Hx of CABG Postsurgical aortocoronary bypass status 03/09/2023 Paroxysmal atrial fibrillation (HCC) Atrial fibrillation 03/09/2023 Ischemic cardiomyopathy Other specified forms of chronic ischemic heart disease 03/09/2023 SOB (shortness of breath) Shortness of breath 03/09/2023 Impaired fasting blood sugar Impaired fasting glucose 03/09/2023 Acute left ankle pain 03/09/2023 Acute left ankle pain 03/16/2023 Acute left ankle pain 03/16/2023 Acute left ankle pain 03/16/2023 Localized osteoarthritis of left ankle 03/16/2023 Hx of CABG Postsurgical aortocoronary bypass status 04/07/2023 Paroxysmal atrial fibrillation (HCC) Atrial fibrillation 04/07/2023 SOB (shortness of breath) Shortness of breath 04/07/2023 Hx of CABG Postsurgical aortocoronary bypass status 04/07/2023 Paroxysmal atrial fibrillation (HCC) Atrial fibrillation 04/07/2023 SOB (shortness of breath) Shortness of breath 04/07/2023 Paroxysmal atrial fibrillation (HCC) Atrial fibrillation 10/05/2023 Ischemic cardiomyopathy Other specified forms of chronic ischemic heart disease 10/05/2023 Essential hypertension Unspecified essential hypertension 10/05/2023 Hx of CABG Postsurgical aortocoronary bypass status 10/05/2023 Coronary artery disease involving poarch coronary artery of poarch heart without angina pectoris 02/22/2024 Hx of CABG Postsurgical aortocoronary bypass status 02/22/2024 Heart failure with mildly reduced ejection fraction (HFmrEF) (HCC) 02/22/2024 Ischemic cardiomyopathy Other specified forms of chronic ischemic heart disease 02/22/2024 Essential hypertension Unspecified essential hypertension 02/22/2024 Dyslipidemia Other and unspecified hyperlipidemia 02/22/2024 Medication refill Issue of repeat prescriptions 09/12/2024 Coronary artery disease involving poarch coronary artery of poarch heart without angina pectoris 09/12/2024 Paroxysmal atrial fibrillation (HCC) Atrial fibrillation 09/12/2024 Pure hypercholesterolemia 09/12/2024 Coronary artery disease involving poarch coronary artery of poarch heart without angina pectoris 09/12/2024 Hx of CABG Postsurgical aortocoronary bypass status 09/12/2024 Ischemic cardiomyopathy Other specified forms of chronic ischemic heart disease 09/12/2024 Essential hypertension Unspecified essential hypertension 09/12/2024 Paroxysmal atrial fibrillation (HCC) Atrial fibrillation 09/12/2024 Pure hypercholesterolemia 09/12/2024 Dyspnea Other dyspnea and respiratory abnormality 03/29/2013 Atherosclerotic heart disease Coronary atherosclerosis of unspecified type of vessel, poarch or graft 03/29/2013 Hypertension Unspecified essential hypertension 03/29/2013 Hyperlipidemia Other and unspecified hyperlipidemia 03/29/2013 Obstructive sleep apnea Obstructive sleep apnea (adult) (pediatric) 03/29/2013 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 04/05/2016 Atherosclerosis of coronary artery of poarch heart with unstable angina pectoris (HCC) 04/05/2016 Ischemic chest pain 04/05/2016 Essential hypertension Unspecified essential hypertension 04/05/2016 Hyperlipidemia Other and unspecified hyperlipidemia 04/05/2016 Obstructive sleep apnea Obstructive sleep apnea (adult) (pediatric) 04/05/2016 Paroxysmal atrial fibrillation (HCC) Atrial fibrillation 04/05/2016 Chest pain Chest pain, unspecified 10/04/2016 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 10/04/2016 Dyspnea Other dyspnea and respiratory abnormality 10/04/2016 Hyperlipidemia Other and unspecified hyperlipidemia 10/04/2016 Essential hypertension Unspecified essential hypertension 10/04/2016 Atherosclerosis of coronary artery of poarch heart with unstable angina pectoris (HCC) 10/04/2016 Paroxysmal atrial fibrillation (HCC) Atrial fibrillation 10/04/2016 Noncompliance Personal history of noncompliance with medical treatment, presenting hazards to health 10/04/2016 Paroxysmal atrial fibrillation (HCC) Atrial fibrillation 08/16/2018 Obstructive sleep apnea Obstructive sleep apnea (adult) (pediatric) 08/16/2018 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 08/16/2018 Hyperlipidemia Other and unspecified hyperlipidemia 08/16/2018 Essential hypertension Unspecified essential hypertension 08/16/2018 Acute chest pain Chest pain, unspecified 08/16/2018 Chronic chest pain Chest pain, unspecified 08/16/2018 Atrial flutter with rapid ventricular response (HCC) Atrial flutter 03/28/2022 Coronary artery disease involving poarch coronary artery of poarch heart without angina pectoris 03/28/2022 Essential hypertension Unspecified essential hypertension 03/28/2022 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 03/28/2022 Obstructive sleep apnea Obstructive sleep apnea (adult) (pediatric) 03/28/2022 Hyperlipidemia Other and unspecified hyperlipidemia 03/28/2022 Atrial fibrillation with RVR (HCC) Atrial fibrillation 03/28/2022 Care Teams [place] Relationship Specialty Start Date End Date Jorge Hagen MD PCP - General Family Medicine 04/22/12
[2024-10-16 14:00] LABS: Hemoglobin A1C 12.3 % (4.0-6.0)
== END 2024-10-14 23:59 | disposition home or self-care (01) ==
LOC: LAB.DROPOF 10-15 11:22
PROVIDERS: PCP Family Medicine; Visit Provider Family Medicine
DX: I25.10 Atherosclerotic heart disease of native coronary artery without angina pectoris (principal); Z11.59 Encounter for screening for other viral diseases; Z12.5 Encounter for screening for malignant neoplasm of prostate; I48.20 Chronic atrial fibrillation, unspecified; R73.9 Hyperglycemia, unspecified; Z95.5 Presence of coronary angioplasty implant and graft
CPT/HCPCS: 80053; 80061; 83036; 85025; 86803; 87389; G0103